=== PATIENT | female | born 1955 | race Caucasian/White ===

== ENCOUNTER → 2016-09-07 | Outpatient (CLI) | payer BC ==
[~2016-09-07] MED LIST: ALPR1TAB3 PO; B-CO1CAP17 PO; CHOL20007 PO; CLON1TAB3 PO; CLX/20 PO; FEXO1TAB58 PO; FLCP TOP; FLNIN NAE; FRCT/ PO; NATURAL THYROID MED; OLOP0.1S2 OPB; PATANASE; SNG10 PO; THY/30 PO
[2016-09-07 13:56] LABS: THYROID STIMULATING HORMONE 0.184 uIu/ml (0.300-4.500)
== END | disposition home or self-care (01) ==
LOC: C.LAB1850 11:46
PROVIDERS: ATTEND Internal Medicine
DX: E03.9 Hypothyroidism, unspecified (principal)

== ENCOUNTER → 2017-02-05 | Outpatient (CLI) | payer BC ==
[2017-02-05 12:33] LABS: BASO % 0.3 %; BASO ABS # 0.02 K/uL (0-0.2); COMPLETE YES; EOS % 1.1 %; HEMATOCRIT 40.3 % (37-47); IG% 0.2 %; LYMPH % 24.7 %; LYMPH ABS # 1.62 K/uL (1.2-3.4); MEAN CELL VOLUME 86.7 fL (80-100); MEAN CORPUSCULAR HEMOGLOBIN 29.9 pg (25-34); MEAN CORPUSCULAR HGB CONC 34.5 g/dl (32-36); MEAN PLATELET VOLUME 10.1 fL (7.4-10.4); MONO % 6.1 %; NEUT % 67.6 %; PLATELET COUNT 332 K/uL (130-400); RED BLOOD COUNT 4.65 M/uL (4.2-5.4); WHITE BLOOD COUNT 6.57 K/uL (4.8-10.8)
[2017-02-05 13:57] LABS: ALT/SGPT 23 U/L (12-78); AST/SGOT 17 U/L (15-37); BLOOD UREA NITROGEN 8 mg/dl (7-18); BUN/CREATININE RATIO 11.9 (10-20); CALCIUM 9.5 mg/dl (8.5-10.1); CARBON DIOXIDE 24 mmol/L (21-32); CHLORIDE 102 mmol/L (98-107); CREATININE 0.69 mg/dl (0.60-1.20); GLUCOSE 100 mg/dl (70-99); POTASSIUM 4.1 mmol/L (3.5-5.1); SODIUM 134 mmol/L (136-145)
[2017-02-05 14:08] LABS: ALKALINE PHOSPHATASE 92 U/L (45-117)
== END | disposition home or self-care (01) ==
LOC: C.LAB1850 11:04
PROVIDERS: ATTEND Physician Assistant
DX: E03.9 Hypothyroidism, unspecified (principal); R20.2 Paresthesia of skin; G43.109 Migraine with aura, not intractable, without status migrainosus

== ENCOUNTER 2017-03-20 10:19 | Emergency (ER) | payer BC ==
[~2017-03-20] VITALS: Ht 154.9 cm; Wt 61.8 kg
[~2017-03-20 10:19] MED LIST changes: -B-CO1CAP17 PO; -CHOL20007 PO; -CLON1TAB3 PO; -CLX/20 PO; -FEXO1TAB58 PO; -FLCP TOP; -FRCT/ PO; -OLOP0.1S2 OPB; -THY/30 PO
[2017-03-20 10:22] VITALS: TEMP 36.8; Ht 154.9 cm; Wt 61.8 kg
--- NOTE | 2017-03-20 10:47 | EMERGENCY ROOM VISIT NOTE ---
History Report prepared by Nathaniel: Maxwell Zacarias Under the Supervision of: Dr. Bud Castillo M.D. First contact with patient: 10:31 Chief Complaint: FALL Stated Complaint: HURT RIGHT FOOT BRUISED LEFT RIB History of Present Illness The patient is a 61 year old female who presents to the Emergency Room with complaints of left rib pain that began yesterday morning. At this time, she was walking her large dog when she experienced a fall. She did not lose consciousness, hit her head, or become weak. She is experiencing this rib pain along with right ankle pain. Her pain is exacerbated with movement. She rates her current pain severity a 2/10. She has a past medical history of asthma and previous right foot injuries. Source of History: patient Onset: yesterday Position: chest (left ribs) Symptom Intensity: 2/10 Quality: ache Timing: constant Modifying Factors (Worsening): movement Associated Symptoms: No LOC, No headache, No weakness Note: She is also having right ankle pain. Review of Systems All systems have been listed, reviewed, and are negative other than those previously mentioned. Please see Additional Medical History Sheet. Past Medical & Surgical Medical Problems: (1) Asthma (2) Fracture of lateral malleolus of right ankle Family History Omitted secondary to the patient's age. Social History Smoking Status: Never Smoker Smokeless Tobacco Use: No Alcohol Use: occasionally Drug Use: none Marital Status: Housing Status: lives with family Occupation Status: employed Current/Historical Medications Scheduled Cholecalciferol (Vitamin D3), 1 TAB PO Q2D Citalopram (Citalopram Hydrobromide), 30 MG PO HS Clonazepam (Klonopin), 1 MG PO HS Diclofenac Epolamine (Flector), 1 PATCH TOP BID Fexofenadine-Pseudoephedrine (Ruthie-D 24 Hour Allergy), 1 TAB PO DAILY Fluticasone Propionate (Flonase Nasal Randolph *), 1 SPRAY IRENA BID Olopatadine Hcl (Patanol 0.1% Oph), 1 DROP OPB BID Thyroid (Francitas Thyroid), 2 TAB PO DAILY Vitamin B Cmplx/Vitc/Folic Ac (Nephrocaps), 1 CAP PO Q2D Scheduled PRN Acetamin/Butalbital/Caffeine (Fioricet), 1 TAB PO UD PRN for Headache or Pain Allergies Coded Allergies: Vancomycin (Unverified Allergy, Severe, RASH, 03/20/17) Doxycycline (Unverified Allergy, Unknown, RASH,VOMITTING, 03/20/17) Erythromycin (Unverified Allergy, Unknown, rash, 03/20/17) Sodium Citrate (Unverified Adverse Reaction, Severe, Life-threatening ADR to ALL anticoagulants (Dx: CADASIL), 03/20/17) Life-threatening ADR to ALL anticoagulants (Dx: CADASIL) Sees Dr. Chairez (Neurology), pt requests that no anticoagualants ever be administered. Naproxen (Unverified Adverse Reaction, Unknown, elevated BP, 03/20/17) Physical Exam Vital Signs Date Time Temp Pulse Resp B/P (MAP) Pulse Ox O2 Delivery O2 Flow Rate FiO2 03/20/17 13:02 72 18 133/78 99 03/20/17 11:38 66 18 102/55 96 Room Air 03/20/17 10:22 36.8 68 16 113/70 96 Room Air Physical Exam GENERAL: Patient awake, alert, oriented x 3. Patient follows commands. Patient appears to be in minimal distress. Patient does not appear toxic. Patient is adequately hydrated and well-nourished. SKIN: No erythema, pallor, cyanosis or rash HEENT: Normal head, pupils equal, reactive to light and accommodation. LUNGS: Clear to auscultation. No wheezes, no rales, no rhonchi. HEART: No murmurs. No gallops. No rubs CHEST: Tenderness over the 5th-8th ribs to the left anterior chest. No ecchymosis or other signs of acute trauma. ABDOMEN: No masses, no rebound, no hepatomegaly or splenomegaly. EXTREMITIES: Swelling to the right lateral malleolus. No joint laxity. No breaks in the skin. Circulatory and sensory are intact. Motor function is limited secondary to pain. No pedal or pretibial edema. No calf or thigh tenderness. NEUROLOGIC: Cranial nerves II-XII within normal limits. No gross motor sensory function deficits. Medical Decision & Procedures ER Provider Diagnostic Interpretation: Radiology results as stated below per my review and radiologist interpretation: L RIBS UNILATERAL WITH PA CHEST CLINICAL HISTORY: fall left anterior 5-8 ribs COMPARISON STUDY: None. FINDINGS: The lungs are clear. The heart is normal in size. No pleural effusions. No pneumothorax. No acute rib fractures. IMPRESSION: No rib fractures. No pneumothorax. Electronically signed by: Rafi Fields M.D. 03/20/2017 12:21 PM Dictated Date/Time: 03/20/2017 12:19 PM RIGHT ANKLE 3 VIEWS HISTORY: Right ankle pain. sprain COMPARISON: Right ankle 01/10/2011. FINDINGS: Nondisplaced fracture at the distal tip of the right fibula. No dislocation. Diffuse soft tissue swelling. No radiopaque foreign bodies. IMPRESSION: Nondisplaced fracture at the distal tip of the right fibula. Electronically signed by: Rafi Fields M.D. 03/20/2017 12:19 PM Dictated Date/Time: 03/20/2017 12:18 PM ED Course 1031: Past medical records reviewed. The patient was evaluated in room B2. A complete history and physical examination was performed. 1235: I reevaluated the patient at this time. She is doing well. 1303: Upon reevaluation, the patient appeared to have improvement of her symptoms. I discussed today's findings with her. She verbalized agreement of the treatment plan. She was discharged home. Medical Decision Differential diagnoses considered include rib fractures, chest wall contusion, and ankle sprain/fracture. Rib x-rays are negative for fracture. The patient does not appear to have a pneumohemothorax or pulmonary contusion. X-rays of the ankle reveal a fracture of her distal fibula. She has had fractures in the past and I believe this represents an old fracture not a new one. We tried to fit her with a gel splint but that did not fit well. She has a splint at home which she will try to find. The patient was encouraged to follow-up with orthopedics in 10 days if symptoms are not resolving. The patient was given another prescription for Flector. The patient already has crutches. Medication Reconcilliation Current Medication List: was personally reviewed by me Blood Pressure Screening Patient's blood pressure: Normal blood pressure Blood pressure disposition: Did not require urgent referral Impression Primary Impression: Ankle sprain Additional Impressions: Fall Chest wall contusion Scribe Attestation The scribe's documentation has been prepared under my direction and personally reviewed by me in its entirety. I confirm that the note above accurately reflects all work, treatment, procedures, and medical decision making performed by me. Departure Information Dispostion Home / Self-Care Prescriptions Diclofenac Epolamine (Flector) 1 Patch Tdsy 1 PATCH TOP BID, #10 PATCH Prov: Bud Castillo M.D. 03/20/17 Referrals Lori Sahu D.O. (PCP) Forms HOME CARE DOCUMENTATION FORM, IMPORTANT VISIT INFORMATION Patient Instructions My [facility], Sprain Ankle Tx Additional Instructions Apply diclofenac patch twice a day to your ankle. Elevate your ankle as much as possible. Follow-up with orthopedics in 10 days if symptoms are not resolving. Problem Qualifiers
[2017-03-20] MEDS ORDERED: THY/30 PO (11:00)
[2017-03-20] MEDS ORDERED: OLOP0.1S2 OPB (11:00)
[2017-03-20] MEDS ORDERED: CLON1TAB3 PO (11:02)
[2017-03-20] MEDS ORDERED: CLX/20 PO (11:04)
[2017-03-20] MEDS ORDERED: FRCT/ PO (11:05)
[2017-03-20] MEDS ORDERED: CHOL20007 PO (11:07)
[2017-03-20] MEDS ORDERED: FEXO1TAB58 PO (11:07)
[2017-03-20] MEDS ORDERED: B-CO1CAP17 PO (11:07)
--- NOTE | 2017-03-20 12:20 | DIAGNOSTIC IMAGING REPORT ---
RIGHT ANKLE 3 VIEWS HISTORY: Right ankle pain. sprain COMPARISON: Right ankle 01/10/2011. FINDINGS: Nondisplaced fracture at the distal tip of the right fibula. No dislocation. Diffuse soft tissue swelling. No radiopaque foreign bodies. IMPRESSION: Nondisplaced fracture at the distal tip of the right fibula. Electronically signed by: Rafi Fields M.D. 03/20/2017 12:19 PM Dictated Date/Time: 03/20/2017 12:18 PM
--- NOTE | 2017-03-20 12:22 | DIAGNOSTIC IMAGING REPORT ---
L RIBS UNILATERAL WITH PA CHEST CLINICAL HISTORY: fall left anterior 5-8 ribs COMPARISON STUDY: None. FINDINGS: The lungs are clear. The heart is normal in size. No pleural effusions. No pneumothorax. No acute rib fractures. IMPRESSION: No rib fractures. No pneumothorax. Electronically signed by: Rafi Fields M.D. 03/20/2017 12:21 PM Dictated Date/Time: 03/20/2017 12:19 PM
[2017-03-20] MEDS ORDERED: FLCP TOP (12:49)
[2017-03-20 13:02] VITALS: BP 133/78; PULSE 72; O2SAT 99
== END 2017-03-20 13:03 | disposition home or self-care (01) ==
LOC: C.EDB 10:21
DX: S93.401A Sprain of unspecified ligament of right ankle, initial encounter (principal); S20.20XA Contusion of thorax, unspecified, initial encounter; W19.XXXA Unspecified fall, initial encounter; Y93.K1 Activity, walking an animal; Y99.8 Other external cause status; J45.909 Unspecified asthma, uncomplicated

== ENCOUNTER → 2018-01-27 | Outpatient (CLI) | payer OTHER ==
[~2018-01-27] MED LIST changes: -ALPR1TAB3 PO; +B-CO1CAP17 PO; +CHOL20007 PO; +CLON1TAB5 PO; +CLX/20 PO; +FEXO1TAB58 PO; +FLCP TOP; +FRCT/ PO; -NATURAL THYROID MED; +OLOP0.1S3 OPB; +OPTIRAY 320 IV PRN; -PATANASE; -SNG10 PO; +THY/30 PO
[2018-01-27 17:50] LABS: HEMATOCRIT 40.5 % (37-47); HEMOGLOBIN 14.1 g/dL (12.0-16.0); MEAN CELL VOLUME 85.4 fL (80-100); MEAN CORPUSCULAR HEMOGLOBIN 29.7 pg (25-34); MEAN PLATELET VOLUME 10.1 fL (7.4-10.4); PLATELET COUNT 339 K/uL (130-400); RED CELL DISTRIBUTION WIDTH CV 12.7 % (11.5-14.5); RED CELL DISTRIBUTION WIDTH SD 39.5 fL (36.4-46.3); WHITE BLOOD COUNT 10.19 K/uL (4.8-10.8)
[2018-01-27 17:54] LABS: MEAN CORPUSCULAR HGB CONC 34.8 g/dl (32-36)
[2018-01-27 18:10] LABS: ALBUMIN 4.1 gm/dl (3.4-5.0); ALT/SGPT 16 U/L (12-78); AST/SGOT 16 U/L (15-37); BLOOD UREA NITROGEN 10 mg/dl (7-18); CALCIUM 9.3 mg/dl (8.5-10.1); CARBON DIOXIDE 25 mmol/L (21-32); CREATININE 0.63 mg/dl (0.60-1.20); GLUCOSE 92 mg/dl (70-99); LIPASE 116 U/L (73-393); SODIUM 133 mmol/L (136-145)
[2018-01-27 18:12] LABS: ALKALINE PHOSPHATASE 88 U/L (45-117); TOTAL PROTEIN 7.5 gm/dl (6.4-8.2)
--- NOTE | 2018-01-27 20:11 | DIAGNOSTIC IMAGING REPORT ---
CT SCAN OF THE ABDOMEN AND PELVIS WITH IV CONTRAST CLINICAL HISTORY: Generalized abdominal pain. Diarrhea. COMPARISON STUDY: No priors. TECHNIQUE: Following the IV administration of 116 cc of Optiray 320, CT scan of the abdomen and pelvis is performed from the lung bases to the proximal femora. Images are reviewed in the axial, sagittal, and coronal planes. IV contrast was administered without complication. A dose lowering technique was utilized adhering to the principles of ALARA. CT DOSE: 257.21 mGy.cm FINDINGS: Lung bases: The heart is normal in size and without pericardial effusion. Calcified granulomas are present both lung bases. The lung bases are otherwise clear noting scarring/atelectasis. Liver: The contrast-enhanced liver is normal in size, contour, and attenuation. There is no intrahepatic biliary ductal dilatation. The hepatic veins and portal veins are patent. Gallbladder: Unremarkable. Spleen: Normal in size and attenuation. Pancreas: Unremarkable. Adrenal glands: Unremarkable. Kidneys: The contrast enhanced kidneys are normal in size and without hydronephrosis. The kidneys enhance symmetrically. Abdominal vasculature: The abdominal aorta is normal in course and caliber noting mild atherosclerotic calcification. Bowel: There are scattered colonic diverticula without CT evidence of acute diverticulitis. No bowel obstruction is seen. The left colon is largely decompressed. The appendix is not identified. No inflammatory change is seen in the right lower quadrant to suggest acute appendicitis. Peritoneum: There is no intraperitoneal free air or abdominal ascites. Lymphadenopathy: None. Pelvic viscera: The bladder, uterus, and adnexa are normal as visualized. Skeletal structures: The skeletal structures are osteopenic. There is mild lumbosacral spondylosis. No lytic or blastic lesions are seen. IMPRESSION: 1. There are no acute infectious or inflammatory findings in the abdomen or pelvis. 2. The appendix was not clearly visualized. No inflammatory change is seen in the right lower quadrant to suggest acute appendicitis. 3. Additional findings as above. Electronically signed by: Amor Penny M.D. 01/27/2018 8:10 PM Dictated Date/Time: 01/27/2018 8:02 PM
== END | disposition home or self-care (01) ==
LOC: C.CTS 17:26
PROVIDERS: ATTEND Family Medicine
DX: R10.84 Generalized abdominal pain (principal)

== ENCOUNTER → 2018-01-28 | Outpatient (CLI) | payer OTHER ==
[~2018-01-28] MED LIST changes: -OPTIRAY 320 IV PRN
== END | disposition home or self-care (01) ==
LOC: C.LAB 14:01
PROVIDERS: ATTEND Family Medicine
DX: R10.84 Generalized abdominal pain (principal); R19.7 Diarrhea, unspecified

== ENCOUNTER 2022-03-27 04:38 | Inpatient (IN) ==
[2022-03-27] MEDS ORDERED: MoRPHine SULFATE 4 MG/ML 1 ML CARP\\VIAL IV STA (04:58)
[2022-03-27] MEDS ORDERED: SODIUM CHLORIDE 0.9% 500 ML IV STA (04:58)
--- NOTE | 2022-03-27 05:01 | Emergency Department Note ---
Impression & Plan Colitis ADMIT ED Provider Note HPI: The patient is a 66-year-old female with history of CADASIL d/o, who presents the emergency department with generalized abdominal pain as well as nausea, vomiting, and rectal bleeding that is been ongoing throughout the day today in the evening tonight. Patient states that her symptoms seem to have acutely worsened overnight, she had several episodes of blood per rectum. Patient states that she has generalized abdominal pain. On arrival here to the ED the patient is in no acute distress, she is hemodynamically stable, she is saturating well on room air. ROS: -GI: Abdominal pain, blood per rectum *10 point review systems was conducted and is otherwise negative unless stated above *Outpatient medications and allergy history reviewed PE: General: Alert HEENT: Normocephalic, trachea midline Eyes: Extraocular eye movement is intact, no scleral erythema Pulmonary: Clear to auscultation bilaterally, no wheezing Cardio: Regular rate and rhythm GI: Abdomen is soft, tenderness to palpation diffusely without guarding or rigidity, rectal examination performed with female RN at the bedside does not show any evidence of active/gross bleeding, small external hemorrhoid without active bleeding : No suprapubic tenderness MSK: No evidence of trauma or malformation of the extremities, no edema Skin: No evidence of rash Neuro: Alert, no focal deficits 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 CT imaging of the abdomen pelvis was obtained and is concerning for an acute colitis, possibly ischemic colitis given pattern near the splenic flexure on the left side. Patient does complain of some rectal bleeding that occurred overnight, her hemoglobin is stable, slight leukocytosis greater than 14,000, no evidence of any acute kidney injury on lab work, BUN is within normal limits. Patient was given morphine here in the ED for her discomfort, she was also given IV fluids. Given the finding on CT imaging General surgery was consulted, patient was evaluated by general surgery PA, Vernell Dominguez and staffed with Dr. Nichole, recommendation was made by the general surgery service for admission to the medicine service and they will follow as consult. Patient does have a sodium citrate allergy listed, this did flag as a potential interaction with Zosyn, pharmacy was consulted and formulation we have in stock here at the hospital does not have sodium citrate per company's website information therefore Zosyn was ordered for the patient. I did asked the patient specifically about this allergy listed to sodium citrate and she tells me she does not know why it is listed. Patient was in agreement to this plan. Case was discussed [place] [facility] [place], and the patient was admitted in stable condition for further care. Diagnosis: 1. Acute abdominal pain 2. Blood per rectum 3. Colitis, acute Disposition: Admission Cristhian Collier DO Emergency Medicine Past Med/Surg History Family History (Updated 05/23/19 @ 16:29 by Linda Daniels LPN) Father CADASIL (cerebral AD arteriopathy w infarcts and leukoencephalopathy) Mother Stroke Diabetes Breast cancer Aunt Breast cancer Social History (Updated 05/23/19 @ 16:29 by Linda Daniels LPN) Smoking Status: Never smoker Feels Safe at Home: Yes Allergies Allergies Allergy/AdvReac Type Severity Reaction Status Date / Time vancomycin Allergy Severe RASH Unverified 05/06/21 13:03 doxycycline Allergy Unknown RASH,VOMITT Unverified 05/06/21 13:03 ING erythromycin base Allergy Unknown rash Unverified 05/06/21 13:03 sodium citrate AdvReac Severe Life-threatening Unverified 05/06/21 13:03 ADR to ALL anticoagulants (Dx: CADASIL) naproxen AdvReac Unknown elevated BP Unverified 05/06/21 13:03 Animal dander - Cats Allergy Unknown Uncoded 05/06/21 13:03 Animal dander - Dogs Allergy Unknown Uncoded 05/06/21 13:03 Animal dander - Horses Allergy Unknown Uncoded 05/06/21 13:03 Dust Allergy Unknown Uncoded 05/06/21 13:03 Grass Allergy Unknown Uncoded 05/06/21 13:03 Pollen Allergy Unknown Uncoded 05/06/21 13:03 Tetracyclines Allergy Unknown Uncoded 05/06/21 13:03 Trees Allergy Unknown Uncoded 05/06/21 13:03 Vibramycin CAPS Allergy Unknown Uncoded 05/06/21 13:03 Vicodin TABS Allergy Unknown Uncoded 05/06/21 13:03 Home Meds Home Medications Medication Instructions Recorded Confirmed arginine (L-arginine) 500 mg 1 cap PO .Take 1 capsule twice 05/23/19 05/06/21 capsule azelastine 137 mcg (0.1 %) nasal intranasal 05/23/19 05/06/21 spray aerosol fluticasone propionate 220 inhalation .INHALE 2 PUFFS TWICE 05/23/19 05/06/21 mcg/actuation HFA aerosol inhaler fluticasone propionate 50 intranasal .instill 2 sprays int 05/23/19 05/06/21 mcg/actuation nasal spray,suspension multivitamin with minerals [Akorns PO 05/23/19 05/06/21 Antioxidants] olopatadine 0.2 % eye drops ophthalmic (eye) 05/23/19 05/06/21 thyroid (pork) 60 mg tablet mg PO .TAKE 1 TABLET DAILY. 05/23/19 05/06/21 citalopram 20 mg tablet 30 mg PO DAILY 04/10/20 05/06/21 lorazepam 1 mg tablet 1 mg PO DAILY PRN 04/10/20 05/06/21 baclofen PO 10/08/20 05/06/21 Previous Rx's Medication Instructions Recorded aspirin 81 mg tablet,delayed 81 mg PO DAILY #30 tabs 12/24/20 release [id number]-ddobxtwplwanb-cznvlefa 1 tab PO BID PRN pain #30 tabs 11/26/21 50 mg-325 mg-40 mg tablet Results & Data (ED) Vital Signs Vital Signs - 24 hr 03/27/22 04:45 03/27/22 05:10 03/27/22 06:30 Temperature 36.6 C Temperature Source Temporal Artery Scan Pulse Rate 78 Pulse Rate [Finger] 78 Respiratory Rate 18 20 Respiratory Effort / Characteristics Respiratory Depth Respiratory Pattern Blood Pressure 145/78 H Blood Pressure [Right Arm] 145/74 H Blood Pressure Mean 100 Blood Pressure Mean [Right Arm] 97 Pulse Oximetry 95 96 93 Oxygen Delivery Method Room Air Room Air Room Air Sepsis Recent Fever Within 48 Hours No Sepsis New/Unexplained Change in Mental Status No Sepsis Action Taken by Nursing No Action Required 03/27/22 08:00 Temperature Temperature Source Pulse Rate Pulse Rate [Finger] 74 Respiratory Rate 18 Respiratory Effort / Characteristics Non-Labored Respiratory Depth Normal Respiratory Pattern Regular Blood Pressure Blood Pressure [Right Arm] 129/85 Blood Pressure Mean Blood Pressure Mean [Right Arm] 99 Pulse Oximetry 93 Oxygen Delivery Method Room Air Sepsis Recent Fever Within 48 Hours Sepsis New/Unexplained Change in Mental Status Sepsis Action Taken by Nursing Laboratory Data Result diagrams: 03/27/22 05:12 03/27/22 05:12 Lab Results 03/27/22 03/27/22 03/27/22 Range/Units 05:12 05:12 06:25 WBC 14.61 H (4.8-10.8) K/ul RBC 4.72 (3.93-5.22) M/uL Hgb 14.2 (12.0-16.0) g/dl Hct 40.7 (34.1-44.9) % MCV 86.2 (80.0-100.0) fL MCH 30.1 (25.0-34.0) pg MCHC 34.9 (32.0-36.0) g/dL RDW Std Deviation 39.5 (36.4-46.3) fL RDW Coeff of Kelly 12.5 (11.5-14.5) % Plt Count 475 H (130-400) K/uL MPV 9.5 (9.4-12.3) fL Immature Gran % (Auto) 0.3 % Neut % (Auto) 90.1 % Lymph % (Auto) 4.7 % [place] % (Auto) 4.5 % Eos % (Auto) 0.1 % Baso % (Auto) 0.3 % Neut # (Auto) 13.17 H (1.4-6.5) K/uL Lymph # (Auto) 0.69 L (1.2-3.4) K/uL [place] # (Auto) 0.66 (0.24-0.82) K/uL Eos # (Auto) 0.01 (0-0.50) K/uL Baso # (Auto) 0.04 (0-0.2) K/uL Immature Gran # (Auto) 0.04 H (0.00-0.02) K/uL RBC Morphology Unremarkable Sodium 132 L (136-145) mmol/L Potassium 4.0 (3.5-5.1) mmol/L Chloride 99 (98-107) mmol/L Carbon Dioxide 23 (21-32) mmol/L Anion Gap 10 (3-11) BUN 13 (6-23) mg/dl Creatinine 0.60 (0.6-1.2) mg/dl Est Cr Clr Drug Dosing 76.2 ml/min Est GFR ( Amer) 109.3 ml/min Est GFR (Non-Af Amer) 94.3 ml/min BUN/Creatinine Ratio 21.7 H (10-20) Glucose 149 H (70-99(Fasting)) mg/dl Calcium 9.4 (8.5-10.1) mg/dl Total Bilirubin 0.6 (0.2-1.0) mg/dl AST 16 (13-39) U/L ALT 12 (7-52) U/L Alkaline Phosphatase 87 (34-104) U/L Total Protein 7.7 (6.0-8.3) gm/dl Albumin 4.4 (3.4-5.0) gm/dl Globulin 3.3 (2.5-4.0) gm/dl Albumin/Globulin Ratio 1.3 (0.9-2) Lipase 12 (11-82) U/L Urine Color Yellow Urine Appearance Clear (Clear) Urine pH 7.0 (4.5-7.5) Ur Specific [place] 1.025 (1.000-1.030) Urine Protein Negative (Negative) Urine Glucose (UA) Negative (Negative) Urine Ketones Negative (Negative) Urine Blood Negative (Negative) Urine Nitrite Negative (Negative) Urine Bilirubin Negative (Negative) Urine Urobilinogen Negative (Negative) Ur Leukocyte Esterase Negative (Negative) SARS-CoV-2, RNA, NAAT (NEGATIVE) 03/27/22 Range/Units 07:12 WBC (4.8-10.8) K/ul RBC (3.93-5.22) M/uL Hgb (12.0-16.0) g/dl Hct (34.1-44.9) % MCV (80.0-100.0) fL MCH (25.0-34.0) pg MCHC (32.0-36.0) g/dL RDW Std Deviation (36.4-46.3) fL RDW Coeff of Kelly (11.5-14.5) % Plt Count (130-400) K/uL MPV (9.4-12.3) fL Immature Gran % (Auto) % Neut % (Auto) % Lymph % (Auto) % [place] % (Auto) % Eos % (Auto) % Baso % (Auto) % Neut # (Auto) (1.4-6.5) K/uL Lymph # (Auto) (1.2-3.4) K/uL [place] # (Auto) (0.24-0.82) K/uL Eos # (Auto) (0-0.50) K/uL Baso # (Auto) (0-0.2) K/uL Immature Gran # (Auto) (0.00-0.02) K/uL RBC Morphology Sodium (136-145) mmol/L Potassium (3.5-5.1) mmol/L Chloride (98-107) mmol/L Carbon Dioxide (21-32) mmol/L Anion Gap (3-11) BUN (6-23) mg/dl Creatinine (0.6-1.2) mg/dl Est Cr Clr Drug Dosing ml/min Est GFR ( Amer) ml/min Est GFR (Non-Af Amer) ml/min BUN/Creatinine Ratio (10-20) Glucose (70-99(Fasting)) mg/dl Calcium (8.5-10.1) mg/dl Total Bilirubin (0.2-1.0) mg/dl AST (13-39) U/L ALT (7-52) U/L Alkaline Phosphatase (34-104) U/L Total Protein (6.0-8.3) gm/dl Albumin (3.4-5.0) gm/dl Globulin (2.5-4.0) gm/dl Albumin/Globulin Ratio (0.9-2) Lipase (11-82) U/L Urine Color Urine Appearance (Clear) Urine pH (4.5-7.5) Ur Specific [place] (1.000-1.030) Urine Protein (Negative) Urine Glucose (UA) (Negative) Urine Ketones (Negative) Urine Blood (Negative) Urine Nitrite (Negative) Urine Bilirubin (Negative) Urine Urobilinogen (Negative) Ur Leukocyte Esterase (Negative) SARS-CoV-2, RNA, NAAT NEGATIVE (NEGATIVE) Administered Medications Discontinued Medications Sodium Chloride (Nss) 500 mls @ 999 mls/hr IV .Q31M STA Stop: 03/27/22 05:28 Last Infusion: 03/27/22 05:49 Dose: 0 mls/hr Documented By: Admin: 03/27/22 05:18 Dose: 999 mls/hr Documented By: CHRIS Ioversol (Ioversol 350 Mg 100ml Prefilled Syringe) 94 ml IV ONCE ONE Stop: 03/27/22 06:18 Last Admin: 03/27/22 06:17 Dose: 94 ml Documented By: STEPHANIE Morphine Sulfate (Morphine Sulfate 4 Mg/Ml 1 Ml Carp\Vial) 4 mg IV NOW STA Stop: 03/27/22 04:59 Last Admin: 03/27/22 05:18 Dose: 4 mg Documented By: CHRIS Imaging Data Radiologist's Impression: Abdomen/Pelvis CT 03/27/22 04:59 CT OF THE ABDOMEN AND PELVIS WITH CONTRAST CLINICAL HISTORY: N/V abdominal pain, rectal bleeding COMPARISON STUDY: CT of the abdomen and pelvis January 27, 2018. TECHNIQUE: Following IV administration of 94 mL of Optiray, axial images of the abdomen and pelvis were obtained from the lung bases to the proximal femurs. Images were reviewed in the axial, sagittal, and coronal planes. IV contrast was administered without complication. Automated exposure control was utilized for the study. A dose lowering technique was utilized adhering to the principles of ALARA. CT DOSE: 279.40 mGy.cm FINDINGS: There is evidence for a previous granulomatous process with calcified mediastinal and hilar lymph nodes as well as calcified granulomas within the lung bases. No pneumatosis, free air or portal venous gas is present. Liver, spleen, adrenal glands, kidneys and pancreas are unremarkable. There is no shivani iary or pancreatic ductal dilatation. There is no hydronephrosis. There is no evidence for a bowel obstruction. Note is made of moderate wall thickening with adjacent stranding of the mid to distal descending colon, splenic flexure and descending colon. No free air is present. There is no abscess. There is no evidence for a bowel obstruction. The appendix is normal. Moderate plaque of the abdominal aorta is noted. Major branch vessels are patent. No ascites is present. There is no lymphadenopathy. No acute fracture or suspicious lesion is identified within visualized skeletal structures. IMPRESSION: Moderate wall thickening of the mid to distal transverse colon, splenic flexure and descending colon with pericolonic infiltration. This r epresents a colitis. Although nonspecific, this distribution raises the possibility of ischemic colitis. An infectious or inflammatory etiology could appear similar. No free air. No abscess. ACT 112: Negative or not required by law. Electronically signed by: John Mayes M.D. 03/27/2022 6:53 AM Discharge Plan Visit Data Chief Complaint: Vomiting Stated Complaint: VOMITING AND BLOOD IN STOOL ED Provider: Cristhian Collier Discharge Problem: Colitis Forms Stand Alone Forms: My [facility] Prescriptions Prescriptions: No Action aspirin 81 mg tablet,delayed release (DR/EC) 81 mg PO DAILY Qty: 30 2RF toytrkohzv-lfcpkxfcgkgln-kntr 50-325-40 mg tablet 1 tab PO BID PRN (Reason: pain) Qty: 30 1RF arginine (L-arginine) 500 mg capsule 1 cap PO .Take 1 capsule twice thyroid (pork) 60 mg tablet PO .TAKE 1 TABLET DAILY. olopatadine 0.2 % drops OP Flovent HFA 220 mcg/actuation HFA aerosol inhaler INH .INHALE 2 PUFFS TWICE azelastine 137 mcg (0.1 %) aerosol,spray INTNAS fluticasone propionate 50 mcg/actuation spray,suspension INTNAS .instill 2 sprays int multivitamin with minerals PO lorazepam 1 mg tablet 1 mg PO DAILY PRN citalopram 20 mg tablet 30 mg PO DAILY baclofen PO Referrals Referrals: Edith Pantoja CRNP [Primary Care Provider] -
[2022-03-27 05:21] LABS: Hematocrit (blood only) 40.7 % (34.1-44.9); Hemoglobin 14.2 g/dl (12.0-16.0); Mean Corpuscular Hemoglobin 30.1 pg (25.0-34.0); Mean Corpuscular Hgb Conc 34.9 g/dL (32.0-36.0); Mean Corpuscular Volume 86.2 fL (80.0-100.0); Mean Platelet Volume 9.5 fL (9.4-12.3); Platelet Count 475 K/uL (130-400); RDW Coefficient of Variation 12.5 % (11.5-14.5); RDW Standard Deviation 39.5 fL (36.4-46.3); Red Blood Count 4.72 M/uL (3.93-5.22); White Blood Count 14.61 K/ul (4.8-10.8)
[2022-03-27 05:48] LABS: Albumin Globulin Ratio 1.3 (0.9-2); Albumin Level 4.4 gm/dl (3.4-5.0); BUN Creatinine Ratio 21.7 (10-20); Bilirubin,Total 0.6 mg/dl (0.2-1.0); Calcium 9.4 mg/dl (8.5-10.1); Creatinine Clr Calc Pharmacy 76.2 ml/min; Est GFR (African American) 109.3 ml/min; Est GFR (Non-African American) 94.3 ml/min; Globulin 3.3 gm/dl (2.5-4.0); Total Protein 7.7 gm/dl (6.0-8.3)
[2022-03-27 05:54] LABS: Basophils # (auto) 0.04 K/uL (0-0.2); Basophils % (auto) 0.3 %; Eosinophils # (auto) 0.01 K/uL (0-0.50); Eosinophils % (auto) 0.1 %; Immature Granulocytes # (auto) 0.04 K/uL (0.00-0.02); Immature Granulocytes % (auto) 0.3 %; Lymphocytes # (auto) 0.69 K/uL (1.2-3.4); Lymphocytes % (auto) 4.7 %; Monocytes # (auto) 0.66 K/uL (0.24-0.82); Monocytes % (auto) 4.5 %; Neutrophils # (auto) 13.17 K/uL (1.4-6.5); Neutrophils % (auto) 90.1 %; RBC Morphology Unremarkable
[2022-03-27] MEDS ORDERED: IOVERSOL 350 MG 100mL Prefilled Syringe IV ONE (06:17)
[2022-03-27 06:42] LABS: Appearance Urine Clear (Clear); Bilirubin Urine Negative (Negative); Blood Urine Negative (Negative); Color Urine Yellow; Glucose Urine UA Negative (Negative); Ketones Urine Negative (Negative); Leukocyte Esterase Urine Negative (Negative); Nitrite Urine Negative (Negative); Protein Urine Negative (Negative); Specific Gravity Urine 1.025 (1.000-1.030); Urobilinogen Urine Negative (Negative)
--- NOTE | 2022-03-27 06:56 | CT Scan Report ---
CT OF THE ABDOMEN AND PELVIS WITH CONTRAST CLINICAL HISTORY: N/V abdominal pain, rectal bleeding COMPARISON STUDY: CT of the abdomen and pelvis January 27, 2018. TECHNIQUE: Following IV administration of 94 mL of Optiray, axial images of the abdomen and pelvis we re obtained from the lung bases to the proximal femurs. Images were reviewed in the axial, sagittal, and coronal planes. IV contrast was administered without complication. Automated exposure control wa s utilized for the study. A dose lowering technique was utilized adhering to the principles of ALARA . CT DOSE: 279.40 mGy.cm FINDINGS: There is evidence for a previous granulomatous process with calcified mediastinal and hilar lymph nodes as well as calcified granulomas within the lung bases. No pneumatosis, free air or rohith l venous gas is present. Liver, spleen, adrenal glands, kidneys and pancreas are unremarkable. There is no biliary or pancreatic ductal dilatation. There is no hydronephrosis. There is no evidence for a bowel obstruction. Note is made of moderate wall thickening with adjacent stranding of the mid to di stal descending colon, splenic flexure and descending colon. No free air is present. There is no absc ess. There is no evidence for a bowel obstruction. The appendix is normal. Moderate plaque of the abd ominal aorta is noted. Major branch vessels are patent. No ascites is present. There is no lymphadeno simi. No acute fracture or suspicious lesion is identified within visualized skeletal structures. IMPRESSION: Moderate wall thickening of the mid to distal transverse colon, splenic flexure and desc ending colon with pericolonic infiltration. This represents a colitis. Although nonspecific, this dis tribution raises the possibility of ischemic colitis. An infectious or inflammatory etiology could ap pear similar. No free air. No abscess. ACT 112: Negative or not required by law. Electronically signed by: John Mayes M.D. 03/27/2022 6:53 AM
--- NOTE | 2022-03-27 08:03 | Surgery Consultation ---
Date of Consultation March 27, 2022 Assessment & Plan (1) Colitis: This is a 66y F with a PMH of depression/anxiety, BLAKE's, CADASIL who presents to the [facility] ED on 03/27/22 with complaints of abdominal pain, nausea/vomiting and rectal bleeding with symptoms progressing since Wednesday. In the ER she underwent a CT a/p that revealed "moderate wall thickening of the mid to distal transverse colon, splenic flexure and descending colon with pericolonic infiltration. This represents a colitis. Although nonspecific, this distribution raises the possibility of ischemic colitis. An infectious or inflammatory etiology could appear similar." WBC elevated at 14, Hbg 14, Cr: 0.6. Patient's vital signs are stable. On exam abdomen is soft, non distended with tenderness to palpation along the L side of the abdomen. Our recommendations would be keep patient NPO for bowel rest, IVF resuscitation, and IV abx. Would consider GI consultation for findings of colitis of unclear etiology, last colonoscopy 10 years ago. Stool studies have been ordered. Monitor hbg. No plans for acute surgical intervention at this time. Will follow along. Supervising Physician Co-Signing Physician Notes Patient seen and examined, labs and image reviewed, agree with above. 66-year-old female presented with nausea and abdominal discomfort with bloody bowel movements. She is had some GI issues over the past 3 weeks. Not on any blood thinners. On exam she is afebrile with stable vitals. Her abdomen is soft, tender to palpation in the left upper quadrant and left side. No guarding or rebound. WBC 14. CT personally reviewed and interpreted by myself and agree with the assessment of a nonspecific colitis of the distal transverse, splenic flexure, and descending colon. Given the location this could represent ischemic colitis. No surgical intervention indicated at this time. Recommend admission to medicine, n.p.o., antibiotics, IV fluids. Recommend GI consult. Patient will need colonoscopy as an outpatient once inflammation improves. Surgery will continue to follow, call with questions or concerns. History of Present Illness History of Present Illness This is a 66y F with a PMH of depression/anxiety, BLAKE's, CADASIL who presents to the [facility] ED on 03/27/22 with complaints of abdominal pain, nausea/vomiting and rectal bleeding. Patient states she developed diarrhea starting Wednesday at 3p that lasted until 9pm. Then Wednesday she noticed blood in her BM she quantifies about ~2tsp. She went to Urgent Care to be evaluated, but left as the line was long. Yesterday again the patient had multiple bouts of diarrhea with increasing amounts of bright red blood in her stool (no clots noted). In addition she developed generalized abdominal pain, rating it a 10/10 in severity at its worst, associated with nausea/vomiting (no hematemesis). In the ER she underwent a CT a/p that revealed "moderate wall thickening of the mid to distal transverse colon, splenic flexure and descending colon with pericolonic infiltration. This represents a colitis. Although nonspecific, this distribution raises the possibility of ischemic colitis. An infectious or inflammatory etiology could appear similar." Patient denies any history of abdominal surgery. Last colonoscopy was 10 years ago with [facility] (reports no issues). Denies any sick contacts. Is on a baby aspirin. Currently rates her pain a 6/10 upon my interview. Allergies Allergy/AdvReac Type Severity Reaction Status Date / Time argatroban Allergy Severe Unknown Verified 03/27/22 09:50 dabigatran etexilate Allergy Severe Unknown Verified 03/27/22 09:50 [From Pradaxa] vancomycin Allergy Severe RASH Unverified 05/06/21 13:03 acetaminophen [From Vicodin] Allergy Unknown Unknown Verified 03/27/22 09:39 doxycycline Allergy Unknown RASH,VOMITT Unverified 05/06/21 13:03 ING erythromycin base Allergy Unknown rash Unverified 05/06/21 13:03 hydrocodone [From Vicodin] Allergy Unknown Unknown Verified 03/27/22 09:39 cat dander Allergy Unknown Verified 03/27/22 09:44 dog dander Allergy Unknown Verified 03/27/22 09:44 grass pollen Allergy Unknown Verified 03/27/22 09:44 horse dander Allergy Unknown Verified 03/27/22 09:44 tree nut Allergy Unknown Verified 03/27/22 09:44 apixaban AdvReac Severe Life-threatening Verified 03/27/22 09:56 ADR to ALL anticoagulants (Dx: CADASIL) edoxaban AdvReac Severe Life-threatening Verified 03/27/22 09:56 ADR to ALL anticoagulants (Dx: CADASIL) enoxaparin AdvReac Severe Life-threatening Verified 03/27/22 09:56 ADR to ALL anticoagulants (Dx: CADASIL) heparin AdvReac Severe Life-threatening Verified 03/27/22 09:56 ADR to ALL anticoagulants (Dx: CADASIL) rivaroxaban AdvReac Severe Life-threatening Verified 03/27/22 09:56 ADR to ALL anticoagulants (Dx: CADASIL) sodium citrate AdvReac Severe Life-threatening Unverified 03/27/22 09:54 ADR to ALL anticoagulants (Dx: CADASIL) warfarin AdvReac Severe Life-threatening Verified 03/27/22 09:56 ADR to ALL anticoagulants (Dx: CADASIL) naproxen AdvReac Unknown elevated BP Unverified 05/06/21 13:03 Dust Allergy Unknown Unknown Uncoded 03/27/22 09:39 Home Medications Medication Instructions Recorded Confirmed Type arginine (L-arginine) 500 mg 1 cap PO .Take 1 capsule twice 05/23/19 05/06/21 History capsule azelastine 137 mcg (0.1 %) nasal intranasal 05/23/19 05/06/21 History spray aerosol fluticasone propionate 220 inhalation .INHALE 2 PUFFS TWICE 05/23/19 05/06/21 History mcg/actuation HFA aerosol inhaler fluticasone propionate 50 intranasal .instill 2 sprays int 05/23/19 05/06/21 History mcg/actuation nasal spray,suspension multivitamin with minerals [Akorns PO 05/23/19 05/06/21 History Antioxidants] olopatadine 0.2 % eye drops ophthalmic (eye) 05/23/19 05/06/21 History thyroid (pork) 60 mg tablet mg PO .TAKE 1 TABLET DAILY. 05/23/19 05/06/21 History citalopram 20 mg tablet 30 mg PO DAILY 04/10/20 05/06/21 History lorazepam 1 mg tablet 1 mg PO DAILY PRN 04/10/20 05/06/21 History baclofen PO 10/08/20 05/06/21 History aspirin 81 mg tablet,delayed 81 mg PO DAILY #30 tabs 12/24/20 05/06/21 Rx release ryadnogwaw-odkbpunnbovhc-awpcdpeo 1 tab PO BID PRN pain #30 tabs 11/26/21 Rx 50 mg-325 mg-40 mg tablet Patient History Family History Father CADASIL (cerebral AD arteriopathy w infarcts and leukoencephalopathy) Mother Stroke Diabetes Breast cancer Aunt Breast cancer Social History Smoking Status: Never smoker Second Hand Exposure: No; Do You Dip or Chew Tobacco: No; Tobacco Cessation Education Requested by Patient: No Hx Alcohol Use: Yes Alcohol type: wine Hx Substance Use: Yes Last Used Substance: Days (ago) Last Used Substance Other:: yesterday Preferred Language: Yakut Communication Ability: Effective Paramedic Supervisor Required: No Beliefs That Will Affect Care: None Current Living Situation: Spouse Other Information That Helps Us Care for You: No Feels Safe at Home: Yes Safety Concerns: Feels Safe At This Time Assistive Devices: Glasses Review of Systems Constitutional: + fever and + chills Respiratory: no dyspnea Cardiovascular: no chest pain Gastrointestinal: + abdominal pain, + nausea, + vomiting, + diarrhea/loose stools and + blood in stools Neurologic: + headache(s) Physical Exam Physical Exam: awake/alert Constitutional: well developed and well nourished; no acute distress Respiratory: normal respiratory effort Gastrointestinal (Abdomen): Inspection/Auscultation: abdomen not distended Percussion/Palpation: + abdomen tender (tender to palpation along the left side of abdomen ) and abdomen soft; no guarding and abdomen not firm Results & Data ([facility]) Vital Signs (Past 12 Hours) Vital Signs Temp Pulse Pulse Resp BP BP Pulse Ox 03/27/22 06:30 78 20 145/74 H 93 03/27/22 05:10 96 03/27/22 04:45 36.6 C 78 18 145/78 H 95 O2 Del Method 03/27/22 06:30 Room Air 03/27/22 05:10 Room Air 03/27/22 04:45 Room Air Diagnostic Findings CT OF THE ABDOMEN AND PELVIS WITH CONTRAST CLINICAL HISTORY: N/V abdominal pain, rectal bleeding COMPARISON STUDY: CT of the abdomen and pelvis January 27, 2018. TECHNIQUE: Following IV administration of 94 mL of Optiray, axial images of the abdomen and pelvis were obtained from the lung bases to the proximal femurs. Images were reviewed in the axial, sagittal, and coronal planes. IV contrast was administered without complication. Automated exposure control was utilized for the study. A dose lowering technique was utilized adhering to the principles of ALARA. CT DOSE: 279.40 mGy.cm FINDINGS: There is evidence for a previous granulomatous process with calcified mediastinal and hilar lymph nodes as well as calcified granulomas within the lung bases. No pneumatosis, free air or portal venous gas is present. Liver, spleen, adrenal glands, kidneys and pancreas are unremarkable. There is no biliary or pancreatic ductal dilatation. There is no hydronephrosis. There is no evidence for a bowel obstruction. Note is made of moderate wall thickening with adjacent stranding of the mid to distal descending colon, splenic flexure and descending colon. No free air is present. There is no abscess. There is no evidence for a bowel obstruction. The appendix is normal. Moderate plaque of the abdominal aorta is noted. Major branch vessels are patent. No ascites is present. There is no lymphadenopathy. No acute fracture or suspicious lesion is identified within visualized skeletal structures. IMPRESSION: Moderate wall thickening of the mid to distal transverse colon, splenic flexure and descending colon with pericolonic infiltration. This represents a colitis. Although nonspecific, this distribution raises the possibility of ischemic colitis. An infectious or inflammatory etiology could appear similar. No free air. No abscess. ACT 112: Negative or not required by law. Electronically signed by: John Mayes M.D. 03/27/2022 6:53 AM PG Care Time/CCT Total # of Minutes Spent Total Time Spent with Patient: Total time spent is greater than 50% in coordination of care (as documented) at patient's floor/unit and/or counseling patient: Coding Level of Care Code 63072 Initial Inpt Care Lvl 1 Diagnoses Colitis K52.9
[2022-03-27] MEDS ORDERED: PIPERACILLIN/TAZOBACTAM 4.5 GM/120 ML BAG IV ONE ×2 (08:31→10:00)
[2022-03-27] MEDS ORDERED: SODIUM CHLORIDE 0.9% 250 ML IV PRN (12:11)
[2022-03-27] MEDS ORDERED: ONDANSETRON INJ 2 MG/ML 2 ML VIAL IV PRN (12:11)
[2022-03-27] MEDS: MoRPHine SULFATE 2 MG/ML CARP IV PRN ×3 (12:22→23:15)
[2022-03-27] MEDS: LACTATED RINGER'S 1,000 ML IV SCH ×2 (12:26→23:15)
[2022-03-27] MEDS: PIPERACILLIN/TAZOBACTAM 3.375 GM in DEXTROSE 5% 100 ML IV SCH ×2 (15:20→20:32)
--- NOTE | 2022-03-27 17:17 | History & Physical Report ---
Date of Service March 27, 2022 Assessment & Plan (1) Colitis: Plan: Angeles Kruger is a 66-year-old female with a past medical history of CADASIL and hypothyroidism present in the ED for a three-day history of ongoing bloody diarrhea, intermittent N/V, and generalized abdominal pain. 1) Colitis She is currently NPO, IVF, and zosyn (3.375 mg IV) Admission and Anticipated Discharge Date Admission Date: March 27, 2022 History of Present Illness Chief Complaint: Bloody diarrhea Primary Care Provider: LIZETTE Nazario Angeles Kruger is a 66-year-old female with a past medical history of CADASIL and hypothyroidism present in the ED for a three-day history of ongoing bloody diarrhea, intermittent N/V, and generalized abdominal pain. She reports the first episode of abdominal pain and bloody stool occurred on Wednesday night; however, no course of action was taken The next morning, her suggested she take Pepto Bismol. This offered no relief. She stated later she had another bloody bowel movement and that abdominal pain preceded this instance. Over the course of next day or so, nausea and vomiting also occurred. On questioning what the emesis looked like (e.g., did it appear like coffee grounds) she endorsed eating beets and that's what she saw. Further questioning revealed that at this time, she felt generalized malaise not soley abdominal pain. On a pain scale, this pain was a 10/10. After administration of the morphine, she now reports the pain to be a 4/10. She states that her abdomen still feels diffusely tender. She states that she has not had an episode like this previously. Her last colonoscopy was >10 y/a. She underwent a abdominal/pelvic CT scan with contrast showed findings suggesting potential ischemic colitis or inflammatory/infectious colitis. EKG indicated normal sinus rhythm. CBC demonstrated evidence of high WBC and neutrophil counts. She given zosyn prophylactically at a dose of 3.375 mg IV. She is receiving morphine 2 mg q4h. She is receiving IV fluids. Allergies Allergy/AdvReac Type Severity Reaction Status Date / Time argatroban Allergy Severe Unknown Verified 03/27/22 09:50 dabigatran etexilate Allergy Severe Unknown Verified 03/27/22 09:50 [From Pradaxa] vancomycin Allergy Severe RASH Unverified 05/06/21 13:03 acetaminophen [From Vicodin] Allergy Unknown Unknown Verified 03/27/22 09:39 doxycycline Allergy Unknown RASH,VOMITT Unverified 05/06/21 13:03 ING erythromycin base Allergy Unknown rash Unverified 05/06/21 13:03 hydrocodone [From Vicodin] Allergy Unknown Unknown Verified 03/27/22 09:39 cat dander Allergy Unknown Verified 03/27/22 09:44 dog dander Allergy Unknown Verified 03/27/22 09:44 grass pollen Allergy Unknown Verified 03/27/22 09:44 horse dander Allergy Unknown Verified 03/27/22 09:44 tree nut Allergy Unknown Verified 03/27/22 09:44 apixaban AdvReac Severe Life-threatening Verified 03/27/22 09:56 ADR to ALL anticoagulants (Dx: CADASIL) edoxaban AdvReac Severe Life-threatening Verified 03/27/22 09:56 ADR to ALL anticoagulants (Dx: CADASIL) enoxaparin AdvReac Severe Life-threatening Verified 03/27/22 09:56 ADR to ALL anticoagulants (Dx: CADASIL) heparin AdvReac Severe Life-threatening Verified 03/27/22 09:56 ADR to ALL anticoagulants (Dx: CADASIL) rivaroxaban AdvReac Severe Life-threatening Verified 03/27/22 09:56 ADR to ALL anticoagulants (Dx: CADASIL) sodium citrate AdvReac Severe Life-threatening Unverified 03/27/22 09:54 ADR to ALL anticoagulants (Dx: CADASIL) warfarin AdvReac Severe Life-threatening Verified 03/27/22 09:56 ADR to ALL anticoagulants (Dx: CADASIL) naproxen AdvReac Unknown elevated BP Unverified 05/06/21 13:03 Dust Allergy Unknown Unknown Uncoded 03/27/22 09:39 Home Medications Medication Instructions Recorded Confirmed Type arginine (L-arginine) 500 mg 1 cap PO .Take 1 capsule twice 05/23/19 05/06/21 History capsule azelastine 137 mcg (0.1 %) nasal intranasal 05/23/19 05/06/21 History spray aerosol fluticasone propionate 220 inhalation .INHALE 2 PUFFS TWICE 05/23/19 05/06/21 History mcg/actuation HFA aerosol inhaler fluticasone propionate 50 intranasal .instill 2 sprays int 05/23/19 05/06/21 History mcg/actuation nasal spray,suspension multivitamin with minerals [Akorns PO 05/23/19 05/06/21 History Antioxidants] olopatadine 0.2 % eye drops ophthalmic (eye) 05/23/19 05/06/21 History thyroid (pork) 60 mg tablet mg PO .TAKE 1 TABLET DAILY. 05/23/19 05/06/21 History citalopram 20 mg tablet 30 mg PO DAILY 04/10/20 05/06/21 History lorazepam 1 mg tablet 1 mg PO DAILY PRN 04/10/20 05/06/21 History baclofen PO 10/08/20 05/06/21 History aspirin 81 mg tablet,delayed 81 mg PO DAILY #30 tabs 12/24/20 05/06/21 Rx release sndtxubzch-fmyrcjmnjobri-pehhoppu 1 tab PO BID PRN pain #30 tabs 11/26/21 Rx 50 mg-325 mg-40 mg tablet Past Med/Surg History Family History Father CADASIL (cerebral AD arteriopathy w infarcts and leukoencephalopathy) Mother Stroke Diabetes Breast cancer Aunt Breast cancer Social History Smoking Status: Never smoker Second Hand Exposure: No; Do You Dip or Chew Tobacco: No; Tobacco Cessation Education Requested by Patient: No Hx Alcohol Use: Yes Alcohol type: wine Hx Substance Use: Yes Last Used Substance: Days (ago) Last Used Substance Other:: yesterday Preferred Language: Rwandan Communication Ability: Effective Drama Teacher Required: No Beliefs That Will Affect Care: None Current Living Situation: Spouse Other Information That Helps Us Care for You: No Feels Safe at Home: Yes Safety Concerns: Feels Safe At This Time Assistive Devices: Glasses Results & Data Results & Data ([facility]) Vital Signs (Past 12 Hours) Vital Signs Pulse Pulse Resp BP BP Pulse Ox O2 Del Method 03/27/22 12:27 66 18 143/91 H 92 Room Air 03/27/22 12:15 66 18 143/91 H 92 Room Air 03/27/22 12:00 66 18 143/91 H 92 Room Air 03/27/22 12:00 66 18 143/91 H 92 Room Air 03/27/22 12:00 66 18 143/91 H 93 Room Air 03/27/22 10:00 66 18 136/78 93 Room Air 03/27/22 08:00 74 18 129/85 93 Room Air 03/27/22 06:30 78 20 145/74 H 93 Room Air 03/27/22 05:10 96 Room Air Code Status & VTE Plan VTE Prophylaxis Plan VTE Prophylaxis will be ordered: Yes Supervising Physician Co-Signing Physician Notes I personally examined the patient and verified all cobos points of history and exa m, discussed case, and agree with decision making with Swathi CURRY Several days of intermittent bouts of severe abdominal pain followed by bloody diarrhea with concomitant resolution of the pain followed by repeating cycle. This is still happening in the hospital, although pain medicines are helping some. Vitals noted, in general she is awake and alert laying in the room quietly but in no distress. HEENT normocephalic atraumatic mucous membranes moist. Breathing unlabored no accessory muscle use good effort. Skin shows no rashes no pallor or icterus. Abdomen is soft mildly distended at worst but probably nondistended, mild left sided abdominal tenderness without guarding rebound or rigidity, no peritoneal signs. Extremities show no cyanosis. Neuro without focal deficits. Colitismost likely ischemicpattern certainly fits. Screen for risks for vascular disease, review literature to see if there is anything with Cadasil that might also include a more of a systemic process, although I highly doubt this will be the case. IV antibiotics, n.p.o., pain control, fluids, supportive care. Appreciate surgical input. Discussed with GI and will consult for colonoscopy when she is doing well enough that it can be considered. DVT prophylaxispharmacologic contraindicated due to GI bleeding. Mechanical of dubious benefit. cadasil -appearing clinically stable at this time. Follow closely. HypothyroidHome meds on hold, right now probably will not be prolonged n.p.o. so I doubt we will need to use IV thyroid replacement. Otherwise as above
--- NOTE | 2022-03-27 17:45 | Billing Data ---
Date of Service March 27, 2022 Coding Level of Care Code 89713 Initial Inpt Care Lvl 3
[2022-03-28 00:19] LABS: Adenovirus F 40/41 PCR Not Detected (NotDetected); Astrovirus PCR Not Detected (NotDetected); Campylobacter PCR Not Detected (NotDetected); Clostridium diff Toxin A/B PCR Not Detected (NotDetected); Cryptosporidium PCR Not Detected (NotDetected); Cyclospora cayetanensis PCR Not Detected (NotDetected); Entamoeba histolytica PCR Not Detected (NotDetected); Enteroaggregative E.coli(EAEC) Not Detected (NotDetected); Enteropathogenic E.coli (EPEC) Not Detected (NotDetected); Enterotoxigenic E.coli (ETEC) Not Detected (NotDetected); Giardia lamblia PCR Not Detected (NotDetected); Norovirus GI/GII PCR Not Detected (NotDetected); Plesiomonas shigelloides PCR Not Detected (NotDetected); Rotavirus A PCR Not Detected (NotDetected); Salmonella PCR Not Detected (NotDetected); Sapovirus PCR Not Detected (NotDetected); Shiga-like Toxin E.coli (STEC) Not Detected (NotDetected); Shigella/Enteroinvasive E.coli Not Detected (NotDetected); Vibrio cholerae PCR Not Detected (NotDetected); Vibrio species PCR Not Detected (NotDetected); Yersinia enterocolitica PCR Not Detected (NotDetected)
[2022-03-28] MEDS: PIPERACILLIN/TAZOBACTAM 3.375 GM in DEXTROSE 5% 100 ML IV SCH ×3 (05:12→21:03)
--- NOTE | 2022-03-28 05:44 | Surgery Progress Note ---
Date of Service March 28, 2022 Assessment & Plan (1) Colitis: Plan: Patient has been admitted on the hospitalist service. We recommend proceeding as follows: Continue antibiotics in the form of Zosyn Continue IV fluid for hydration Okay for clear liquids Concern noted that patient may have ischemic colitis although this has not been ascertained. Therefore recommend GI consultation and consideration should be given to performing a colonoscopy as an outpatient once patient is recovered from the acute inflammation of her colon. Check a.m. labs when available His abdominal exam is benign at this time no need for urgent surgical intervention at the present time. Admission and Anticipated Discharge Date Admission Date: March 27, 2022 Supervising Physician Co-Signing Physician Notes Patient seen and examined, labs and imaging reviewed, agree with above. 66-year-old female admitted with colitis, likely ischemic in nature. Her discomfort has improved but she still having bloody bowel movements. On exam she is afebrile with stable vitals. Her abdomen is soft, minimally tender to palpation in the left side, improved from yesterday. No guarding or rebound. WBC stable, H&H down slightly, partially dilutional. Patient may have clear liquids, continue IV fluids and supportive care. GI consult pending. No surgical intervention planned at this time. Surgery will continue to follow, call with questions or concerns Subjective Patient is resting comfortably in bed. She notes abdominal pain that was present at time of admission has markedly improved. She denies any nausea or vomiting. She does note she is continuing to pass blood from her rectum. Physical Exam Gastrointestinal (Abdomen): Abdomen is soft, nonrigid, and nondistended. No rebound tenderness or guarding is noted. There is no pain with palpation at the time of my exam. Results & Data ([facility]) Vital Signs (Past 12 Hours) Vital Signs Temp Pulse Resp BP Pulse Ox O2 Del Method 03/27/22 22:51 37.5 C 76 18 144/64 H 91 Room Air 03/27/22 19:19 36.9 C 77 18 132/65 94 Room Air PG Care Time/CCT Total # of Minutes Spent Total Time Spent with Patient: Total time spent is greater than 50% in coordination of care (as documented) at patient's floor/unit and/or counseling patient: Coding Level of Care Code 55339 Subseq Hosp Care Lvl 1 Diagnoses Colitis K52.9
[2022-03-28 06:41] LABS: Basophils # (auto) 0.05 K/uL (0-0.2); Basophils % (auto) 0.4 %; Eosinophils # (auto) 0.14 K/uL (0-0.50); Eosinophils % (auto) 1.1 %; Hematocrit (blood only) 36.1 % (34.1-44.9); Hemoglobin 12.6 g/dl (12.0-16.0); Immature Granulocytes # (auto) 0.06 K/uL (0.00-0.02); Immature Granulocytes % (auto) 0.5 %; Lymphocytes # (auto) 1.36 K/uL (1.2-3.4); Lymphocytes % (auto) 10.3 %; Mean Corpuscular Hemoglobin 30.3 pg (25.0-34.0); Mean Corpuscular Hgb Conc 34.9 g/dL (32.0-36.0); Mean Corpuscular Volume 86.8 fL (80.0-100.0); Mean Platelet Volume 9.8 fL (9.4-12.3); Monocytes # (auto) 0.82 K/uL (0.24-0.82); Monocytes % (auto) 6.2 %; Neutrophils # (auto) 10.73 K/uL (1.4-6.5); Neutrophils % (auto) 81.5 %; Platelet Count 401 K/uL (130-400); RDW Coefficient of Variation 12.7 % (11.5-14.5); Red Blood Count 4.16 M/uL (3.93-5.22); White Blood Count 13.16 K/ul (4.8-10.8)
--- NOTE | 2022-03-28 07:51 | Hospitalist Progress Note ---
Date of Service March 28, 2022 Assessment & Plan (1) Colitis: (2) Hypothyroid: (3) CADASIL: Plan Patient is a 66-year-old female with a past medical history of CADASIL and hypothyroidism present in the ED for a three-day history of ongoing bloody diarrhea, intermittent N/V, and generalized abdominal pain. #Colitis -Surgery and GI consulted -Stool PCR GI vázquez negative, blood culture NGTD (24 hours) -CT ab showed: "Moderate wall thickening of the mid to distal transverse co starla, splenic flexure and descending colon with pericolonic infiltration. This represents a colitis. Although nonspecific, this distribution raises the possibility of ischemic colitis. An infectious or inflammatory etiology could appear similar. No free air. No abscess." -Hemoglobin 12.6 and stable at this time. Will trend AM labs. -Continue Zosyn, IV fluids for hydration. May advance to Clear liquids tomorrow pending what GI says. -Morphine prn for pain, Zofran prn for nausea -Highly suspicious that patient has ischemic colitis. Colonoscopy most likely should be performed outpatient but will wait to see what GI says. -No surgery indicated at this time. #Hypothyroid -Holding home meds. # CADASIL -Clinically stable at this time. Will continue to monitor Fluids: IV fluids Nutrition: NPO Code status: full code DVT ppx: no AC d/t possible GIB Dispo: med/surg Thank you for allowing me to participate in the care of your patient. -Dr. Amor Bess PGY1 Admission and Anticipated Discharge Date Admission Date: March 27, 2022 Supervising Physician Co-Signing Physician Notes I personally examined the patient and verified all cobos points of history and exam, discussed case, and agree with decision making with Dr Bess Abdominal pain doing better. No blood/no bowel movements now for several hours. Overall feeling improved. She wonders how much this could be related to her cadasil as she suspects that there is probably vasospasm outside of the brain, but it is a very ill understood entity. I discussed with her that I wondered the same, could not find anything in the literature, but am still suspiciousgiven that she might have ischemic colitis without really any known vascular disease or striking atherosclerotic risk factors. Vitals noted, in general she is awake and alert pleasant no distress. HEENT normocephalic atraumatic mucous membranes moist. Breathing unlabored no accessory muscle use good effort. Skin shows no rashes no pallor or icterus. Neuro without focal deficits. Colitisischemic versus infectiouseither way improving. Continue antibiotics fluids and supportive care. Likely advance diet tomorrow. Awaiting A1c, but given that she is not a smoker, no hypertension, without any vascular endpoints her lipids really are not that bad, if she does not have diabetes (which I doubt she does) I do have some degree of suspicion about systemic vasospasm if, in the end, her colitis turns out to be ischemic. Discussed that certainly there is no clear "textbook" answer for this, but if she turns out to have ischemic colitis something to protect against vasospasm such as amlodipine may be reasonable. colo as outpt in ~4wks. otherwise as above Subjective Patient was seen bedside this AM and states that she has pain in her "colon". She also states that she every BM she has had since Wednesday is just all blood. She states that it is bright red blood. States that she is getting a little bit better today but still complains of diffuse ab pain L>R. Review of Systems Review of Systems: Constitutional: denies fever, chills, + fatigue CV: denies chest pain, palpitations Resp: denies shortness of breath, cough GI: denies nausea, vomiting, constipations + abdominal pain, diarrhea : denies pain with urination, change in urinary frequency Neuro: denies new numbness, tingling, weakness Physical Exam Constitutional: WD/WN, vitals as above Eyes: PERRL, conjunctivae normal, anicteric sclerae ENMT: external ear and nose normal, oropharynx normal Neck: trachea midline, no thyromegaly Respiratory: normal respiratory effort, lungs clear to auscultation Cardiovascular: RRR, no murmur, no edema Gastrointestinal (Abdomen): Inspection/Auscultation: abdomen normal to inspection and normal bowel sounds Percussion/Palpation: + abdomen tender (L>R), abdomen soft and normal to percussion Musculoskeletal: no cyanosis or clubbing, extremities motor strength 5/5 Skin: no rashes, warm and dry Psychiatric: A+Ox3, euthymic affect Results & Data Results & Data ([facility]) Vital Signs (Past 12 Hours) Vital Signs Temp Pulse Resp BP Pulse Ox O2 Del Method 03/28/22 07:41 36.9 C 77 18 111/72 91 Room Air 03/27/22 22:51 37.5 C 76 18 144/64 H 91 Room Air Resident Activity Tracking Resident Involvement: Resident Care Provided Care Provided: Adult Hospital Medicine
[2022-03-28 07:58] LABS: BUN Creatinine Ratio 10.7 (10-20); Calcium 8.4 mg/dl (8.5-10.1); Creatinine Clr Calc Pharmacy 81.6 ml/min; Est GFR (African American) 111.8 ml/min; Est GFR (Non-African American) 96.5 ml/min; Potassium 3.7 mmol/L (3.5-5.1)
[2022-03-28] MEDS ORDERED: ALBUMIN HUMAN 5% 12.5 GM/250 ML VIAL IV ONE (08:18)
[2022-03-28] MEDS ORDERED: MoRPHine SULFATE 4 MG/ML 1 ML CARP\\VIAL IV PRN (09:03)
[2022-03-28] MEDS: LACTATED RINGER'S 1,000 ML IV SCH (11:43)
[2022-03-28] MEDS: MoRPHine SULFATE 2 MG/ML CARP IV PRN ×2 (11:45→19:35)
--- NOTE | 2022-03-28 15:08 | Gastrointestinal Consultation ---
Date of Consultation March 28, 2022 Assessment & Plan (1) Colitis: Plan acute colitis: infectious vs. inflammatory vs. ischemic, appears to be recurrent with several episodes since she was 17. improvign now on abx. recs: --continue abx for 7 days total, can switch to cipro/flagyl upon discharge --will need colonoscopy as an outpatient in 2-4 weeks, we will schedule --supportive care, IVFs --NPO today, can advance to low residue diet if continues to improve starting tomorrow morning. Thank you for allowing me to participate in the care of this patient History of Present Illness Attending Physician: Zaid Booker DO History of Present Illness 66 yo female here with colitis. She developed diarrhea/ vomiting and hematochezia recently and came to the ER. These episodes have been happenign to her annually since she was 17 but the hematochezia this time is new. CT A/P shows moderate colitis in left colon including splenic flexure. currently NPO and improving on abx and IVFs. labs reviewed, leukocytosis is noted. Allergies Allergy/AdvReac Type Severity Reaction Status Date / Time argatroban Allergy Severe Unknown Verified 03/27/22 09:50 dabigatran etexilate Allergy Severe Unknown Verified 03/27/22 09:50 [From Pradaxa] vancomycin Allergy Severe RASH Unverified 05/06/21 13:03 acetaminophen [From Vicodin] Allergy Unknown Unknown Verified 03/27/22 09:39 doxycycline Allergy Unknown RASH,VOMITT Unverified 05/06/21 13:03 ING erythromycin base Allergy Unknown rash Unverified 05/06/21 13:03 hydrocodone [From Vicodin] Allergy Unknown Unknown Verified 03/27/22 09:39 cat dander Allergy Unknown Verified 03/27/22 09:44 dog dander Allergy Unknown Verified 03/27/22 09:44 grass pollen Allergy Unknown Verified 03/27/22 09:44 horse dander Allergy Unknown Verified 03/27/22 09:44 tree nut Allergy Unknown Verified 03/27/22 09:44 apixaban AdvReac Severe Life-threatening Verified 03/27/22 09:56 ADR to ALL anticoagulants (Dx: CADASIL) edoxaban AdvReac Severe Life-threatening Verified 03/27/22 09:56 ADR to ALL anticoagulants (Dx: CADASIL) enoxaparin AdvReac Severe Life-threatening Verified 03/27/22 09:56 ADR to ALL anticoagulants (Dx: CADASIL) heparin AdvReac Severe Life-threatening Verified 03/27/22 09:56 ADR to ALL anticoagulants (Dx: CADASIL) rivaroxaban AdvReac Severe Life-threatening Verified 03/27/22 09:56 ADR to ALL anticoagulants (Dx: CADASIL) sodium citrate AdvReac Severe Life-threatening Unverified 03/27/22 09:54 ADR to ALL anticoagulants (Dx: CADASIL) warfarin AdvReac Severe Life-threatening Verified 03/27/22 09:56 ADR to ALL anticoagulants (Dx: CADASIL) naproxen AdvReac Unknown elevated BP Unverified 05/06/21 13:03 Dust Allergy Unknown Unknown Uncoded 03/27/22 09:39 Home Medications Medication Instructions Recorded Confirmed Type arginine (L-arginine) 500 mg 1 cap PO .Take 1 capsule twice 05/23/19 05/06/21 History capsule azelastine 137 mcg (0.1 %) nasal intranasal 05/23/19 05/06/21 History spray aerosol fluticasone propionate 220 inhalation .INHALE 2 PUFFS TWICE 05/23/19 05/06/21 History mcg/actuation HFA aerosol inhaler fluticasone propionate 50 intranasal .instill 2 sprays int 05/23/19 05/06/21 History mcg/actuation nasal spray,suspension multivitamin with minerals [Akorns PO 05/23/19 05/06/21 History Antioxidants] olopatadine 0.2 % eye drops ophthalmic (eye) 05/23/19 05/06/21 History thyroid (pork) 60 mg tablet mg PO .TAKE 1 TABLET DAILY. 05/23/19 05/06/21 History citalopram 20 mg tablet 30 mg PO DAILY 04/10/20 05/06/21 History lorazepam 1 mg tablet 1 mg PO DAILY PRN 04/10/20 05/06/21 History baclofen PO 10/08/20 05/06/21 History aspirin 81 mg tablet,delayed 81 mg PO DAILY #30 tabs 12/24/20 05/06/21 Rx release hhoxxxyecd-rffffpxgyscbr-tsxybvtj 1 tab PO BID PRN pain #30 tabs 11/26/21 Rx 50 mg-325 mg-40 mg tablet Patient History Family History Father CADASIL (cerebral AD arteriopathy w infarcts and leukoencephalopathy) Mother Stroke Diabetes Breast cancer Aunt Breast cancer Social History Smoking Status: Never smoker Second Hand Exposure: No; Hx Alcohol Use: Yes Alcohol type: wine Hx Substance Use: Yes Last Used Substance: Days (ago) Last Used Substance Other :: yesterday Preferred Language: Yoruba Communication Ability: Effective Escalator Mechanic Required: No Beliefs That Will Affect Care: None Current Living Situation: Spouse Feels Safe at Home: Yes Assistive Devices: Glasses Review of Systems Constitutional: no fever, no chills and no weight loss Eyes: as per Subjective / HPI Ear, Nose, Mouth, Throat: as per Subjective / HPI Respiratory: no dyspnea and no dyspnea on exertion Cardiovascular: no chest pain and no palpitations Gastrointestinal: as per Subjective / HPI Musculoskeletal: no joint pain and no swelling Integumentary: no rash and no lesions Neurologic: no numbness and no paresthesia Psychiatric: no depression and no anxiety Endocrine: no fatigue Hematologic / Lymphatic: no easy bleeding and no easy bruising Physical Exam Constitutional: WD/WN, vitals as above Eyes: EOM intact bilaterally Neck: normal visual inspection Respiratory: normal respiratory effort, lungs clear to auscultation Cardiovascular: RRR, no murmur, no edema Gastrointestinal (Abdomen): Inspection/Auscultation: abdomen normal to inspection; abdomen not distended Percussion/Palpation: + abdomen tender (mild LLQ) and abdomen soft; no hepatosplenomegaly Musculoskeletal: Extremities: no cyanosis Gait: normal gait Skin: no rashes, warm and dry Neurologic: moves all extremities Psychiatric: A+Ox3, euthymic affect Results & Data ([facility]) Vital Signs (Past 12 Hours) Vital Signs Temp Pulse Resp BP Pulse Ox O2 Del Method 03/28/22 07:41 36.9 C 77 18 111/72 91 Room Air PG Care Time/CCT Total # of Minutes Spent Total Time Spent with Patient: Total time spent is greater than 50% in coordination of care (as documented) at patient's floor/unit and/or counseling patient: Coding Level of Care Code 25018 Initial Inpt Care Lvl 3 Diagnoses Colitis K52.9
--- NOTE | 2022-03-28 18:17 | Billing Data ---
Date of Service March 28, 2022 Coding Level of Care Code 73202 Subseq Hosp Care Lvl 3
[2022-03-29] MEDS: LACTATED RINGER'S 1,000 ML IV SCH (00:19)
[2022-03-29] MEDS: PIPERACILLIN/TAZOBACTAM 3.375 GM in DEXTROSE 5% 100 ML IV SCH ×2 (05:16→12:57)
--- NOTE | 2022-03-29 05:26 | Surgery Progress Note ---
Date of Service March 29, 2022 Assessment & Plan (1) Colitis: Plan: Patient has been admitted on the hospitalist service. We recommend proceeding as follows: Continue antibiotics in the form of Zosyn while hospitalized Continue IV fluid for hydration until oral intake adequate Okay for clear liquids GI consultation notedcolitis could be infectious, inflammatory, or ischemic; recommendations for colonoscopy once recovered from acute event noted No need for acute surgical intervention Admission and Anticipated Discharge Date Admission Date: March 27, 2022 Supervising Physician Co-Signing Physician Notes Patient seen and examined, labs reviewed, agree with above. 66-year-old female admitted for colitis, believed to be ischemic in nature. She is tolerating liquids and she is having far less blood in her bowel movements and they are starting to firm up. On exam she is afebrile stable vitals. Her abdomen is soft, nontender, nondistended. WBC 14, but other labs unremarkable. We will advance to low fiber diet, may take home medications from surgery standpoint. Okay for discharge later today if tolerates diet. During the exam the patient expressed her frustration with the hospital and her care at [facility]. She has not been able to sleep well due to her roommate. She is frustrated that she is not currently taking the exact medication she takes at home. She did state that she would check her self out because she was so frustrated. Subjective Patient is resting comfortably in bed. She notes that her abdominal pain continues to improve as she has minimal pain this morning. She also notes she is passing less blood per rectum and is actually having bowel movements. She offers no additional complaints. Physical Exam Gastrointestinal (Abdomen): Abdomen is soft, nonrigid, and nondistended. There is no pain with palpation at the time of my exam. Results & Data ([facility]) Vital Signs (Past 12 Hours) Vital Signs Temp Pulse Resp BP Pulse Ox O2 Del Method 03/28/22 21:53 37 C 65 18 120/63 94 Room Air PG Care Time/CCT Total # of Minutes Spent Total Time Spent with Patient: Total time spent is greater than 50% in coordination of care (as documented) at patient's floor/unit and/or counseling patient: Coding Level of Care Code 64984 Subseq Hosp Care Lvl 1 Diagnoses Colitis K52.9
[2022-03-29 06:31] LABS: Basophils # (auto) 0.07 K/uL (0-0.2); Basophils % (auto) 0.5 %; Eosinophils # (auto) 0.13 K/uL (0-0.50); Eosinophils % (auto) 0.9 %; Hematocrit (blood only) 36.4 % (34.1-44.9); Hemoglobin 12.9 g/dl (12.0-16.0); Immature Granulocytes # (auto) 0.05 K/uL (0.00-0.02); Immature Granulocytes % (auto) 0.4 %; Lymphocytes # (auto) 1.42 K/uL (1.2-3.4); Lymphocytes % (auto) 10.1 %; Mean Corpuscular Hemoglobin 30.5 pg (25.0-34.0); Mean Corpuscular Hgb Conc 35.4 g/dL (32.0-36.0); Mean Corpuscular Volume 86.1 fL (80.0-100.0); Mean Platelet Volume 9.7 fL (9.4-12.3); Monocytes % (auto) 5.7 %; Neutrophils # (auto) 11.53 K/uL (1.4-6.5); Neutrophils % (auto) 82.4 %; Platelet Count 438 K/uL (130-400); RDW Coefficient of Variation 12.4 % (11.5-14.5); RDW Standard Deviation 38.9 fL (36.4-46.3); Red Blood Count 4.23 M/uL (3.93-5.22)
[2022-03-29 06:55] LABS: Calcium 8.8 mg/dl (8.5-10.1); Creatinine Clr Calc Pharmacy 91.4 ml/min; Est GFR (African American) 116.1 ml/min; Est GFR (Non-African American) 100.2 ml/min; Potassium 3.6 mmol/L (3.5-5.1)
--- NOTE | 2022-03-29 07:13 | Hospitalist Progress Note ---
Date of Service March 29, 2022 Assessment & Plan (1) Colitis: (2) Hypothyroid: (3) CADASIL: Plan Patient is a 66-year-old female with a past medical history of CADASIL and hypothyroidism present in the ED for a three-day history of ongoing bloody diarrhea, intermittent N/V, and generalized abdominal pain. #Colitis -Surgery and GI consulted -Stool PCR GI vázquez negative, blood culture NGTD (24 hours) -CT ab showed: "Moderate wall thickening of the mid to distal transverse co starla, splenic flexure and descending colon with pericolonic infiltration. This represents a colitis. Although nonspecific, this distribution raises the possibility of ischemic colitis. An infectious or inflammatory etiology could appear similar. No free air. No abscess." -Hemoglobin 12.6 and stable at this time. Will trend AM labs. -Continue Zosyn, IV fluids for hydration. May advance to Clear liquids tomorrow pending what GI says. -Morphine prn for pain, Zofran prn for nausea -Highly suspicious that patient has ischemic colitis. Colonoscopy most likely should be performed outpatient but will wait to see what GI says. -No surgery indicated at this time. #Hypothyroid -Holding home meds. # CADASIL -Clinically stable at this time. Will continue to monitor Fluids: IV fluids Nutrition: NPO Code status: full code DVT ppx: no AC d/t possible GIB Dispo: med/surg Thank you for allowing me to participate in the care of your patient. -Dr. Amor Bess PGY1 Admission and Anticipated Discharge Date Admission Date: March 27, 2022 Physical Exam Constitutional: WD/WN, vitals as above Eyes: PERRL, conjunctivae normal, anicteric sclerae ENMT: external ear and nose normal, oropharynx normal Neck: trachea midline, no thyromegaly Respiratory: normal respiratory effort, lungs clear to auscultation Cardiovascular: RRR, no murmur, no edema Gastrointestinal (Abdomen): Inspection/Auscultation: abdomen normal to inspection and normal bowel sounds Percussion/Palpation: + abdomen tender (L>R), abdomen soft and normal to percussion Musculoskeletal: no cyanosis or clubbing, extremities motor strength 5/5 Skin: no rashes, warm and dry Psychiatric: A+Ox3, euthymic affect Results & Data Results & Data ([place]) Vital Signs (Past 12 Hours) Vital Signs Temp Pulse Resp BP Pulse Ox O2 Del Method 03/28/22 21:53 37 C 65 18 120/63 94 Room Air
--- NOTE | 2022-03-29 13:49 | Discharge Summary ---
Date of Service March 29, 2022 Admission HPI Per Admitting Provider Angeles Kruger is a 66-year-old female with a past medical history of CADASIL and hypothyroidism present in the ED for a three-day history of ongoing bloody diarrhea, intermittent N/V, and generalized abdominal pain. She reports the first episode of abdominal pain and bloody stool occurred on Wednesday night; however, no course of action was taken The next morning, her suggested she take Pepto Bismol. This offered no relief. She stated later she had another bloody bowel movement and that abdominal pain preceded this instance. Over the course of next day or so, nausea and vomiting also occurred. On questioning what the emesis looked like (e.g., did it appear like coffee grounds) she endorsed eating beets and that's what she saw. Further questioning revealed that at this time, she felt generalized malaise not soley abdominal pain. On a pain scale, this pain was a 10/10. After administration of the morphine, she now reports the pain to be a 4/10. She states that her abdomen still feels diffusely tender. She states that she has not had an episode like this previously. Her last colonoscopy was >10 y/a. She underwent a abdominal/pelvic CT scan with contrast showed findings dumont ggesting potential ischemic colitis or inflammatory/infectious colitis. EKG indicated normal sinus rhythm. CBC demonstrated evidence of high WBC and neutrophil counts. She given zosyn prophylactically at a dose of 3.375 mg IV. She is receiving morphine 2 mg q4h. She is receiving IV fluids. Admission Exam Per Admitting Provider General: Alert HEENT: Normocephalic, trachea midline Eyes: Extraocular eye movement is intact, no scleral erythema Pulmonary: Clear to auscultation bilaterally, no wheezing Cardio: Regular rate and rhythm GI: Abdomen is soft, tenderness to palpation diffusely without guarding or rigidity, rectal examination performed with female RN at the bedside does not show any evidence of active/gross bleeding, small external hemorrhoid without active bleeding : No suprapubic tenderness MSK: No evidence of trauma or malformation of the extremities, no edema Skin: No evidence of rash Neuro: Alert, no focal deficits Psychiatric: Cooperative Principal Diagnosis Colitis Discharge Exam Constitutional: WD/WN, vitals as above Eyes: PERRL, conjunctivae normal, anicteric sclerae ENMT: external ear and nose normal, oropharynx normal Neck: trachea midline, no thyromegaly Respiratory: normal respiratory effort, lungs clear to auscultation Cardiovascular: RRR, no murmur, no edema Gastrointestinal (Abdomen): Inspection/Auscultation: abdomen normal to inspection and normal bowel sounds Percussion/Palpation: + abdomen tender (L>R), abdomen soft and normal to percussion Musculoskeletal: no cyanosis or clubbing, extremities motor strength 5/5 Skin: no rashes, warm and dry Psychiatric: A+Ox3, euthymic affect Discharge Data Allergies Allergy/AdvReac Type Severity Reaction Status Date / Time argatroban Allergy Severe Unknown Verified 03/27/22 09:50 dabigatran etexilate Allergy Severe Unknown Verified 03/27/22 09:50 [From Pradaxa] vancomycin Allergy Severe RASH Unverified 05/06/21 13:03 acetaminophen [From Vicodin] Allergy Unknown Unknown Verified 03/27/22 09:39 doxycycline Allergy Unknown RASH,VOMITT Unverified 05/06/21 13:03 ING erythromycin base Allergy Unknown rash Unverified 05/06/21 13:03 hydrocodone [From Vicodin] Allergy Unknown Unknown Verified 03/27/22 09:39 cat dander Allergy Unknown Verified 03/27/22 09:44 dog dander Allergy Unknown Verified 03/27/22 09:44 grass pollen Allergy Unknown Verified 03/27/22 09:44 horse dander Allergy Unknown Verified 03/27/22 09:44 tree nut Allergy Unknown Verified 03/27/22 09:44 apixaban AdvReac Severe Life-threatening Verified 03/27/22 09:56 ADR to ALL anticoagulants (Dx: CADASIL) edoxaban AdvReac Severe Life-threatening Verified 03/27/22 09:56 ADR to ALL anticoagulants (Dx: CADASIL) enoxaparin AdvReac Severe Life-threatening Verified 03/27/22 09:56 ADR to ALL anticoagulants (Dx: CADASIL) heparin AdvReac Severe Life-threatening Verified 03/27/22 09:56 ADR to ALL anticoagulants (Dx: CADASIL) rivaroxaban AdvReac Severe Life-threatening Verified 03/27/22 09:56 ADR to ALL anticoagulants (Dx: CADASIL) sodium citrate AdvReac Severe Life-threatening Unverified 03/27/22 09:54 ADR to ALL anticoagulants (Dx: CADASIL) warfarin AdvReac Severe Life-threatening Verified 03/27/22 09:56 ADR to ALL anticoagulants (Dx: CADASIL) naproxen AdvReac Unknown elevated BP Unverified 05/06/21 13:03 Dust Allergy Unknown Unknown Uncoded 03/27/22 09:39 Consultations 03/27/22 08:10 ED Decision to Admit Stat 03/28/22 07:45 Consult Gastroenterology Routine Ordered Studies 03/27/22 04:59 CT abd pelvis IV con only Stat Hospital Course (1) Colitis: (2) Hypothyroid: (3) CADASIL: Plan Patient is a 66-year-old female with a past medical history of CADASIL and hypothyroidism present in the ED for a three-day history of ongoing bloody diarrhea, intermittent N/V, and generalized abdominal pain. #Colitis -Surgery and GI consulted -Stool PCR GI vázquez negative, blood culture NGTD (48 hours) at time of discharge. -CT ab showed: "Moderate wall thickening of the mid to distal transverse colon, splenic flexure and descending colon with pericolonic infiltration. This represents a colitis. Although nonspecific, this distribution raises the possibility of ischemic colitis. An infectious or inflammatory etiology could appear similar. No free air. No abscess." -Hemoglobin 12.9 and stable at time of discharge. -Advanced diet. Switch Zosyn to metronidazole and cipro per GI's recommendation at time of discharge. Prescriptions to her pharmacy was sent for the patient. She is to do a 7 day course of antibiotics. She has 5 days remaining at time of discharge. -Highly suspicious that patient has ischemic colitis. Will have colonoscopy in 2-4 weeks with GI. Scheduled at time of discharge. #Hypothyroid -Continued home meds. # CADASIL -Clinically stable during this admission. Patient should f/u with per PCP within a week and to f/u for her colonoscopy in 2-4 weeks. Total Time Total Time Spent Total Time Spent (In Minutes): <30 Total Time Includes: Examination of the Patient, Discharge Planning and Medication Reconciliation Discharge Plan Discharge Items Patient Disposition: Home - Self-Care Reason For Visit: GI BLEEDING Discharge Diagnosis: Colitis Activity: Resume your previous activity Non-emergency contact: Primary Care Provider and Nutrition Representative Call non-emergency contact if: your symptoms worsen, your pain is concerning for you and your temperature is above 101.5 Follow-up/Referrals: Edith Pantoja CRNP [Primary Care Provider] - Diet: Low Fiber Addtl Attending Provider Instructions: You were admitted to the hospital for Colitis. You were treated with antibiotics for your colitis, morphine for pain, and Zofran for nausea. Your Colitis is suspicious for a ischemic process. You will have a colonoscopy in 2-4 weeks to assess this issue. A discharge summary will be sent to your primary care physician to ensure continuity of care. Please bring this discharge summary with you to your next office appointment so that your provider can review it at that time. Follow-up appointments: * Make a follow-up appointment with your PCP within the next week. * You are being scheduled for a colonoscopy in 2-4 weeks with the [facility]. Office number is [phone] * Keep all your follow-up appointments as already scheduled. If you cannot make an appointment, notify your provider. Medications: Your medication list has been reviewed and reconciled upon discharge to ensure accuracy and continuity of care. An updated list of all your medications is included with your hospital discharge paperwork. Please review this list closely, and make note of any changes. * We sent a new medication called Ciprofloxacin to your pharmacy. Take Ciprofloxacin (500mg) one tablet twice a day for 5 days. * We sent a new medication called Metronidazole to your pharmacy. Take Metronidazole (500mg) one tablet four times a day for 5 days * If you have any issues filling these prescriptions, please call [phone] and ask to leave a message for Dr. Bess. Take your medications as instructed; do not skip a dose of your medicines. Make sure all of your doctors know every medicine you are taking (including ivly-btb-tpdrkuz medicines, vitamins, and supplements). Call your primary care provider before taking any new medicines (including over- the-counter medicines, vitamins, and supplements), because some of these may interact with your current medications, or may make your symptoms worse. Tell your primary care provider if you cannot afford your medications. CONTACT YOUR PRIMARY CARE PROVIDER if you experience any of the following: You pain is worsening. You have blood in your stool. Difficulty following your treatment plan, or difficulty taking medications CALL 911 OR GO TO THE EMERGENCY DEPARTMENT if you experience any of the following: Sudden, severe abdominal pain or nausea/vomiting Severe chest pain, or chest pain that radiates (moves) to your jaw or arm Sudden, severe shortness of breath or difficulty breathing Thank you for allowing us to participate in your care. Pending Studies at Discharge: No Stand-Alone Forms: [facility], Smoking Cessation Medications and DC Order Prescriptions: New ciprofloxacin HCl [Cipro] 500 mg tablet 500 mg PO BID 5 Days Qty: 10 0RF metronidazole 500 mg tablet 500 mg PO QID 5 Days Qty: 20 0RF Continued aspirin 81 mg tablet,delayed release (DR/EC) 81 mg PO DAILY Qty: 30 2RF yckachluuj-nepheqegrsbsh-bmdp 50-325-40 mg tablet 1 tab PO BID PRN (Reason: pain) Qty: 30 1RF arginine (L-arginine) 500 mg capsule 1 cap PO .Take 1 capsule twice thyroid (pork) 60 mg tablet PO .TAKE 1 TABLET DAILY. olopatadine 0.2 % drops OP fluticasone propionate 220 mcg/actuation HFA aerosol inhaler INH .INHALE 2 PUFFS TWICE azelastine 137 mcg (0.1 %) aerosol,spray INTNAS fluticasone propionate 50 mcg/actuation spray,suspension INTNAS .instill 2 sprays int multivitamin with minerals PO lorazepam 1 mg tablet 1 mg PO DAILY PRN citalopram 20 mg tablet 30 mg PO DAILY baclofen PO Discharge Orders: Discharge Order (Routine); Ordered 03/29/22 Ordered By: Amor Atwood/Other Patient Handouts: Understanding Colitis Admission Data Admit Date/Time: 03/27/22 08:19 Attending Provider: Zaid Booker Admit Provider: Zaid Booker Primary Care Provider: Edith Pantoja Other Providers: Zaid Booker ; Anthony Amaro ; Vivek Rogers ; Licha Lai ; Yolanda Elliott ; Rylie Garner ; Indiana Silva ; Jordy Hastings ; Sarah Ochoa ; Amena Pandey ; Tian Miranda ; Jason Kwok ; Fabian Martinez ; Eldon Jose ; Aston Levine ; Cain Cervantes ; Damaris Ware ; Janet Allan ; Opal Oliveros ; Jany Moscoso ; Donny Lara ; Markus Kingsley ; Yair Hunt ; Bryan Jimenez ; Joslyn Ramon ; Nadia Reza Jr Other Interventions: Discharge Summary Assessment (RN) Last Done: 03/29/22 14:03 Supervising Physician Co-Signing Physician Notes I personally examined the patient and verified all cobos points of history and exam, discussed case, and agree with decision making with Dr Maria Alejandra delgado pain doing much better eating liquids doesn't want to advance diet yet wants to take at slow at home and feels like she'll be fine at home. OK w PO abx. Vitals noted, in general she is awake and alert pleasant no distress. HEENT normocephalic atraumatic mucous membranes moist. Breathing unlabored no accessory muscle use good effort. Skin shows no rashes no pallor or icterus. Neuro without focal deficits. Colitisischemic versus infectiouseither way improving. Continue antibiotics fluids and supportive care. Likely advance diet tomorrow. Awaiting A1c, but given that she is not a smoker, no hypertension, without any vascular endpoints her lipids really are not that bad, if she does not have diabetes (which I doubt she does) I do have some degree of suspicion about systemic vasospasm if, in the end, her colitis turns out to be ischemic. Discussed that certainly there is no clear "textbook" answer for this, but if she turns out to have ischemic colitis something to protect against vasospasm such as amlodipine may be reasonable. colo as outpt in ~4wks. stable for home on PO abx otherwise as above Resident Activity Tracking Resident Involvement: Resident Care Provided Care Provided: Adult Hospital Medicine
--- NOTE | 2022-03-29 19:25 | Billing Data ---
Date of Service March 29, 2022 Coding Level of Care Code D/C DAY MANAGEMENT <30 MINS
[2022-03-30 07:50] LABS: Estimated Average Glucose 117 mg/dl; Hemoglobin A1C 5.7 % (4.5-5.6)
== END 2022-03-29 15:09 | disposition home or self-care (01) | DRG 392 ==
LOC: ED 04:38 → EDINP 08:19 → 3N 12:00

== ENCOUNTER 2022-07-28 21:56 | Observation (INO) ==
[2022-07-28 22:55] LABS: Hematocrit (blood only) 42.7 % (37.0-47.0); Hemoglobin 14.7 g/dl (12.0-16.0); Mean Corpuscular Hemoglobin 29.8 pg (25.0-34.0); Mean Corpuscular Hgb Conc 34.4 g/dL (32.0-36.0); Mean Corpuscular Volume 86.4 fL (80.0-100.0); Mean Platelet Volume 9.8 fL (9.4-12.4); Platelet Count 491 K/uL (130-400); RDW Coefficient of Variation 13.2 % (11.5-14.5); RDW Standard Deviation 41.3 fL (36.4-46.3); Red Blood Count 4.94 M/uL (4.20-5.40); White Blood Count 17.18 K/ul (4.8-10.8)
[2022-07-28 23:12] LABS: Albumin Globulin Ratio 1.6 (0.9-2); Albumin Level 4.5 gm/dl (3.4-5.0); BUN Creatinine Ratio 21.3 (10-20); Bilirubin,Total 0.4 mg/dl (0.2-1.0); Calcium 10.2 mg/dl (8.5-10.1); Creatinine Clr Calc Pharmacy 71.3 ml/min; Est GFR (Non-African American) 93.1 ml/min; Globulin 2.9 gm/dl (2.5-4.0); Total Protein 7.4 gm/dl (6.0-8.3)
[2022-07-28] MEDS ORDERED: OPTIRAY 350 100ml IV ONE (23:22)
[2022-07-28 23:32] LABS: INR 1.1 (0.9-1.1); Partial Thromboplastin Time 28.3 Seconds (21.0-31.0); Prothrombin Time 11.4 Seconds (9.0-12.0)
[2022-07-29] MEDS ORDERED: SODIUM CHLORIDE 0.9% 1000ML 1,000 ML IV ONE (00:27)
--- NOTE | 2022-07-29 00:30 | Emergency Department Note ---
History of Present Illness General Chief complaint: Rectal Bleed Stated complaint: BLEEDING FROM ANUS Time Seen by Provider: 07/28/22 22:56 History of Present Illness Maximum Pain Intensity: 4 67-year-old female presents emergency department sudden onset of rectal bleeding and vomiting that started at 6 PM this evening. Patient states diffuse crampy abdominal pain with bright red blood per rectum. Patient had a prior admission on 7 patient with ischemic colitis. Patient is not on blood thinners. Patient denies fever or anorexia. There are no other mitigating or alleviating factors Home Medications Medication Instructions Recorded Confirmed Type arginine (L-arginine) 500 mg 1 cap PO BID 05/23/19 07/29/22 History capsule azelastine 137 mcg (0.1 %) nasal 1 mcg intranasal DIRECTED PRN 05/23/19 07/29/22 History spray aerosol Congestion fluticasone propionate 220 2 inh inhalation BID PRN Wheezing 05/23/19 07/29/22 History mcg/actuation HFA aerosol inhaler fluticasone propionate 50 2 spray intranasal DAILY 05/23/19 07/29/22 History mcg/actuation nasal spray,suspension thyroid (pork) 60 mg tablet 60 mg PO HS 05/23/19 07/29/22 History citalopram 20 mg tablet 30 mg PO HS 04/10/20 07/29/22 History lorazepam 1 mg tablet 1 mg PO HS 04/10/20 07/29/22 History lgsgsiqebl-kftxeiuewffcd-etxtnqyd 1 tab PO BID PRN pain #30 tabs 11/26/21 07/29/22 Rx 50 mg-325 mg-40 mg tablet Medical Marijuana 1 dose PO DIRECTED PRN Pain 05/08/22 07/29/22 History aspirin 81 mg tablet,delayed 81 mg PO QAM 05/08/22 07/29/22 History release baclofen 5 mg tablet 5 mg PO BID PRN Spasms 05/08/22 07/29/22 History gabapentin 300 mg capsule 300 mg PO TID 07/29/22 07/29/22 History Allergies Allergy/AdvReac Type Severity Reaction Status Date / Time argatroban Allergy Severe Unknown Verified 07/29/22 00:11 dabigatran etexilate Allergy Severe Unknown Verified 07/29/22 00:11 [From Pradaxa] vancomycin Allergy Severe RASH Verified 07/29/22 00:11 acetaminophen [From Vicodin] Allergy Unknown Unknown Verified 07/29/22 00:11 cat dander Allergy Unknown Unknown Verified 07/29/22 00:11 dog dander Allergy Unknown Unknown Verified 07/29/22 00:11 doxycycline Allergy Unknown RASH,VOMITT Verified 07/29/22 00:11 ING erythromycin base Allergy Unknown rash Verified 07/29/22 00:11 grass pollen Allergy Unknown Unknown Verified 07/29/22 00:11 horse dander Allergy Unknown Unknown Verified 07/29/22 00:11 hydrocodone [From Vicodin] Allergy Unknown Unknown Verified 07/29/22 00:11 tree nut Allergy Unknown Unknown Verified 07/29/22 00:11 apixaban AdvReac Severe Life-threatening Verified 07/29/22 00:11 ADR to ALL anticoagulants (Dx: CADASIL) edoxaban AdvReac Severe Life-threatening Verified 07/29/22 00:11 ADR to ALL anticoagulants (Dx: CADASIL) enoxaparin AdvReac Severe Life-threatening Verified 07/29/22 00:11 ADR to ALL anticoagulants (Dx: CADASIL) heparin AdvReac Severe Life-threatening Verified 07/29/22 00:11 ADR to ALL anticoagulants (Dx: CADASIL) rivaroxaban AdvReac Severe Life-threatening Verified 07/29/22 00:11 ADR to ALL anticoagulants (Dx: CADASIL) sodium citrate AdvReac Severe Life-threatening Verified 07/29/22 00:11 ADR to ALL anticoagulants (Dx: CADASIL) warfarin AdvReac Severe Life-threatening Verified 07/29/22 00:11 ADR to ALL anticoagulants (Dx: CADASIL) naproxen AdvReac Intermediate elevated BP Verified 07/29/22 00:11 Dust Allergy Unknown Unknown Uncoded 07/29/22 00:11 Past Med/Surg History Medical History Asthma well controlled per pt CADASIL Chronic cerebral ischemia Classic migraine with aura Colitis resolved per pt Depression with anxiety GERD (gastroesophageal reflux disease) no meds Hyperlipidemia borderline Hypothyroidism Transient ischemic attack (TIA) several due to CADASIL dx > per pt last one approx December 2021 > right leg weakness > follows with Dr. Chairez Surgical History History of colonoscopy History of esophagogastroduodenoscopy (EGD) History of tonsillectomy History of tooth extraction [place] teeth extracted Family History Father CADASIL (cerebral AD arteriopathy w infarcts and leukoencephalopathy) Mother Stroke Diabetes Breast cancer Aunt Breast cancer Social History Smoking Status: Never smoker Second Hand Exposure: No; Hx Alcohol Use: Yes Alcohol type: wine Hx Substance Use: Yes Last Used Substance: Days (ago) Last Used Substance Ot her:: yesterday Substance Use Type Other:: medical card > daily use Preferred Language: Libyan Communication Ability: Effective Supervisor Reclamation Required: No Beliefs That Will Affect Care: None Current Living Situation: Spouse current occupational status: retired Feels Safe at Home: Yes caffeine: Yes (coffee and tea ) Dental Care, Regularly: Yes Physical Activity Frequency: Does not Exercise Seatbelt Use: always Sunscreen Use: No Assistive Devices: Cane and Glasses Review of Systems A total of 10 systems reviewed and were otherwise negative Gastrointestinal: + abdominal pain and + blood in stools Physical Exam Vital Signs Vital Signs - 24 hr 07/28/22 21:59 Temperature 36.5 C Temperature Source Temporal Artery Scan Pulse Rate 81 Respiratory Rate 16 Blood Pressure 153/74 H Blood Pressure Mean 100 Pulse Oximetry 95 Oxygen Delivery Method Room Air Sepsis Recent Fever Within 48 Hours No Sepsis New/Unexplained Change in Mental Status No Sepsis Action Taken by Nursing No Action Required GENERAL: Patient is awake alert in no acute distress patient is resting comfortably and showing no signs of anxiety EYES: The conjunctivae are clear. The pupils are round and reactive. EARS, NOSE, MOUTH AND THROAT: The nose is without any evidence of any deformity. Mucous membranes are moist. Tongue is midline. NECK: The neck is nontender and supple. RESPIRATORY: Normal respiratory effort is noted there is no evidence of wheezing rhonchi or rales CARDIOVASCULAR: Regular rate and rhythm noted there no murmurs rubs or gallops normal S1 normal S2. GASTROINTESTINAL: The abdomen is soft. Abdomen is nontender. There is no rebound rigidity or guarding PELVIS: The Pelvis is stable. No tenderness to palpation is noted. BACK: No midline tenderness or or step-off noted range of motion in flexion extension as well as rotation no signs of muscle spasm noted MUSCULOSKELETAL/EXTREMITIES: There is no evidence of gross deformity full range of motion is noted in the hips and shoulders. SKIN: There is no obvious evidence of any rash. There are no petechiae, pallor or cyanosis noted. NEUROLOGIC: Patient is awake alert and oriented x3 strength is symmetric Course Reevaluation(s) Reevaluation #1: Patient is resting in no distress on repeat examination, the case was discussed with the [facility] for admission Time: 02:04 Consultations Consultation #1: Case was discussed with the [facility] for admission for rule out ischemic colitis Time: 01:00 Administered Medications Discontinued Medications Ioversol (Optiray 350 100ml) 83 ml IV ONCE ONE Stop: 07/28/22 23:23 Last Admin: 07/28/22 23:24 Dose: 83 ml Documented By: ANTONIO Critical Care Time Critical Care Time: Yes Total Critical Care Time: 35 I have personally spent greater than 35 minutes of critical care time in the direct management of this patient. This includes bedside care, interpretation of diagnostic studies, and testing, discussion with consultants, patient, and family members, and other required patient management activities. These minutes are in excess of all separately billable procedures. Medical Decision Making Medical Records Attestation: I reviewed the patient's medical records. Home Medications Current Medication List: was personally reviewed by me Laboratory Data Attestation: I reviewed the patient's lab results. Patient has an elevated white blood cell count 07/28/22 22:12 07/28/22 22:12 Lab Results 07/28/22 07/28/22 07/28/22 Range/Units 22:12 22:12 22:12 WBC 17.18 H (4.8-10.8) K/ul RBC 4.94 (4.20-5.40) M/uL Hgb 14.7 (12.0-16.0) g/dl Hct 42.7 (37.0-47.0) % MCV 86.4 (80.0-100.0) fL MCH 29.8 (25.0-34.0) pg MCHC 34.4 (32.0-36.0) g/dL RDW Std Deviation 41.3 (36.4-46.3) fL RDW Coeff of Kelly 13.2 (11.5-14.5) % Plt Count 491 H (130-400) K/uL MPV 9.8 (9.4-12.4) fL PT 11.4 (9.0-12.0) Seconds INR 1.1 (0.9-1.1) APTT 28.3 (21.0-31.0) Seconds PTT Ratio 1.0 Sodium 135 L (136-145) mmol/L Potassium 4.0 (3.5-5.1) mmol/L Chloride 102 (98-107) mmol/L Carbon Dioxide 25 (21-32) mmol/L Anion Gap 8 (3-11) BUN 13 (6-23) mg/dl Creatinine 0.61 (0.6-1.2) mg/dl Est Cr Clr Drug Dosing 71.3 ml/min Est GFR ( Amer) 108.0 ml/min Est GFR (Non-Af Amer) 93.1 ml/min BUN/Creatinine Ratio 21.3 H (10-20) Glucose 113 H (70-99(Fasting)) mg/dl Lactate (0.4-2.0) mmol/L Calcium 10.2 H (8.5-10.1) mg/dl Total Bilirubin 0.4 (0.2-1.0) mg/dl AST 22 (13-39) U/L ALT 15 (7-52) U/L Alkaline Phosphatase 88 (34-104) U/L Total Protein 7.4 (6.0-8.3) gm/dl Albumin 4.5 (3.4-5.0) gm/dl Globulin 2.9 (2.5-4.0) gm/dl Albumin/Globulin Ratio 1.6 (0.9-2) 07/28/22 Range/Units 23:59 WBC (4.8-10.8) K/ul RBC (4.20-5.40) M/uL Hgb (12.0-16.0) g/dl Hct (37.0-47.0) % MCV (80.0-100.0) fL MCH (25.0-34.0) pg MCHC (32.0-36.0) g/dL RDW Std Deviation (36.4-46.3) fL RDW Coeff of Kelly (11.5-14.5) % Plt Count (130-400) K/uL MPV (9.4-12.4) fL PT (9.0-12.0) Seconds INR (0.9-1.1) APTT (21.0-31.0) Seconds PTT Ratio Sodium (136-145) mmol/L Potassium (3.5-5.1) mmol/L Chloride (98-107) mmol/L Carbon Dioxide (21-32) mmol/L Anion Gap (3-11) BUN (6-23) mg/dl Creatinine (0.6-1.2) mg/dl Est Cr Clr Drug Dosing ml/min Est GFR ( Amer) ml/min Est GFR (Non-Af Amer) ml/min BUN/Creatinine Ratio (10-20) Glucose (70-99(Fasting)) mg/dl Lactate 1.0 (0.4-2.0) mmol/L Calcium (8.5-10.1) mg/dl Total Bilirubin (0.2-1.0) mg/dl AST (13-39) U/L ALT (7-52) U/L Alkaline Phosphatase (34-104) U/L Total Protein (6.0-8.3) gm/dl Albumin (3.4-5.0) gm/dl Globulin (2.5-4.0) gm/dl Albumin/Globulin Ratio (0.9-2) Imaging Data Attestation: I personally reviewed and interpreted this imaging study as follows: My Impression: CT reviewed by me and appreciate the stat radiology interpretation Radiologist's Impression: Preliminary Findings Only See Final Report For Complete Findings CT ABDOMEN & PELVIS With Contrast: Comparison is made to prior study dated 03/27/2022. No acute findings in the abdomen or pelvis. No evidence of bowel obstruction. There is diverticulosis without diverticulitis. No urinary tract calculus or obstruction. No abnormal fluid or regional inflammatory reaction. Radiologist: Diomedes Delcid MD ECG Data Attestation: I personally reviewed and interpreted this ECG as follows: MDM Narrative Medical decision making differential diagnosis includes lower GI bleeding, diverticulitis, colitis, gastroenteritis, ischemic bowel, metabolic derangement, dehydration, electrolyte abnormality Plan is to check labs, CT External medical records were reviewed by me Nursing notes were reviewed by me and appreciated Patient has a prior history of ischemic colitis and states this presentation is very similar Patient will be admitted for colitis with rectal bleeding Patient is at high risk for ischemia and sepsis due to ischemia with increased morbidity and mortality, therefore the patient will be admitted for further treatment Impression & Plan Colitis Discharge Plan Visit Data Chief Complaint: Rectal Bleed Stated Complaint: BLEEDING FROM ANUS ED Provider: Devonte Mark Discharge Problem: Colitis Patient Disposition: Admitted As Inpatient Forms Stand Alone Forms: [facility] Prescriptions Prescriptions: No Action nyijkcmfrf-uwaahxkeqhpib-pqlh 50-325-40 mg tablet 1 tab PO BID PRN (Reason: pain) Qty: 30 1RF arginine (L-arginine) 500 mg capsule 1 cap PO BID thyroid (pork) 60 mg tablet 60 mg PO HS fluticasone propionate 220 mcg/actuation HFA aerosol inhaler 2 inh INH BID PRN (Reason: Wheezing) azelastine 137 mcg (0.1 %) aerosol,spray 1 mcg INTNAS DIRECTED PRN (Reason: Congestion) fluticasone propionate 50 mcg/actuation spray,suspension 2 spray INTNAS DAILY lorazepam 1 mg tablet 1 mg PO HS citalopram 20 mg tablet 30 mg PO HS baclofen 5 mg Tablet 5 mg PO BID PRN (Reason: Spasms) aspirin 81 mg tablet,delayed release (DR/EC) 81 mg PO QAM Medical Marijuana 1 dose PO DIRECTED PRN (Reason: Pain) gabapentin 300 mg capsule 300 mg PO TID Referrals Referrals: Ese Reeder MD [Primary Care Provider] -
--- NOTE | 2022-07-29 01:36 | History & Physical Report ---
Date of Service July 29, 2022 Assessment & Plan (1) Blood in stool: Plan: Angeles is a 67 year old female w/ PmHx CADASIL, hypothyroidism, depression/anxiety, asthma admitted for blood in stool. Blood in stool: -Admitted 02/2022 for blood in stool w/ possible ischemic colitis on imaging. -WBC 17.18, hemoglobin 14.7, platelets 491. -CT A&P statrad w/o acute findings. -Pathology from biopsy of left colon from 05/14 w/ single small focus of active colitis. -Will obtain mesenteric duplex for possible ischemic colitis. -Placed on famotidine 40mg qAM. -NPO, IVF LR at 80ml/hr. -GI consulted, will appreciate recs. -Continue to monitor Hgb. Leukocytosis: -WBC 17.18 on admission. -May be recurrence of colitis in early stages. -PCR stool panel vázquez negative on previous admission including C diff toxin. -Continue to monitor w/ AM CBC. Thrombocytosis: -Platelets 491 on admission. -May be reactive to possible colitis. -Continue to trend. CADASIL: -Noted, holding ASA 81mg in face of potential bleed. Can continue home Fioricet for headaches. Hypothyroid: -Continue home thyroid (pork) 60mg Asthma: -No active respiratory issues. Continue to monitor, will hold home medications for now. Depression/anxiety: -Continue home citalopram. DVT Prophylaxis: SCDs F/E/N/GI: NPO, LR @ 80ml/hr Code status: DNR/DNI Dispo: Med/tele (2) Asthma: (3) CADASIL: (4) Hypothyroid: (5) Depression with anxiety: (6) Classic migraine with aura: History of Present Illness Chief Complaint: Blood in the stool Primary Care Provider: Ese Reeder MD Angeles is a 67 year old female w/ PmH CADASIL, hypothyroidism, depression/anxiety, asthma presenting to the ED with blood in stool x1 episode. Patient was previously admitted to the hospital in late February to March for 3 days of bloody diarrhea w/ N/V and generalized abdominal pain. At that time her stool PCR was vázquez negative, blood cultures negative, CT A&P showed mid to distal transverse colon colitis, she was put on Zosyn then transitioned to home regimen of Cipro and Flagyl. She had a colonoscopy in April which showed normal colon, 2 3-4mm polyps benign. She states that she felt good since discharge however around 6PM on 07/28 she had a bloody bowel movement along with the same cramping and bloating abdominal pain feeling as well as nausea and one episode of non-bloody emesis. She has had less of an appetite for the past few days and says that she's been eating things like cashews and small amounts of food. She denies any shortness of breath, chest pain, current nausea, fevers, chills, headaches. She says her PCP used to be Greta Pantoja however she retired and she recently went to a new PCP within the past few days. She says the takes aspirin 81mg once a week and the last dose was 2 days ago. She denies any smoking or tobacco use, occasional alcohol use. In the ED her WBC was elevated at 17.18, Hgb 14.7, platelets elevated at 491, PT/INR, electrolytes, kidney function, liver enzymes WNL. CT A&P stat rad reads no acute findings in A&P, diverticulosis w/o diverticulitis. Allergies Allergy/AdvReac Type Severity Reaction Status Date / Time argatroban Allergy Severe Unknown Verified 07/30/22 12:24 dabigatran etexilate Allergy Severe Unknown Verified 07/30/22 12:24 [From Pradaxa] vancomycin Allergy Severe RASH Verified 07/30/22 12:24 acetaminophen [From Vicodin] Allergy Unknown Unknown Verified 07/30/22 12:24 cat dander Allergy Unknown Unknown Verified 07/30/22 12:24 dog dander Allergy Unknown Unknown Verified 07/30/22 12:24 doxycycline Allergy Unknown RASH,VOMITT Verified 07/30/22 12:24 ING erythromycin base Allergy Unknown rash Verified 07/30/22 12:24 grass pollen Allergy Unknown Unknown Verified 07/30/22 12:24 horse dander Allergy Unknown Unknown Verified 07/30/22 12:24 hydrocodone [From Vicodin] Allergy Unknown Unknown Verified 07/30/22 12:24 tree nut Allergy Unknown Unknown Verified 07/30/22 12:24 apixaban AdvReac Severe Life-threatening Verified 07/30/22 12:24 ADR to ALL anticoagulants (Dx: CADASIL) edoxaban AdvReac Severe Life-threatening Verified 07/30/22 12:24 ADR to ALL anticoagulants (Dx: CADASIL) enoxaparin AdvReac Severe Life-threatening Verified 07/30/22 12:24 ADR to ALL anticoagulants (Dx: CADASIL) heparin AdvReac Severe Life-threatening Verified 07/30/22 12:24 ADR to ALL anticoagulants (Dx: CADASIL) rivaroxaban AdvReac Severe Life-threatening Verified 07/30/22 12:24 ADR to ALL anticoagulants (Dx: CADASIL) sodium citrate AdvReac Severe Life-threatening Verified 07/30/22 12:24 ADR to ALL anticoagulants (Dx: CADASIL) warfarin AdvReac Severe Life-threatening Verified 07/30/22 12:24 ADR to ALL anticoagulants (Dx: CADASIL) naproxen AdvReac Intermediate elevated BP Verified 07/30/22 12:24 Dust Allergy Unknown Unknown Uncoded 07/30/22 12:24 Home Medications Medication Instructions Recorded Confirmed Type arginine (L-arginine) 500 mg 1 cap PO BID 05/23/19 07/30/22 History capsule azelastine 137 mcg (0.1 %) nasal 1 mcg intranasal DIRECTED PRN 05/23/19 07/30/22 History spray aerosol Congestion fluticasone propionate 220 2 inh inhalation BID PRN Wheezing 05/23/19 07/30/22 History mcg/actuation HFA aerosol inhaler fluticasone propionate 50 2 spray intranasal DAILY 05/23/19 07/30/22 History mcg/actuation nasal spray,suspension thyroid (pork) 60 mg tablet 60 mg PO HS 05/23/19 07/30/22 History citalopram 20 mg tablet 30 mg PO HS 04/10/20 07/30/22 History lorazepam 1 mg tablet 1 mg PO HS 04/10/20 07/30/22 History jighnvpwtu-jwbqujevmttlk-xchceiiz 1 tab PO BID PRN pain #30 tabs 11/26/21 07/30/22 Rx 50 mg-325 mg-40 mg tablet Medical Marijuana 1 dose PO DIRECTED PRN Pain 05/08/22 07/30/22 History baclofen 5 mg tablet 5 mg PO BID PRN Spasms 05/08/22 07/30/22 History amlodipine 2.5 mg tablet 2.5 mg PO DAILY #30 tabs 07/29/22 07/30/22 Rx amoxicillin 875 mg-potassium 1 tab PO BID 5 days #10 tabs 07/29/22 07/30/22 Rx clavulanate 125 mg tablet aspirin 81 mg tablet,delayed 81 mg PO .weekly 07/30/22 07/30/22 History release Past Med/Surg History Medical History Asthma well controlled per pt CADASIL Chronic cerebral ischemia Classic migraine with aura Colitis resolved per pt Depression with anxiety GERD (gastroesophageal reflux disease) no meds Hyperlipidemia borderline Hypothyroidism Transient ischemic attack (TIA) several due to CADASIL dx > per pt last one approx December 2021 > right leg weakness > follows with Dr. Chairez Surgical History History of colonoscopy History of esophagogastroduodenoscopy (EGD) History of tonsillectomy History of tooth extraction [place] teeth extracted Family History Father CADASIL (cerebral AD arteriopathy w infarcts and leukoencephalopathy) Mother Stroke Diabetes Breast cancer Aunt Breast cancer Social History Smoking Status: Never smoker Second Hand Exposure: No; Hx Alcohol Use: Yes Alcohol type: wine Hx Substance Use: No Preferred Language: Albanian Communication Ability: Effective Auto Tester Required: No Beliefs That Will Affect Care: None Current Living Situation: Spouse current occupational status: retired Feels Safe at Home: Yes caffeine: Yes (coffee and tea ) Dental Care, Regularly: Yes Physical Activity Frequency: Does not Exercise Seatbelt Use: always Sunscreen Use: No Assistive Devices: None Review of Systems Review of Systems: As per HPI. Physical Exam Constitutional: WD/WN, vitals as above Respiratory: normal respiratory effort, lungs clear to auscultation Cardiovascular: RRR, no murmur, no edema Gastrointestinal (Abdomen): normal bowel sounds, soft, nontender, no hepatosplenomegaly Skin: no rashes, warm and dry Psychiatric: A+Ox3, euthymic affect Results & Data Results & Data ([facility]) Vital Signs (Past 12 Hours) Vital Signs Temp Pulse Resp BP Pulse Ox O2 Del Method 07/28/22 21:59 36.5 C 81 16 153/74 H 95 Room Air Diagnostic Findings Preliminary Findings Only See Final Report For Complete Findings CT ABDOMEN & PELVIS With Contrast: Comparison is made to prior study dated 03/27/2022. No acute findings in the abdomen or pelvis. No evidence of bowel obstruction. There is diverticulosis without diverticulitis. No urinary tract calculus or obstruction. No abnormal fluid or regional inflammatory reaction. Supervising Physician Co-Signing Physician Notes Attending addendum: I have physically seen this patient, have supervised the medical residents activities, and agree with the H&P unless as otherwise noted. Assessment and Plan: Rectal bleeding/history of ischemic colitis 9- CT abdomen and pelvis negative for acute findings Order mesenteric Dopplers N.p.o. LR at 80 mils per hour Serial laboratories Consult gastroenterology CADASIL- Temporarily hold aspirin until GI assessment completed Hypothyroidism- Continue thyroid pork 60 mg daily Depression with anxiety- Continue citalopram Remaining orders and notations as noted Resident Activity Tracking Resident Involvement: Resident Care Provided Care Provided: Adult Hospital Medicine
[2022-07-29] MEDS ORDERED: BUTALBITAL/ACETAMIN/CAFFEINE TAB PO PRN (03:56)
[2022-07-29] MEDS ORDERED: ACETAMINOPHEN 325 MG TAB PO PRN (03:56)
[2022-07-29] MEDS ORDERED: ONDANSETRON INJ 2 MG/ML 2 ML VIAL IV PRN (03:56)
[2022-07-29] MEDS ORDERED: LACTATED RINGER'S 1,000 ML IV SCH (03:56)
[2022-07-29 04:59] LABS: Calcium 8.9 mg/dl (8.5-10.1); Creatinine Clr Calc Pharmacy 86.5 ml/min; Est GFR (African American) 115.3 ml/min; Est GFR (Non-African American) 99.4 ml/min; Potassium 3.7 mmol/L (3.5-5.1)
[2022-07-29 05:02] LABS: Basophils # (auto) 0.06 K/uL (0-0.2); Basophils % (auto) 0.6 %; Eosinophils % (auto) 2.1 %; Hematocrit (blood only) 37.3 % (37.0-47.0); Hemoglobin 12.8 g/dl (12.0-16.0); Immature Granulocytes # (auto) 0.07 K/uL (0.01-0.20); Immature Granulocytes % (auto) 0.7 %; Lymphocytes # (auto) 1.99 K/uL (1.2-3.4); Lymphocytes % (auto) 21.1 %; Mean Corpuscular Hemoglobin 29.7 pg (25.0-34.0); Mean Corpuscular Hgb Conc 34.3 g/dL (32.0-36.0); Mean Corpuscular Volume 86.5 fL (80.0-100.0); Mean Platelet Volume 9.8 fL (9.4-12.4); Monocytes # (auto) 0.66 K/uL (0.11-0.59); Neutrophils # (auto) 6.45 K/uL (1.40-6.50); Neutrophils % (auto) 68.5 %; Platelet Count 424 K/uL (130-400); RDW Coefficient of Variation 13.1 % (11.5-14.5); RDW Standard Deviation 41.2 fL (36.4-46.3); Red Blood Count 4.31 M/uL (4.20-5.40); White Blood Count 9.43 K/ul (4.8-10.8)
--- NOTE | 2022-07-29 07:29 | Hospitalist Progress Note ---
Date of Service July 29, 2022 Assessment & Plan (1) Blood in stool: Plan: Angeles is a 67 year old female w/ PmHx CADASIL, hypothyroidism, depression/anxiety, asthma admitted for blood in stool. Blood in stool: -Admitted 02/2022 for blood in stool w/ possible ischemic colitis on imaging. -WBC 17.18, hemoglobin 14.7, platelets 491. -CT A&P statrad w/o acute findings. -Pathology from biopsy of left colon from 05/14 w/ single small focus of active colitis. -Will obtain mesenteric duplex for possible ischemic colitis. -Placed on famotidine 40mg qAM. -NPO, IVF LR at 80ml/hr. -GI consulted, will appreciate recs. -Continue to monitor Hgb. Leukocytosis: -WBC 17.18 on admission. -May be recurrence of colitis in early stages. -PCR stool panel vázquez negative on previous admission including C diff toxin. -Continue to monitor w/ AM CBC. Thrombocytosis: -Platelets 491 on admission. -May be reactive to possible colitis. -Continue to trend. CADASIL: -Noted, holding ASA 81mg in face of potential bleed. Can continue home Fioricet for headaches. Hypothyroid: -Continue home thyroid (pork) 60mg Asthma: -No active respiratory issues. Continue to monitor, will hold home medications for now. Depression/anxiety: -Continue home citalopram. DVT Prophylaxis: SCDs F/E/N/GI: NPO, LR @ 80ml/hr Code status: DNR/DNI Dispo: Med/tele (2) Asthma: (3) CADASIL: (4) Hypothyroid: (5) Depression with anxiety: (6) Classic migraine with aura: Admission and Anticipated Discharge Date Admission Date: July 29, 2022 Review of Systems Review of Systems: As per HPI. Physical Exam Physical Exam: Gen: NAD, alert, interactive HEENT: Supple, no LAD, no thyromegaly, no JVD Resp:Non-labored, no wheezing/rhonchi/rales, CTAB CV:RRR, normal S1/S2, no M/R/G Abd: Soft, non-distended, no TTP, normoactive bowels, no masses Extr: 2+ dp bilaterally, no edema Skin: No rashes lesions or erythema Constitutional:I WD/WN, vitals as a sesar Respiratory: normal respiratory effort, lungs munira ar to auscultation Cardiovascular:I RRR, no murmur, no edema Gastrointestinal ( Abdomen): normal bowel sound s, soft, nontender , no hepatosplenom egaly Skin: no rashes, warm an d dry Psychiatric: A+Ox3, euthymic af fect Results & Data Results & Data ([facility]) Vital Signs (Past 12 Hours) Vital Signs Temp Pulse Pulse Resp BP BP Pulse Ox 07/29/22 04:43 07/29/22 04:42 68 18 110/58 L 96 07/28/22 21:59 36.5 C 81 16 153/74 H 95 Pulse Ox O2 Del Method O2 Del Method 07/29/22 04:43 96 Room Air 07/29/22 04:42 Room Air 07/28/22 21:59 Room Air
--- NOTE | 2022-07-29 07:36 | CT Scan Report ---
CT SCAN OF THE ABDOMEN AND PELVIS WITH IV CONTRAST CLINICAL HISTORY: Generalized abdominal pain. COMPARISON STUDY: Abdominal CT dated 03/27/2022. TECHNIQUE: Following the IV administration of 83 cc of Optiray 350, CT scan of the abdomen and pelvi s is performed from the lung bases to the proximal femora. Images are reviewed in the axial, sagittal , and coronal planes. IV contrast was administered without complication. A dose lowering technique wa s utilized adhering to the principles of ALARA. CT DOSE: 258.84 mGy.cm FINDINGS: Lung bases: The heart is normal in size and without pericardial effusion. There are scattered calcifi ed granulomas. The lung bases are otherwise clear noting bibasilar scarring/atelectasis. A small hiat al hernia is noted. Liver: The contrast-enhanced liver is normal in size, contour, and attenuation. There is no intrahepa tic biliary ductal dilatation. The hepatic veins and portal veins are patent. Gallbladder: Unremarkable. Spleen: Normal in size and attenuation. Pancreas: Unremarkable. Adrenal glands: Unremarkable. Kidneys: The contrast enhanced kidneys are normal in size and without hydronephrosis. The kidneys enh ance symmetrically. Abdominal vasculature: The abdominal aorta is normal in course and caliber noting moderate atheroscle rotic calcification. Bowel: There is mild colonic diverticulosis without CT evidence of acute diverticulitis. No bowel obs truction is seen. The colon is decompressed. There is mild wall thickening and edema identified in th e left colon. This extends from the splenic flexure to the sigmoid and indicates a nonspecific coliti s. The mesenteric vessels are patent. The appendix is normal as imaged. Peritoneum: There is no intraperitoneal free air or abdominal ascites. There is a small fat-containin g umbilical hernia. Lymphadenopathy: None. Pelvic viscera: The bladder, uterus, and adnexa are normal as visualized. Skeletal structures: The skeletal structures are osteopenic. There is mild lumbosacral spondylosis. N o lytic or blastic lesions are seen. IMPRESSION: 1. There is evidence of a mild nonspecific colitis of the left colon. Given the distribution this may be ischemic. This is similar in distribution but improved from the 03/27/2022 examination. Clinical c orrelation will be essential. 2. Colonic diverticulosis without CT evidence of acute diverticulitis. 3. The mesenteric vessels are patent. 4. Additional findings as above. ACT 112: Negative or not required by law. Electronically signed by: Amor Penny M.D. 07/29/2022 7:34 AM
[2022-07-29] MEDS ORDERED: FAMOTIDINE 40 MG TABLET PO SCH (09:00)
--- NOTE | 2022-07-29 09:20 | Gastrointestinal Consultation ---
Date of Consultation July 29, 2022 Assessment & Plan (1) Blood in stool: (2) Colitis: Plan Patient is a 67 y.o. female admitted with rectal bleeding, abdominal pain and diarrhea and CT findings most suggestive of ischemic colitis. -Bowel rest. Continue IV fluids and clear liquid diet. -Recommend initiation of Cipro 400 mg IV every 12 hours and Flagyl 500 mg IV every 8 hours. -Await mesenteric duplex as ordered. -Colonoscopy with Dr. Hastings in 6 weeks for further evaluation. -Rest per primary team. Thank you for allowing us to participate in the care of this patient. If you have any questions or concerns, please do not hesitate to contact us. History of Present Illness Reason for Consultation: Rectal bleeding Requesting Physician: Dr. Brunner Attending Physician: Zaid Booker DO History of Present Illness Patient is a 67 y.o. female with a history of asthma, migraine headache, depression and anxiety evaluated by Dr. Hastings in April of 2022 with colonoscopy due to symptoms of rectal bleeding. The colonoscopy demonstrated normal endoscopic appearance but with active focal colitis on the left colon via histology. She states she was doing well until yesterday. At that time, she began to develop abdominal pain and loose to watery stools and blood in stool x1 episode. Concerned, she presented to the ER for evaluation. Denies any fevers or chills. Labs and imaging reviewed. No leukocytosis or anemia. CT a/p with findings of left-sided colitis felt most reflective of ischemic colitis. She was sent for a mesenteric duplex this morning which is pending. No other complaints at present. Allergies Allergy/AdvReac Type Severity Reaction Status Date / Time argatroban Allergy Severe Unknown Verified 07/29/22 00:11 dabigatran etexilate Allergy Severe Unknown Verified 07/29/22 00:11 [From Pradaxa] vancomycin Allergy Severe RASH Verified 07/29/22 00:11 acetaminophen [From Vicodin] Allergy Unknown Unknown Verified 07/29/22 00:11 cat dander Allergy Unknown Unknown Verified 07/29/22 00:11 dog dander Allergy Unknown Unknown Verified 07/29/22 00:11 doxycycline Allergy Unknown RASH,VOMITT Verified 07/29/22 00:11 ING erythromycin base Allergy Unknown rash Verified 07/29/22 00:11 grass pollen Allergy Unknown Unknown Verified 07/29/22 00:11 horse dander Allergy Unknown Unknown Verified 07/29/22 00:11 hydrocodone [From Vicodin] Allergy Unknown Unknown Verified 07/29/22 00:11 tree nut Allergy Unknown Unknown Verified 07/29/22 00:11 apixaban AdvReac Severe Life-threatening Verified 07/29/22 00:11 ADR to ALL anticoagulants (Dx: CADASIL) edoxaban AdvReac Severe Life-threatening Verified 07/29/22 00:11 ADR to ALL anticoagulants (Dx: CADASIL) enoxaparin AdvReac Severe Life-threatening Verified 07/29/22 00:11 ADR to ALL anticoagulants (Dx: CADASIL) heparin AdvReac Severe Life-threatening Verified 07/29/22 00:11 ADR to ALL anticoagulants (Dx: CADASIL) rivaroxaban AdvReac Severe Life-threatening Verified 07/29/22 00:11 ADR to ALL anticoagulants (Dx: CADASIL) sodium citrate AdvReac Severe Life-threatening Verified 07/29/22 00:11 ADR to ALL anticoagulants (Dx: CADASIL) warfarin AdvReac Severe Life-threatening Verified 07/29/22 00:11 ADR to ALL anticoagulants (Dx: CADASIL) naproxen AdvReac Intermediate elevated BP Verified 07/29/22 00:11 Dust Allergy Unknown Unknown Uncoded 07/29/22 00:11 Home Medications Medication Instructions Recorded Confirmed Type arginine (L-arginine) 500 mg 1 cap PO BID 05/23/19 07/29/22 History capsule azelastine 137 mcg (0.1 %) nasal 1 mcg intranasal DIRECTED PRN 05/23/19 07/29/22 History spray aerosol Congestion fluticasone propionate 220 2 inh inhalation BID PRN Wheezing 05/23/19 07/29/22 History mcg/actuation HFA aerosol inhaler fluticasone propionate 50 2 spray intranasal DAILY 05/23/19 07/29/22 History mcg/actuation nasal spray,suspension thyroid (pork) 60 mg tablet 60 mg PO HS 05/23/19 07/29/22 History citalopram 20 mg tablet 30 mg PO HS 04/10/20 07/29/22 History lorazepam 1 mg tablet 1 mg PO HS 04/10/20 07/29/22 History bjbgzftncs-kzpwvyywhrdvc-exfueuut 1 tab PO BID PRN pain #30 tabs 11/26/21 07/29/22 Rx 50 mg-325 mg-40 mg tablet Medical Marijuana 1 dose PO DIRECTED PRN Pain 05/08/22 07/29/22 History aspirin 81 mg tablet,delayed 81 mg PO QAM 05/08/22 07/29/22 History release baclofen 5 mg tablet 5 mg PO BID PRN Spasms 05/08/22 07/29/22 History gabapentin 300 mg capsule 300 mg PO TID 07/29/22 07/29/22 History Patient History Medical History Asthma well controlled per pt CADASIL Chronic cerebral ischemia Classic migraine with aura Colitis resolved per pt Depression with anxiety GERD (gastroesophageal reflux disease) no meds Hyperlipidemia borderline Hypothyroidism Transient ischemic attack (TIA) several due to CADASIL dx > per pt last one approx December 2021 > right leg weakness > follows with Dr. Chairez Surgical History History of colonoscopy History of esophagogastroduodenoscopy (EGD) History of tonsillectomy History of tooth extraction [place] teeth extracted Family History Father CADASIL (cerebral AD arteriopathy w infarcts and leukoencephalopathy) Mother Stroke Diabetes Breast cancer Aunt Breast cancer Social History Smoking Status: Never smoker Second Hand Exposure: No; Do You Dip or Chew Tobacco: No; Hx Alcohol Use: Yes Alcohol type: wine Hx Substance Use: No Preferred Language: Macanese Communication Ability: Effective Hand Former Helper Required: No Beliefs That Will Affect Care: None Current Living Situation: Spouse current occupational status: retired Feels Safe at Home: Yes Safety Concerns: Feels Safe At This Time caffeine: Yes (coffee and tea ) Dental Care, Regularly: Yes Physical Activity Frequency: Does not Exercise Seatbelt Use: always Sunscreen Use: No Assistive Devices: None Review of Systems Review of Systems: All systems reviewed & are unremarkable except as noted in HPI & below Physical Exam Constitutional: WD/WN, vitals as above Eyes: EOM intact bilaterally Neck: normal appearance Respiratory: normal respiratory effort, lungs clear to auscultation Cardiovascular: Rate/Rhythm: regular rate and regular rhythm Heart Sounds: no gallop and no murmur Gastrointestinal (Abdomen): Inspection/Auscultation: abdomen normal to inspection and + hyperactive bowel sounds Percussion/Palpation: abdomen soft; abdomen nontender, no guarding and abdomen not rigid Musculoskeletal: Extremities: no cyanosis no lower extremity edema Skin: no rashes, warm and dry Neurologic: moves all extremities Psychiatric: A+Ox3, euthymic affect Results & Data ([facility]) Vital Signs (Past 12 Hours) Vital Signs Temp Pulse Pulse Resp BP BP Pulse Ox 07/29/22 04:43 07/29/22 04:42 68 18 110/58 L 96 07/28/22 21:59 36.5 C 81 16 153/74 H 95 Pulse Ox O2 Del Method O2 Del Method 07/29/22 04:43 96 Room Air 07/29/22 04:42 Room Air 07/28/22 21:59 Room Air Diagnostic Findings Laboratory Results WBC 9.43 K/ul (4.8-10.8) 07/29/22 04:24 RBC 4.31 M/uL (4.20-5.40) 07/29/22 04:24 Hgb 12.8 g/dl (12.0-16.0) 07/29/22 04:24 Hct 37.3 % (37.0-47.0) 07/29/22 04:24 MCV 86.5 fL (80.0-100.0) 07/29/22 04:24 MCH 29.7 pg (25.0-34.0) 07/29/22 04:24 MCHC 34.3 g/dL (32.0-36.0) 07/29/22 04:24 RDW Std Deviation 41.2 fL (36.4-46.3) 07/29/22 04:24 RDW Coeff of Kelly 13.1 % (11.5-14.5) 07/29/22 04:24 Plt Count 424 K/uL (130-400) H 07/29/22 04:24 MPV 9.8 fL (9.4-12.4) 07/29/22 04:24 Immature Gran % (Auto) 0.7 % 07/29/22 04:24 Neut % (Auto) 68.5 % 07/29/22 04:24 Lymph % (Auto) 21.1 % 07/29/22 04:24 Banks % (Auto) 7.0 % 07/29/22 04:24 Eos % (Auto) 2.1 % 07/29/22 04:24 Baso % (Auto) 0.6 % 07/29/22 04:24 Neut # (Auto) 6.45 K/uL (1.40-6.50) 07/29/22 04:24 Lymph # (Auto) 1.99 K/uL (1.2-3.4) 07/29/22 04:24 Banks # (Auto) 0.66 K/uL (0.11-0.59) H 07/29/22 04:24 Eos # (Auto) 0.20 K/uL (0-0.50) 07/29/22 04:24 Baso # (Auto) 0.06 K/uL (0-0.2) 07/29/22 04:24 Immature Gran # (Auto) 0.07 K/uL (0.01-0.20) 07/29/22 04:24 PT 11.4 Seconds (9.0-12.0) 07/28/22 22:12 INR 1.1 (0.9-1.1) 07/28/22 22:12 APTT 28.3 Seconds (21.0-31.0) 07/28/22 22:12 PTT Ratio 1.0 07/28/22 22:12 Sodium 136 mmol/L (136-145) 07/29/22 04:24 Potassium 3.7 mmol/L (3.5-5.1) 07/29/22 04:24 Chloride 107 mmol/L (98-107) 07/29/22 04:24 Carbon Dioxide 24 mmol/L (21-32) 07/29/22 04:24 Anion Gap 5 (3-11) 07/29/22 04:24 BUN 9 mg/dl (6-23) 07/29/22 04:24 Creatinine 0.50 mg/dl (0.6-1.2) L 07/29/22 04:24 Est Cr Clr Drug Dosing 86.5 ml/min 07/29/22 04:24 Est GFR ( Amer) 115.3 ml/min 07/29/22 04:24 Est GFR (Non-Af Amer) 99.4 ml/min 07/29/22 04:24 BUN/Creatinine Ratio 18.0 (10-20) 07/29/22 04:24 Glucose 110 mg/dl (70-99(Fasting)) H 07/29/22 04:24 Lactate 1.0 mmol/L (0.4-2.0) 07/28/22 23:59 Calcium 8.9 mg/dl (8.5-10.1) 07/29/22 04:24 Total Bilirubin 0.4 mg/dl (0.2-1.0) 07/28/22 22:12 AST 22 U/L (13-39) 07/28/22 22:12 ALT 15 U/L (7-52) 07/28/22 22:12 Alkaline Phosphatase 88 U/L (34-104) 07/28/22 22:12 Total Protein 7.4 gm/dl (6.0-8.3) 07/28/22 22:12 Albumin 4.5 gm/dl (3.4-5.0) 07/28/22 22:12 Globulin 2.9 gm/dl (2.5-4.0) 07/28/22 22:12 Albumin/Globulin Ratio 1.6 (0.9-2) 07/28/22 22:12 SARS-CoV-2, RNA, NAAT NEGATIVE (NEGATIVE) 07/29/22 02:23 Blood Type O Positive 07/28/22 22:12 Antibody Screen NEGATIVE 07/28/22 22:12 Impressions Abdomen/Pelvis CT 07/28/22 22:56 CT SCAN OF THE ABDOMEN AND PELVIS WITH IV CONTRAST CLINICAL HISTORY: Generalized abdominal pain. COMPARISON STUDY: Abdominal CT dated 03/27/2022. TECHNIQUE: Following the IV administration of 83 cc of Optiray 350, CT scan of the abdomen and pelvis is performed from the lung bases to the proximal femora. Images are reviewed in the axial, sagittal, and coronal planes. IV contrast was administered without complication. A dose lowering technique was utilized adhering to the principles of ALARA. CT DOSE: 258.84 mGy.cm FINDINGS: Lung bases: The heart is normal in size and without pericardial effusion. There are scattered calcified granulomas. The lung bases are otherwise clear noting bibasilar scarring/atelectasis. A small hiatal hernia is noted. Liver: The contrast-enhanced liver is normal in size, contour, and attenuation. There is no intrahepatic biliary ductal dilatation. The hepatic veins and portal veins are patent. Gallbladder: Unremarkable. Spleen: Normal in size and attenuation. Pancreas: Unremarkable. Adrenal glands: Unremarkable. Kidneys: The contrast enhanced kidneys are normal in size and without hydronephrosis. The kidneys enhance symmetrically. Abdominal vasculature: The abdominal aorta is normal in course and caliber noting moderate atherosclerotic calcification. Bowel: There is mild colonic diverticulosis without CT evidence of acute diverticulitis. No bowel obstruction is seen. The colon is decompressed. There is mild wall thickening and edema identified in the left colon. This extends from the splenic flexure to the sigmoid and indicates a nonspecific colitis. The mesenteric vessels are patent. The appendix is normal as imaged. Peritoneum: There is no intraperitoneal free air or abdominal ascites. There is a small fat-containing umbilical hernia. Lymphadenopathy: None. Pelvic viscera: The bladder, uterus, and adnexa are normal as visualized. Skeletal structures: The skeletal structures are osteopenic. There is mild lumbosacral spondylosis. No lytic or blastic lesions are seen. IMPRESSION: 1. There is evidence of a mild nonspecific colitis of the left colon. Given the distribution this may be ischemic. This is similar in distribution but improved from the 03/27/2022 examination. Clinical correlation will be essential. 2. Colonic diverticulosis without CT evidence of acute diverticulitis. 3. The mesenteric vessels are patent. 4. Additional findings as above. ACT 112: Negative or not required by law. Electronically signed by: Amor Penny M.D. 07/29/2022 7:34 AM PG Care Time/CCT Total # of Minutes Spent Total Time Spent with Patient: Total time spent is greater than 50% in coordination of care (as documented) at patient's floor/unit and/or counseling patient: Coding Level of Care Code 47378 INT INP/OBS CARE 3/75MIN Diagnoses Blood in stool K92.1 Colitis K52.9
[2022-07-29] MEDS ORDERED: metroNIDAZOLE 500 MG/100 ML BAG IV SCH (10:00)
[2022-07-29] MEDS ORDERED: CIPROFLOXACIN / D5W 400 MG/200 ML BAG IV SCH (10:00)
--- NOTE | 2022-07-29 11:42 | Ultrasound Report ---
US duplex mesenteric HISTORY: 67 years-old Female hx ischemic colitis last admission acute rectal bleeding with clinical concern for ischemic colitis COMPARISON: CT 07/28/2022 TECHNIQUE: Multiple real-time sonographic images of the mesenteric vessels were obtained assessing gr ayscale appearance, color and spectral flow FINDINGS: Peak systolic velocities within the celiac artery measure up to 184 cm/s. Patent superior mesenteric artery, peak systolic velocities measuring up to 120 cm/s proximally, and 55 cm/s distally. No arteri al occlusion identified. IMPRESSION: No arterial occlusion or significant stenosis identified. ACT 112: Negative or not required by law. The above report was generated using voice recognition software. It may contain grammatical, syntax o r spelling errors. Electronically signed by: Paul Bowden M.D. 07/29/2022 11:40 AM
--- NOTE | 2022-07-29 18:40 | Discharge Summary ---
Date of Service July 29, 2022 Admission HPI Per Admitting Provider Angeles is a 67 year old female w/ PmH CADASIL, hypothyroidism, depression/anxiety, asthma presenting to the ED with blood in stool x1 episode. Patient was previously admitted to the hospital in late February to March for 3 days of bloody diarrhea w/ N/V and generalized abdominal pain. At that time her stool PCR was vázquez negative, blood cultures negative, CT A&P showed mid to distal transverse colon colitis, she was put on Zosyn then transitioned to home regimen of Cipro and Flagyl. She had a colonoscopy in April which showed normal colon, 2 3-4mm polyps benign. She states that she felt good since dischar ge however around 6PM on 07/28 she had a bloody bowel movement along with the same cramping and bloating abdominal pain feeling as well as nausea and one episode of non-bloody emesis. She has had less of an appetite for the past few days and says that she's been eating things like cashews and small amounts of food. She denies any shortness of breath, chest pain, current nausea, fevers, chills, headaches. She says her PCP used to be Greta Pantoja however she retired and she recently went to a new PCP within the past few days. She says the takes aspirin 81mg once a week and the last dose was 2 days ago. She denies any smoking or tobacco use, occasional alcohol use. In the ED her WBC was elevated at 17.18, Hgb 14.7, platelets elevated at 491, PT/INR, electrolytes, kidney function, liver enzymes WNL. CT A&P stat rad reads no acute findings in A&P, diverticulosis w/o diverticulitis. Principal Diagnosis Recurrent colitismost consistent with ischemic, concern on atypical pathology related to her CADASIL Discharge Exam In general she is awake and alert pleasant no distress. HEENT normocephalic atraumatic mucous membranes moist. Breathing unlabored no accessory muscle use good effort. Skin shows no rashes no pallor or icterus. Neuro without focal deficits. Discharge Data Allergies Allergy/AdvReac Type Severity Reaction Status Date / Time argatroban Allergy Severe Unknown Verified 07/29/22 00:11 dabigatran etexilate Allergy Severe Unknown Verified 07/29/22 00:11 [From Pradaxa] vancomycin Allergy Severe RASH Verified 07/29/22 00:11 acetaminophen [From Vicodin] Allergy Unknown Unknown Verified 07/29/22 00:11 cat dander Allergy Unknown Unknown Verified 07/29/22 00:11 dog dander Allergy Unknown Unknown Verified 07/29/22 00:11 doxycycline Allergy Unknown RASH,VOMITT Verified 07/29/22 00:11 ING erythromycin base Allergy Unknown rash Verified 07/29/22 00:11 grass pollen Allergy Unknown Unknown Verified 07/29/22 00:11 horse dander Allergy Unknown Unknown Verified 07/29/22 00:11 hydrocodone [From Vicodin] Allergy Unknown Unknown Verified 07/29/22 00:11 tree nut Allergy Unknown Unknown Verified 07/29/22 00:11 apixaban AdvReac Severe Life-threatening Verified 07/29/22 00:11 ADR to ALL anticoagulants (Dx: CADASIL) edoxaban AdvReac Severe Life-threatening Verified 07/29/22 00:11 ADR to ALL anticoagulants (Dx: CADASIL) enoxaparin AdvReac Severe Life-threatening Verified 07/29/22 00:11 ADR to ALL anticoagulants (Dx: CADASIL) heparin AdvReac Severe Life-threatening Verified 07/29/22 00:11 ADR to ALL anticoagulants (Dx: CADASIL) rivaroxaban AdvReac Severe Life-threatening Verified 07/29/22 00:11 ADR to ALL anticoagulants (Dx: CADASIL) sodium citrate AdvReac Severe Life-threatening Verified 07/29/22 00:11 ADR to ALL anticoagulants (Dx: CADASIL) warfarin AdvReac Severe Life-threatening Verified 07/29/22 00:11 ADR to ALL anticoagulants (Dx: CADASIL) naproxen AdvReac Intermediate elevated BP Verified 07/29/22 00:11 Dust Allergy Unknown Unknown Uncoded 07/29/22 00:11 Consultations 07/29/22 00:47 ED Decision to Admit Stat 07/29/22 03:56 Consult Gastroenterology Routine Ordered Studies 07/28/22 22:56 CT Abd and Pelvis [CT abd pelvis IV con only] Urgent 07/29/22 03:56 US duplex mesenteric Routine Hospital Course (1) Colitis: This is now the second time in about 4-5 months I have taken care of her for a picture consistent with colitismost consistent with ischemicbut without any known atherosclerotic disease, and without any visible mesenteric atherosclerosis on imaging. While her picture may simply be random incident, or it may simply even be an infectious colitis masquerading as ischemic, she and I both wondered in the falll, as well as now, if she could have some degree of vasospasm related to her CADASIL. Obviously this would be almost impossible to prove, especially with a diagnosis that has a paucity of literature on its "typical" manifestations (let alone atypical), so we discussed the risk benefit of utilizing medications that we would use in more typical vasospastic situations (such as vasospastic angina or migraine). To that end after careful discussion of risk/benefits/possible side effectswe will give trial to amlodipine 2.5 mg daily. She would very much like to go home, and it seems like she would be very safe/stable to do so. Finish course of antibiotics p.o. Outpatient PCP follow-up. Outpatient GI follow-up. Total Time Total Time Spent Total Time Spent (In Minutes): <30 Discharge Plan Discharge Items Patient Disposition: Home - Self-Care Reason For Visit: BLOOD IN STOOL Discharge Diagnosis: Colitis Activity: Per Instructions section Non-emergency contact: Primary Care Provider and Student Accounts Coordinator Call non-emergency contact if: you have any medication questions Follow-up/Referrals: Vivek Rogers DO [Physician] - (patient will need colonoscopy scheduled in 6 weeks) Ese Reeder MD [Primary Care Provider] - (please schedule f/u within 1 week of discharge) Diet: Regular Addtl Attending Provider Instructions: You were admitted to [facility] on 07/29 for colitis (inflammation of colon). We performed blood testing, imaging, and we had our GI specialist see you. It was determined that your bowel inflammation is due to either infection or possibly ischemia (decreased blood flow due to intestinal blood vessels). Thankfully you do not have signs of clots in your intestinal blood vessels, and it may be that your CADASIL is causing the intestinal blood vessels to clamp down temporarily, causing the colitis. You will be discharged on 07/29. Please continue to take an antibiotic called Augmentin twice per day for the next 5 days, starting tonight. Please also start taking Amlodipine, which is a blood pressure medicine that can help with keeping your blood vessels open. You will need to follow up with your PCP within 1 week of discharge, and you will need to follow up with our GI doctors in ~6 weeks for a colonoscopy. Please continue to take all of your regular medications. We hope you continue to feel better. Pending Studies at Discharge: No Stand-Alone Forms: My [facility], Smoking Cessation Medications and DC Order Prescriptions: New amlodipine 2.5 mg tablet 2.5 mg PO DAILY Qty: 30 1RF amoxicillin-pot clavulanate 875-125 mg tablet 1 tab PO BID 5 Days Qty: 10 0RF Continued idewiepfvp-zczqoafskblif-gcww 50-325-40 mg tablet 1 tab PO BID PRN (Reason: pain) Qty: 30 1RF arginine (L-arginine) 500 mg capsule 1 cap PO BID thyroid (pork) 60 mg tablet 60 mg PO HS fluticasone propionate 220 mcg/actuation HFA aerosol inhaler 2 inh INH BID PRN (Reason: Wheezing) azelastine 137 mcg (0.1 %) aerosol,spray 1 mcg INTNAS DIRECTED PRN (Reason: Congestion) fluticasone propionate 50 mcg/actuation spray,suspension 2 spray INTNAS DAILY lorazepam 1 mg tablet 1 mg PO HS citalopram 20 mg tablet 30 mg PO HS baclofen 5 mg Tablet 5 mg PO BID PRN (Reason: Spasms) aspirin 81 mg tablet,delayed release (DR/EC) 81 mg PO QAM Medical Marijuana 1 dose PO DIRECTED PRN (Reason: Pain) gabapentin 300 mg capsule 300 mg PO TID Discharge Orders: Discharge Order (Routine); Ordered 07/29/22 Ordered By: Aniket Leone Admission Data Admit Date/Time: 07/29/22 01:48 Attending Provider: Zaid Booker Admit Provider: Tevin Brunner Primary Care Provider: Ese Reeder Other Providers: Adiel Patterson ; Vivek Rogers Other Interventions: Discharge Summary Assessment (RN) Last Done: 07/29/22 15:04 Coding Level of Care Code HOSP INP/OBS DISCH 30 MIN/LESS Diagnoses Colitis K52.9
[2022-07-29] MEDS ORDERED: ARMOUR THYROID 30 MG TAB PO SCH (21:00)
[2022-07-29] MEDS ORDERED: CITALOPRAM 20 MG TAB PO SCH (21:00)
--- NOTE | 2022-07-30 23:04 | Billing Data ---
Date of Service July 30, 2022 Coding Level of Care Code 00372 INT INP/OBS CARE
== END 2022-07-29 15:15 | disposition home or self-care (01) ==
LOC: ED 21:56 → INTOOBSV 07-29 01:48 → SUATTDRO 07-29 01:48 → EDINP 07-29 01:48

== ENCOUNTER 2023-11-13 14:17 | Inpatient (IN) ==
[2023-11-13] MEDS: OPTIRAY 320 125ml IV ONE (14:37)
--- NOTE | 2023-11-13 14:37 | Emergency Department Note ---
Impression & Plan Acute confusion, Expressive aphasia, Leukocytosis, Vomiting, Headache ED Provider Note HISTORY OF PRESENT ILLNESS: Patient is a 68-year-old female presenting with confusion. reports that last night around 9 PM the patient started having acute onset of headache. She has vomited multiple times throughout the night. He reports she slept in the room because she kept getting up to vomit. States that this morning when he went to check on the patient she was still complaining of a headache and had difficulties voicing any words. Reports that she is unable to form a sentence. No focal weakness. She states that her confusion is getting worse. She is not on any anticoagulation. Denies any recent fevers. No reported falls or recent head injuries. No recent chiropractic manipulation of her neck. ROS: as above PHYSICAL EXAM: Constitutional: Patient appears in no acute distress. HENT: Head: Normocephalic and atraumatic. Eyes: EOMI, PERRL Mouth/Throat: Mucous membranes moist. Neck: Trachea midline. Neck supple. Cardiovascular: RRR, No murmurs, rubs or gallops. Intact distal pulses. Pulmonary/Chest: No respiratory distress. Breath sounds clear and equal bilaterally. No wheezes or rales. Abdominal: Abdomen soft, no tenderness, rebound or guarding. Musculoskeletal: No edema, tenderness or deformity noted. Skin: Warm and dry. No rash, erythema, pallor or cyanosis Psychiatric: Appropriate mood and affect for situation. Neurological: Alert but unable to answer questions. She is able to vocalize an occasional "yes" and "no." Neurological exam is difficult, as patient has difficulties following any directions. She does move all extremities s pontaneously MDM: - Vitals signs showed hypertension. Fingerstick blood glucose 137 - History obtained via patient's , given patient's confusion. History as above. - Chronic conditions affecting care: CADASIL; cognitive impairment; hypothyroidism; chronic cerebral ischemia - Differential diagnoses include, but are not limited to: CVA; intracranial hemorrhage; viral syndrome; ACS; pneumonia; UTI; electrolyte abnormality - Order placed for continuous cardiac monitoring. At this time, monitor showed rate of 80 bpm with normal sinus rhythm, per my interpretation. - External medical records reviewed. Primary care visit note dated 09/30/2023 was reviewed. Patient follows in their clinic for her chronic medical problems. 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 - Discussed case with [facility] stroke neurologist, Dr. Gutierrez at 15:03. He plans to evaluate patient on the tele stroke cart. 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 - EKG interpreted by myself showed normal sinus rhythm. Rate 82 bpm. QT 392. No acute ischemic changes. - Laboratory workup interpreted by myself showed leukocytosis (WBC 15.77); thrombocytosis (plt 533); stable electrolytes; elevated anion gap (13 - likely in setting of recurrent vomiting); normal liver function - CXR negative for pneumonia, per my interpretation - Viral respiratory panel negative - UA negative for infection. Noted to have ketonuria - Patient given 1L NS and 4 mg IV zofran - CT head wo contrast negative for acute intracranial hemorrhage - CTA head/neck negative for acute pathology, per radiology - Discussed case again with Dr. Gutierrez at 15:53. He recommends MRI brain and further workup for patient's aphasia and leukocytosis. - Lactate and procalcitonin added to workup - Considered CT abdomen/pelvis, given patient's vomiting, but patient has no reproducible abdominal pain on her examination and on reassessment - Discussion was had with dependency case manager about patient's case and need for admission - Hospitalist consulted for admission - Patient admitted to [facility] hospitalist service for further evaluation and management. ASSESSMENT AND PLAN: Diagnosis: acute confusion; expressive aphasia; leukocytosis; vomiting; headache Plan: admit Past Med/Surg History Problem List (Updated 11/13/23 @ 16:19 by Alanna Kilpatrick MD) Headache (Acute) Vomiting (Acute) Leukocytosis (Acute) Expressive aphasia (Acute) Acute confusion (Acute) Sciatica Dry skin dermatitis Vitamin B 12 deficiency Vitamin D deficiency Meralgia paresthetica of left side Chronic abdominal pain Encounter for examination following treatment at hospital Routine health maintenance Encounter for pre-operative examination Asthma (Chronic) Primary hypothyroidism (Acute) Fatigue (Acute) Classic migraine with aura (Acute) Chronic daily headache (Acute) Chronic cerebral ischemia (Acute) CADASIL (cerebral autosomal dominant arteriopathy with subcortical infarcts and leukoencephalopathy) (Acute) Atypical migraine (Acute) Depression with anxiety (Acute) Cognitive impairment Low back pain Transient alteration of awareness Colitis (Acute) Hypothyroid CADASIL Medical History Chronic abdominal pain Blood in stool Colitis Classic migraine with aura Chronic cerebral ischemia GERD (gastroesophageal reflux disease) Hypothyroidism Transient ischemic attack (TIA) CADASIL Hyperlipidemia Depression with anxiety Asthma Surgical History History of tonsillectomy History of tooth extraction [place] teeth extracted History of esophagogastroduodenoscopy (EGD) History of colonoscopy Family History Father CADASIL (cerebral AD arteriopathy w infarcts and leukoencephalopathy) Mother Stroke Diabetes Breast cancer Aunt Breast cancer Social History Smoking Status: Unknown if ever smoked Second Hand Exposure: No; Do You Dip or Chew Tobacco: No; Hx Alcohol Use: No Hx Substance Use: Yes Non-Prescribed Medications: Marijuana Last Used Substance: Days (ago) Last Used Substance Other:: yesterday Substance Use Type Other:: medical card > daily use Preferred Language: Bruneian Communication Ability: Effective Visual Impairment: Limited Hearing Ability: Normal Railway 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 Required: No Beliefs That Will Affect Care: None marital status: Current Living Situation: Spouse current occupational status: retired How many Children do You have: 2 Feels Safe at Home: Yes Childhood Exposure to Second-Hand Smoke: No Diet: regular caffeine: Yes (coffee and tea ) during the past year weight has: remained stable Dental Care, Regularly: Yes Physical Activity Frequency: Does not Exercise Seatbelt Use: always Sunscreen Use: No Do you think of yourself as: straight/heterosexual Gender Identity: Female Assistive Devices: Glasses Allergies Allergies Allergy/AdvReac Type Severity Reaction Status Date / Time argatroban Allergy Severe Unknown Verified 11/13/23 15:35 dabigatran etexilate Allergy Severe Unknown Verified 11/13/23 15:35 [From Pradaxa] vancomycin Allergy Severe RASH Verified 11/13/23 15:35 cat dander Allergy Unknown Unknown Verified 11/13/23 15:35 dog dander Allergy Unknown Unknown Verified 11/13/23 15:35 doxycycline Allergy Unknown RASH,VOMITT Verified 11/13/23 15:35 ING erythromycin base Allergy Unknown rash Verified 11/13/23 15:35 grass pollen Allergy Unknown Unknown Verified 11/13/23 15:35 horse dander Allergy Unknown Unknown Verified 11/13/23 15:35 apixaban AdvReac Severe Life-threatening Verified 11/13/23 15:35 ADR to ALL anticoagulants (Dx: CADASIL) edoxaban AdvReac Severe Life-threatening Verified 11/13/23 15:35 ADR to ALL anticoagulants (Dx: CADASIL) enoxaparin AdvReac Severe Life-threatening Verified 11/13/23 15:35 ADR to ALL anticoagulants (Dx: CADASIL) heparin AdvReac Severe Life-threatening Verified 11/13/23 15:35 ADR to ALL anticoagulants (Dx: CADASIL) rivaroxaban AdvReac Severe Life-threatening Verified 11/13/23 15:35 ADR to ALL anticoagulants (Dx: CADASIL) sodium citrate AdvReac Severe Life-threatening Verified 11/13/23 15:35 ADR to ALL anticoagulants (Dx: CADASIL) warfarin AdvReac Severe Life-threatening Verified 11/13/23 15:35 ADR to ALL anticoagulants (Dx: CADASIL) naproxen AdvReac Intermediate elevated BP Verified 11/13/23 15:35 acetaminophen [From Vicodin] AdvReac Unknown vomiting Verified 11/13/23 15:35 hydrocodone [From Vicodin] AdvReac Unknown Vomiting Verified 11/13/23 15:35 Dust Allergy Unknown Unknown Uncoded 11/13/23 15:35 Home Meds Home Medications Medication Instructions Recorded Confirmed Medical Marijuana 1 dose PO DIRECTED PRN Pain 05/08/22 11/13/23 escitalopram oxalate 10 mg tablet 10 mg PO DAILY 03/03/23 11/13/23 (Lexapro) [id number] 0 cap PO Q8H PRN migraines and pain 11/13/23 11/13/23 50 mg-300 mg-40 mg capsule (Fioricet) ergocalciferol (vitamin D2) 1,250 50,000 unit PO WK 11/13/23 11/13/23 mcg (50,000 unit) capsule Previous Rx's Medication Instructions Recorded thyroid (pork) 60 mg tablet 60 mg PO HS #90 tabs 03/26/23 Results & Data (ED) Vital Signs Vital Signs - 24 hr 11/13/23 14:19 11/13/23 14:33 11/13/23 14:42 Pulse Rate 89 85 Pulse Rate from SpO2 Sensor 86 Respiratory Rate 18 12 Respiratory Effort / Characteristics Non-Labored Respiratory Depth Normal Respiratory Pattern Regular Blood Pressure 161/82 H Blood Pressure Mean 108 Blood Pressure Position Sitting Pulse Oximetry 94 98 Oxygen Delivery Method Room Air Room Air Sepsis Recent Fever Within 48 Hours No Sepsis New/Unexplained Change in Mental Status Yes Sepsis Action Taken by Nursing No Action Required 11/13/23 14:42 11/13/23 14:47 11/13/23 14:58 Pulse Rate 95 H 88 Pulse Rate from SpO2 Sensor 95 H Respiratory Rate 18 Respiratory Effort / Characteristics Respiratory Depth Respiratory Pattern Blood Pressure 156/77 H Blood Pressure Mean 103 Blood Pressure Position Pulse Oximetry 97 Oxygen Delivery Method Room Air Room Air Sepsis Recent Fever Within 48 Hours Sepsis New/Unexplained Change in Mental Status Sepsis Action Taken by Nursing 11/13/23 15:00 11/13/23 15:10 11/13/23 15:15 Pulse Rate 86 86 83 Pulse Rate from SpO2 Sensor 85 85 82 Respiratory Rate 18 17 18 Respiratory Effort / Characteristics Respiratory Depth Respiratory Pattern Blood Pressure 154/81 H Blood Pressure Mean 105 Blood Pressure Position Pulse Oximetry 96 96 97 Oxygen Delivery Method Room Air Sepsis Recent Fever Within 48 Hours Sepsis New/Unexplained Change in Mental Status Sepsis Action Taken by Nursing 11/13/23 15:15 11/13/23 15:20 11/13/23 15:30 Pulse Rate 82 Pulse Rate from SpO2 Sensor Respiratory Rate 16 Respiratory Effort / Characteristics Respiratory Depth Respiratory Pattern Blood Pressure 147/80 H 157/77 H Blood Pressure Mean 96 128 Blood Pressure Position Pulse Oximetry Oxygen Delivery Method Sepsis Recent Fever Within 48 Hours Sepsis New/Unexplained Change in Mental Status Sepsis Action Taken by Nursing 11/13/23 15:45 11/13/23 15:45 11/13/23 15:50 Pulse Rate 87 79 Pulse Rate from SpO2 Sensor 78 Respiratory Rate 17 20 Respiratory Effort / Characteristics Respiratory Depth Respiratory Pattern Blood Pressure 161/81 H Blood Pressure Mean 100 Blood Pressure Position Pulse Oximetry 95 Oxygen Delivery Method Sepsis Recent Fever Within 48 Hours Sepsis New/Unexplained Change in Mental Status Sepsis Action Taken by Nursing Laboratory Data 11/13/23 14:36 11/13/23 14:35 Lab Results 11/13/23 11/13/23 11/13/23 Range/Units 14:29 14:35 14:36 WBC 15.77 H (4.8-10.8) K/ul RBC 5.16 (4.20-5.40) M/uL Hgb 15.3 (12.0-16.0) g/dl POC Hgb (12.0-16.0) g/dl Hct 44.2 (37.0-47.0) % POC Hct (37-47) % MCV 85.7 (80.0-100.0) fL MCH 29.7 (25.0-34.0) pg MCHC 34.6 (32.0-36.0) g/dL RDW Std Deviation 41.3 (36.4-46.3) fL RDW Coeff of Kelly 13.3 (11.5-14.5) % Plt Count 533 H (130-400) K/uL MPV 9.9 (9.4-12.4) fL PT 11.5 (9.0-12.0) Seconds INR 1.1 (0.9-1.1) APTT 25 (21-31) Seconds PTT Ratio 0.9 POC Sodium (135-144) mmol/L Sodium 136 (136-145) mmol/L POC Potassium (3.3-5.0) mmol/L Potassium 3.6 (3.5-5.1) mmol/L POC Chloride (101-112) mmol/L Chloride 102 (98-107) mmol/L Carbon Dioxide 21 (21-32) mmol/L POC Total CO2 (24-31) mmol/L Anion Gap 13 H (3-11) POC Anion Gap (16-25) mmol/L POC BUN (7-18) mg/dl BUN 14 (6-23) mg/dl Creatinine 0.57 L (0.6-1.2) mg/dl POC Creatinine (0.6-1.3) mg/dl Est Cr Clr Drug Dosing Not Reportable Est GFR ( Amer) 109.6 ml/min Est GFR (Non-Af Amer) 94.6 ml/min BUN/Creatinine Ratio 24.6 H (10-20) Glucose 126 H (70-99(Fasting)) mg/dl POC Glucose 137 H (70-99) mg/dl POC Glucose (other) (70-99) mg/dl Calcium 9.9 (8.6-10.3) mg/dl POC Ioniz Calcium Deonna (1.12-1.32) mmol/l Magnesium 2.0 (1.7-2.4) mg/dl Total Bilirubin 0.6 (0.2-1.0) mg/dl AST 21 (13-39) U/L ALT 13 (7-52) U/L Alkaline Phosphatase 87 (34-104) U/L Total Protein 8.1 (6.0-8.3) gm/dl Albumin 4.6 (3.4-5.0) gm/dl Globulin 3.5 (2.5-4.0) gm/dl Albumin/Globulin Ratio 1.3 (0.9-2) Urine Color Urine Appearance (Clear) Urine pH (4.5-7.5) Ur Specific Spencer (1.000-1.030) Urine Protein (Negative) Urine Glucose (UA) (Negative) Urine Ketones (Negative) Urine Blood (Negative) Urine Nitrite (Negative) Urine Bilirubin (Negative) Urine Urobilinogen (Negative) Ur Leukocyte Esterase (Negative) Urine WBC (Auto) (0-5) /hpf Urine RBC (Auto) (0-2) /hpf U Hyaline Cast (Auto) (0-2) /lpf U Epithel Cells (Auto) (0-2) /hpf Urine Bacteria (Auto) (None Seen) Adenovirus (PCR) (NotDetected) B. pertussis DNA (PCR) (NotDetected) B.parapertussis DNA PCR (NotDetected) C. pneumoniae DNA (PCR) (NotDetected) Coronavirus OC43 (PCR) (NotDetected) Coronavirus HKU1 (PCR) (NotDetected) Coronavirus 229E (PCR) (NotDetected) SARS-CoV-2 (PCR) (NotDetected) Coronavirus NL63 (PCR) (NotDetected) Human Metapneumovir PCR (NotDetected) Influenza Type A (PCR) (NotDetected) Influenza Type B (PCR) (NotDetected) M. pneumoniae (PCR) (NotDetected) Parainfluenza 1 (PCR) (NotDetected) Parainfluenza 2 (PCR) (NotDetected) Parainfluenza 3 (PCR) (NotDetected) Parainfluenza 4 (PCR) (NotDetected) RSV (PCR) (NotDetected) Entero/Rhino (PCR) (NotDetected) 11/13/23 11/13/23 11/13/23 Range/Units 14:37 14:55 15:45 WBC (4.8-10.8) K/ul RBC (4.20-5.40) M/uL Hgb (12.0-16.0) g/dl POC Hgb 15.3 (12.0-16.0) g/dl Hct (37.0-47.0) % POC Hct 45 (37-47) % MCV (80.0-100.0) fL MCH (25.0-34.0) pg MCHC (32.0-36.0) g/dL RDW Std Deviation (36.4-46.3) fL RDW Coeff of Kelly (11.5-14.5) % Plt Count (130-400) K/uL MPV (9.4-12.4) fL PT (9.0-12.0) Seconds INR (0.9-1.1) APTT (21-31) Seconds PTT Ratio POC Sodium 136 (135-144) mmol/L Sodium (136-145) mmol/L POC Potassium 4.1 (3.3-5.0) mmol/L Potassium (3.5-5.1) mmol/L POC Chloride 105 (101-112) mmol/L Chloride (98-107) mmol/L Carbon Dioxide (21-32) mmol/L POC Total CO2 22 L (24-31) mmol/L Anion Gap (3-11) POC Anion Gap 15.0 L (16-25) mmol/L POC BUN 17 (7-18) mg/dl BUN (6-23) mg/dl Creatinine (0.6-1.2) mg/dl POC Creatinine 0.4 L (0.6-1.3) mg/dl Est Cr Clr Drug Dosing Est GFR ( Amer) ml/min Est GFR (Non-Af Amer) ml/min BUN/Creatinine Ratio (10-20) Glucose (70-99(Fasting)) mg/dl POC Glucose (70-99) mg/dl POC Glucose (other) 136 H (70-99) mg/dl Calcium (8.6-10.3) mg/dl POC Ioniz Calcium Deonna 1.06 L (1.12-1.32) mmol/l Magnesium (1.7-2.4) mg/dl Total Bilirubin (0.2-1.0) mg/dl AST (13-39) U/L ALT (7-52) U/L Alkaline Phosphatase (34-104) U/L Total Protein (6.0-8.3) gm/dl Albumin (3.4-5.0) gm/dl Globulin (2.5-4.0) gm/dl Albumin/Globulin Ratio (0.9-2) Urine Color Yellow Urine Appearance Clear (Clear) Urine pH 8.5 H (4.5-7.5) Ur Specific Spencer > 1.045 H (1.000-1.030) Urine Protein Trace H (Negative) Urine Glucose (UA) Negative (Negative) Urine Ketones 1+ H (Negative) Urine Blood Negative (Negative) Urine Nitrite Negative (Negative) Urine Bilirubin Negative (Negative) Urine Urobilinogen Negative (Negative) Ur Leukocyte Esterase Negative (Negative) Urine WBC (Auto) 0-5 (0-5) /hpf Urine RBC (Auto) 0-2 (0-2) /hpf U Hyaline Cast (Auto) 0-2 (0-2) /lpf U Epithel Cells (Auto) 0-2 (0-2) /hpf Urine Bacteria (Auto) None Seen (None Seen) Adenovirus (PCR) Not Detected (NotDetected) B. pertussis DNA (PCR) Not Detected (NotDetected) B.parapertussis DNA PCR Not Detected (NotDetected) C. pneumoniae DNA (PCR) Not Detected (NotDetected) Coronavirus OC43 (PCR) Not Detected (NotDetected) Coronavirus HKU1 (PCR) Not Detected (NotDetected) Coronavirus 229E (PCR) Not Detected (NotDetected) SARS-CoV-2 (PCR) Not Detected (NotDetected) Coronavirus NL63 (PCR) Not Detected (NotDetected) Human Metapneumovir PCR Not Detected (NotDetected) Influenza Type A (PCR) Not Detected (NotDetected) Influenza Type B (PCR) Not Detected (NotDetected) M. pneumoniae (PCR) Not Detected (NotDetected) Parainfluenza 1 (PCR) Not Detected (NotDetected) Parainfluenza 2 (PCR) Not Detected (NotDetected) Parainfluenza 3 (PCR) Not Detected (NotDetected) Parainfluenza 4 (PCR) Not Detected (NotDetected) RSV (PCR) Not Detected (NotDetected) Entero/Rhino (PCR) Not Detected (NotDetected) Administered Medications Discontinued Medications Sodium Chloride (Nss) 1,000 mls @ 999 mls/hr IV .Q1H1M ONE Stop: 11/13/23 15:54 Last Admin: 11/13/23 14:57 Dose: 999 mls/hr Documented By: BRIANA Ioversol (Optiray 320 125ml) 120 ml IV ONCE ONE Stop: 11/13/23 14:38 Last Admin: 11/13/23 14:37 Dose: 120 ml Documented By: ANTONIO Ondansetron HCl (Ondansetron Inj 2 Mg/Ml 2 Ml Vial) 4 mg IV NOW STA Stop: 11/13/23 14:55 Last Admin: 11/13/23 15:04 Dose: 4 mg Documented By: PR Imaging Data Radiologist's Impression: Chest X-Ray 11/13/23 14:29 XR chest 1V portable HISTORY: 68 years-old Female stroke alert acute strokelike symptoms COMPARISON: 03/20/2017 TECHNIQUE: AP view of the chest FINDINGS: Cardiac silhouette is enlarged. No pneumothorax, pleural effusion, airspace consolidation or pulmonary edema. Bones appear grossly intact. Contrast noted within the renal collecting systems. IMPRESSION: No acute process. ACT 112: Negative or not required by law. The above report was generated using voice recognition software. It may contain grammatical, syntax or spelling errors. Electronically signed by: Paul Bowden M.D. 11/13/2023 3:[address] 11/13/23 14:29 CT head/brain wo con CLINICAL HISTORY: 68 years-old Female with Neuro deficit, acute, stroke suspected. Acutely altered mental status TECHNIQUE: Multiple axial CT images of the head were obtained without contrast. A dose lowering technique was utilized adhering to the principles of ALARA. CT DOSE: 1093.54 mGy.cm COMPARISON: CTA head of same day, 03/20/2020 brain MRI FINDINGS: No acute intracranial hemorrhage, midline shift, intracranial mass, hydrocephalus, territorial ischemia or abnormal extra-axial collection. Involutional changes with advanced chronic microvascular ischemic disease. 7 mm focal hypodensity involves the anterior limb of the right internal capsule and 12 series 2, unchanged from prior MRI. The calvarium is intact. Mastoid air cells are clear. Mild mucosal thickening of the paranasal sinuses. Right nasal turbinate polypoid mucosal thickening measures 1.4 cm. IMPRESSION: 1. No acute intracranial hemorrhage, midline shift or acute territorial infarct. 2. Involutional changes with advanced chronic microvascular ischemic disease. ACT 112: Negative or not required by law. The above report was generated using voice recognition software. It may contain grammatical, syntax or spelling errors. Electronically signed by: Paul Bowden M.D. 11/13/2023 2:50 PM Head CTA 11/13/23 14:29 CT angio head w con, CT angio neck with con CLINICAL HISTORY: 68 years-old Female with aphasia; confusion. Acute stroke like symptoms COMPARISON STUDY: Head CT of same day, brain MRI 06/15/2022 TECHNIQUE: Following the IV administration of 120 cc of Optiray, CT angiogram of the head and neck was performed from the aortic arch to the skull apex. Images are reviewed in the axial, sagittal, and coronal planes. 3-D MIPS images are created and assessed. IV contrast was administered without complication. All measurements were obtained according to NASCET criteria. A dose lowering technique was utilized adhering to the principles of ALARA. FINDINGS: CT ANGIOGRAM OF THE HEAD AND NECK: Four vessel morphology of the thoracic arch. Patency of the innominate and image subclavian arteries. Common and internal carotid arteries are patent. Imaged bilateral internal carotid arteries are patent. The bilateral anterior and middle cerebral arteries are also patent. The vertebrobasilar system and posterior cerebral arteries are widely patent. There is no aneurysm, high-grade stenosis, or proximal branch occlusion identified. Dural sinuses appear patent. Lung apices appear clear. No pneumothorax. Atrophic thyroid. Unremarkable soft tissues. Polypoid mucosal thickening of the right nasal turbinates. Degenerative changes of the cervical spine. Involutional changes with advanced chronic microvascular ischemic disease. IMPRESSION: Unremarkable CTA of the head and neck. ACT 112: Negative or not required by law. The above report was generated using voice recognition software. It may contain grammatical, syntax or spelling errors. Electronically signed by: Paul Bowden M.D. 11/13/2023 3:00 PM Neck CTA 11/13/23 14:29 CT angio head w con, CT angio neck with con CLINICAL HISTORY: 68 years-old Female with aphasia; confusion. Acute stroke like symptoms COMPARISON STUDY: Head CT of same day, brain MRI 06/15/2022 TECHNIQUE: Following the IV administration of 120 cc of Optiray, CT angiogram of the head and neck was performed from the aortic arch to the skull apex. Images are reviewed in the axial, sagittal, and coronal planes. 3-D MIPS images are created and assessed. IV contrast was administered without complication. All measurements were obtained according to NASCET criteria. A dose lowering technique was utilized adhering to the principles of ALARA. FINDINGS: CT ANGIOGRAM OF THE HEAD AND NECK: Four vessel morphology of the thoracic arch. Patency of the innominate and image subclavian arteries. Common and internal carotid arteries are patent. Imaged bilateral internal carotid arteries are patent. The bilateral anterior and middle cerebral arteries are also patent. The vertebrobasilar system and posterior cerebral arteries are widely patent. There is no aneurysm, high-grade stenosis, or proximal branch occlusion identified. Dural sinuses appear patent. Lung apices appear clear. No pneumothorax. Atrophic thyroid. Unremarkable soft tissues. Polypoid mucosal thickening of the right nasal turbinates. Degenerative changes of the cervical spine. Involutional changes with advanced chronic microvascular ischemic disease. IMPRESSION: Unremarkable CTA of the head and neck. ACT 112: Negative or not required by law. The above report was generated using voice recognition software. It may contain grammatical, syntax or spelling errors. Electronically signed by: Paul Bowden M.D. 11/13/2023 3:00 PM Discharge Plan Visit Data Chief Complaint: Neuro Symptoms/Deficit Stated Complaint: APHASIA, ALTERED MENTAL STATUS, WEAKNESS ED Provider: Alanna Kilpatrick Discharge Problem: Acute confusion, Expressive aphasia, Leukocytosis, Vomiting, Headache Forms Stand Alone Forms: My [facility] Prescriptions Prescriptions: No Action thyroid (pork) 60 mg tablet 60 mg PO HS Qty: 90 3RF escitalopram oxalate [Lexapro] 10 mg tablet 10 mg PO DAILY Medical Marijuana 1 dose PO DIRECTED PRN (Reason: Pain) ergocalciferol (vitamin D2) 1,250 mcg (50,000 unit) capsule 50,000 unit PO WK Rx Instructions: Caregiver unsure of the day that pt takes this medication [id number] [Fioricet] 50-300-40 mg capsule 0 cap PO Q8H PRN (Reason: migraines and pain) Rx Instructions: Caregiver unsure of this medication at this date/time. Original Directions: 1 tablet by mouth every 8 hours as needed for migrains and pain Referrals Referrals: Ese Reeder MD [Primary Care Provider] -
[2023-11-13 14:49] LABS: iSTAT Creatinine 0.4 mg/dl (0.6-1.3); iSTAT Hemoglobin 15.3 g/dl (12.0-16.0); iSTAT Ionized Calcium 1.06 mmol/l (1.12-1.32); iSTAT Potassium 4.1 mmol/L (3.3-5.0)
[2023-11-13 14:51] LABS: Hematocrit (blood only) 44.2 % (37.0-47.0); Hemoglobin 15.3 g/dl (12.0-16.0); Mean Corpuscular Hemoglobin 29.7 pg (25.0-34.0); Mean Corpuscular Hgb Conc 34.6 g/dL (32.0-36.0); Mean Corpuscular Volume 85.7 fL (80.0-100.0); Mean Platelet Volume 9.9 fL (9.4-12.4); Platelet Count 533 K/uL (130-400); RDW Coefficient of Variation 13.3 % (11.5-14.5); RDW Standard Deviation 41.3 fL (36.4-46.3); Red Blood Count 5.16 M/uL (4.20-5.40); White Blood Count 15.77 K/ul (4.8-10.8)
--- NOTE | 2023-11-13 14:52 | CT Scan Report ---
CT head/brain wo con CLINICAL HISTORY: 68 years-old Female with Neuro deficit, acute, stroke suspected. Acutely altered m ental status TECHNIQUE: Multiple axial CT images of the head were obtained without contrast. A dose lowering tech nique was utilized adhering to the principles of ALARA. CT DOSE: 1093.54 mGy.cm COMPARISON: CTA head of same day, 03/20/2020 brain MRI FINDINGS: No acute intracranial hemorrhage, midline shift, intracranial mass, hydrocephalus, territorial ischem ia or abnormal extra-axial collection. Involutional changes with advanced chronic microvascular ische sussy disease. 7 mm focal hypodensity involves the anterior limb of the right internal capsule and 12 s eries 2, unchanged from prior MRI. The calvarium is intact. Mastoid air cells are clear. Mild mucosal thickening of the paranasal sinus es. Right nasal turbinate polypoid mucosal thickening measures 1.4 cm. IMPRESSION: 1. No acute intracranial hemorrhage, midline shift or acute territorial infarct. 2. Involutional changes with advanced chronic microvascular ischemic disease. ACT 112: Negative or not required by law. The above report was generated using voice recognition software. It may contain grammatical, syntax o r spelling errors. Electronically signed by: Paul Bowden M.D. 11/13/2023 2:50 PM
[2023-11-13] MEDS: SODIUM CHLORIDE 0.9% 1,000 ML IV ONE (14:57)
[2023-11-13 15:01] LABS: Albumin Level 4.6 gm/dl (3.4-5.0); Anion Gap 13 (3-11); Bilirubin,Total 0.6 mg/dl (0.2-1.0); Calcium 9.9 mg/dl (8.6-10.3); Carbon Dioxide 21 mmol/L (21-32); Chloride 102 mmol/L (98-107); Potassium 3.6 mmol/L (3.5-5.1); Sodium 136 mmol/L (136-145)
--- NOTE | 2023-11-13 15:02 | XRay Report ---
XR chest 1V portable HISTORY: 68 years-old Female stroke alert acute strokelike symptoms COMPARISON: 03/20/2017 TECHNIQUE: AP view of the chest FINDINGS: Cardiac silhouette is enlarged. No pneumothorax, pleural effusion, airspace consolidation or pulmonar y edema. Bones appear grossly intact. Contrast noted within the renal collecting systems. IMPRESSION: No acute process. ACT 112: Negative or not required by law. The above report was generated using voice recognition software. It may contain grammatical, syntax o r spelling errors. Electronically signed by: Paul Bowden M.D. 11/13/2023 3:00 PM
--- NOTE | 2023-11-13 15:02 | CT Scan Report ---
CT angio head w con, CT angio neck with con CLINICAL HISTORY: 68 years-old Female with aphasia; confusion. Acute stroke like symptoms COMPARISON STUDY: Head CT of same day, brain MRI 06/15/2022 TECHNIQUE: Following the IV administration of 120 cc of Optiray, CT angiogram of the head and neck wa s performed from the aortic arch to the skull apex. Images are reviewed in the axial, sagittal, and c oronal planes. 3-D MIPS images are created and assessed. IV contrast was administered without complic ation. All measurements were obtained according to NASCET criteria. A dose lowering technique was uti lized adhering to the principles of ALARA. FINDINGS: CT ANGIOGRAM OF THE HEAD AND NECK: Four vessel morphology of the thoracic arch. Patency of the innominate and image subclavian arteries. Common and internal carotid arteries are patent. Imaged bilateral internal carotid arteries are iqbal nt. The bilateral anterior and middle cerebral arteries are also patent. The vertebrobasilar system a nd posterior cerebral arteries are widely patent. There is no aneurysm, high-grade stenosis, or proxi mal branch occlusion identified. Dural sinuses appear patent. Lung apices appear clear. No pneumothorax. Atrophic thyroid. Unremarkable soft tissues. Polypoid muco anuj thickening of the right nasal turbinates. Degenerative changes of the cervical spine. Involutiona l changes with advanced chronic microvascular ischemic disease. IMPRESSION: Unremarkable CTA of the head and neck. ACT 112: Negative or not required by law. The above report was generated using voice recognition software. It may contain grammatical, syntax o r spelling errors. Electronically signed by: Paul Bowden M.D. 11/13/2023 3:00 PM
[2023-11-13 15:03] LABS: INR 1.1 (0.9-1.1); Partial Thromboplastin Ratio 0.9; Partial Thromboplastin Time 25 Seconds (21-31); Prothrombin Time 11.5 Seconds (9.0-12.0)
[2023-11-13] MEDS: ONDANSETRON INJ 2 MG/ML 2 ML VIAL IV STA (15:04)
[2023-11-13 15:07] LABS: Alanine Aminotransferase 13 U/L (7-52); Albumin Globulin Ratio 1.3 (0.9-2); Alkaline Phosphatase 87 U/L (34-104); Aspartate Aminotransferase 21 U/L (13-39); BUN Creatinine Ratio 24.6 (10-20); Blood Urea Nitrogen 14 mg/dl (6-23); Est GFR (African American) 109.6 ml/min; Est GFR (Non-African American) 94.6 ml/min; Globulin 3.5 gm/dl (2.5-4.0); Glucose 126 mg/dl (70-99(Fasting)); Total Protein 8.1 gm/dl (6.0-8.3)
[2023-11-13 15:52] LABS: Adenovirus PCR Not Detected (NotDetected); Bordetella parapertussis PCR Not Detected (NotDetected); Bordetella pertussis PCR Not Detected (NotDetected); Chlamydia pneumoniae PCR Not Detected (NotDetected); Coronavirus 229E PCR Not Detected (NotDetected); Coronavirus CoV-2 (COVID19)PCR Not Detected (NotDetected); Coronavirus HKU1 PCR Not Detected (NotDetected); Coronavirus NL63 PCR Not Detected (NotDetected); Coronavirus OC43PCR Not Detected (NotDetected); Human Metapneumovirus PCR Not Detected (NotDetected); Influenza A PCR Not Detected (NotDetected); Influenza B PCR Not Detected (NotDetected); Mycoplasma pneumoniae PCR Not Detected (NotDetected); Parainfluenza Virus 1 PCR Not Detected (NotDetected); Parainfluenza Virus 2 PCR Not Detected (NotDetected); Parainfluenza Virus 3 PCR Not Detected (NotDetected); Parainfluenza Virus 4 PCR Not Detected (NotDetected); Respiratory Syncytial VirusPCR Not Detected (NotDetected); Rhinovirus/Enterovirus PCR Not Detected (NotDetected)
[2023-11-13 16:06] LABS: Appearance Urine Clear (Clear); Bacteria Urine Automated None Seen (None Seen); Bilirubin Urine Negative (Negative); Blood Urine Negative (Negative); Cast Urine Automated 0-2 /lpf (0-2); Color Urine Yellow; Epithelial Cell Urine Auto 0-2 /hpf (0-2); Glucose Urine UA Negative (Negative); Ketones Urine 1+ (Negative); Leukocyte Esterase Urine Negative (Negative); Nitrite Urine Negative (Negative); Protein Urine Trace (Negative); RBC Urine Automated 0-2 /hpf (0-2); Specific Gravity Urine > 1.045 (1.000-1.030); Urobilinogen Urine Negative (Negative); WBC Urine Automated 0-5 /hpf (0-5); pH Urine 8.5 (4.5-7.5)
[2023-11-13] MEDS: LORazepam 1 MG/1 ML SYR ED Inj Use IV STA (16:47)
--- NOTE | 2023-11-13 17:47 | History & Physical Report ---
Date of Service November 13, 2023 Assessment & Plan (1) Acute CVA (cerebrovascular accident): Plan: Significant receptive and expressive dysphasia Unable to give PO meds due to failed swallow screen - SLT consult tomorrow NPO, IV fluids On discussion with telestroke neurologist at [facility] following brain MRI recommended aspirin or clopidogrel and atorvastatin Since NPO will give aspirin 300mg OR, defer ongoing doses pending SLT consult TTE Lipid panel and HbA1C with AM labs IV fluids while NPO Consult neurology (2) CADASIL (cerebral autosomal dominant arteriopathy with subcortical infarcts and leukoencephalopathy): (3) Headache: Plan: Acetaminophen PRN - difficult to tell if truely having ongoing headache as unable to adequately take history from patient (4) Vomiting: Plan: Ondansetron PRN Consider famotidine if further vomiting (Hx of GERD in EHR) (5) Hypothyroid: Plan: TSH with AM labs Restart thyroid medication once able to take oral meds Plan VTE Prophylaxis - deferred chemical prophylaxis on admission due to allergies listed and history of GI bleeds Diet - NPO Disposition - admit to PCU Admission and Anticipated Discharge Date Admission Date: November 13, 2023 History of Present Illness Chief Complaint: Confusion, difficulty speaking Primary Care Provider: Ese Reeder MD Angeles Kruger is a 68 year old female with CADASIL (cerebral autosomal dominant arteriopathy with subcortical infarcts and leukoencephalopathy) and recurrent strokes/TIAs who presents to the ER with receptive and expressive dysphasia. Unable to get any history from the patient as she just says yes and no - possibly appropriately but also inappropriately to questions. Patient's no longer at bedside but from ER provider and triage notes she has had a headache and confusion starting around 9pm last night with vomiting throughout the night. Allergies Allergy/AdvReac Type Severity Reaction Status Date / Time argatroban Allergy Severe Unknown Verified 11/13/23 15:35 dabigatran etexilate Allergy Severe Unknown Verified 11/13/23 15:35 [From Pradaxa] vancomycin Allergy Severe RASH Verified 11/13/23 15:35 cat dander Allergy Unknown Unknown Verified 11/13/23 15:35 dog dander Allergy Unknown Unknown Verified 11/13/23 15:35 doxycycline Allergy Unknown RASH,VOMITT Verified 11/13/23 15:35 ING erythromycin base Allergy Unknown rash Verified 11/13/23 15:35 grass pollen Allergy Unknown Unknown Verified 11/13/23 15:35 horse dander Allergy Unknown Unknown Verified 11/13/23 15:35 apixaban AdvReac Severe Life-threatening Verified 11/13/23 15:35 ADR to ALL anticoagulants (Dx: CADASIL) edoxaban AdvReac Severe Life-threatening Verified 11/13/23 15:35 ADR to ALL anticoagulants (Dx: CADASIL) enoxaparin AdvReac Severe Life-threatening Verified 11/13/23 15:35 ADR to ALL anticoagulants (Dx: CADASIL) heparin AdvReac Severe Life-threatening Verified 11/13/23 15:35 ADR to ALL anticoagulants (Dx: CADASIL) rivaroxaban AdvReac Severe Life-threatening Verified 11/13/23 15:35 ADR to ALL anticoagulants (Dx: CADASIL) sodium citrate AdvReac Severe Life-threatening Verified 11/13/23 15:35 ADR to ALL anticoagulants (Dx: CADASIL) warfarin AdvReac Severe Life-threatening Verified 11/13/23 15:35 ADR to ALL anticoagulants (Dx: CADASIL) naproxen AdvReac Intermediate elevated BP Verified 11/13/23 15:35 acetaminophen [From Vicodin] AdvReac Unknown vomiting Verified 11/13/23 15:35 hydrocodone [From Vicodin] AdvReac Unknown Vomiting Verified 11/13/23 15:35 Dust Allergy Unknown Unknown Uncoded 11/13/23 15:35 Home Medications Medication Instructions Recorded Confirmed Type Medical Marijuana 1 dose PO DIRECTED PRN Pain 05/08/22 11/13/23 History escitalopram oxalate 10 mg tablet 10 mg PO DAILY 03/03/23 11/13/23 History (Lexapro) thyroid (pork) 60 mg tablet 60 mg PO HS #90 tabs 03/26/23 11/13/23 Rx [id number] 0 cap PO Q8H PRN migraines and pain 11/13/23 11/13/23 History 50 mg-300 mg-40 mg capsule (Fioricet) ergocalciferol (vitamin D2) 1,250 50,000 unit PO WK 11/13/23 11/13/23 History mcg (50,000 unit) capsule Past Med/Surg History Problem List (Updated 11/13/23 @ 20:52 by Wayne Jorgensen MD) Acute CVA (cerebrovascular accident) Headache (Acute) Vomiting (Acute) Leukocytosis (Acute) Expressive aphasia (Acute) Acute confusion (Acute) Sciatica Dry skin dermatitis Vitamin B 12 deficiency Vitamin D deficiency Meralgia paresthetica of left side Chronic abdominal pain Encounter for examination following treatment at hospital Routine health maintenance Encounter for pre-operative examination Asthma (Chronic) Primary hypothyroidism (Acute) Fatigue (Acute) Classic migraine with aura (Acute) Chronic daily headache (Acute) Chronic cerebral ischemia (Acute) CADASIL (cerebral autosomal dominant arteriopathy with subcortical infarcts and leukoencephalopathy) (Acute) Atypical migraine (Acute) Depression with anxiety (Acute) Cognitive impairment Low back pain Transient alteration of awareness Colitis (Acute) Hypothyroid CADASIL Medical History Chronic abdominal pain Blood in stool Colitis Classic migraine with aura Chronic cerebral ischemia GERD (gastroesophageal reflux disease) Hypothyroidism Transient ischemic attack (TIA) CADASIL Hyperlipidemia Depression with anxiety Asthma Surgical History History of tonsillectomy History of tooth extraction Jber teeth extracted History of esophagogastroduodenoscopy (EGD) History of colonoscopy Family History Father CADASIL (cerebral AD arteriopathy w infarcts and leukoencephalopathy) Mother Stroke Diabetes Breast cancer Aunt Breast cancer Social History Smoking Status: Never smoker Second Hand Exposure: No; Do You Dip or Chew Tobacco: No; Hx Alcohol Use: No Hx Substance Use: Yes Non-Prescribed Medications: Marijuana Last Used Substance: Days (ago) Last Used Substance Other:: 11/12/23 Substance Use Type Other:: medical card > daily use Preferred Language: Montenegrin Communication Ability: Impaired Visual Impairment: Limited Hearing Ability: Normal Department Chair Required: No Beliefs That Will Affect Care: None marital status: Current Living Situation: Spouse Current Living Situation Comment: with current occupational status: retired How many Children do You have: 2 Other Information That Helps Us Care for You: No Feels Safe at Home: No Is there a partner from a previous relationship who is making you feel unsafe now?: No Any Concerns about Your Family Situation: No Would You Like to Speak to Someone About Your Situation: No Safety Concerns: Feels Safe At This Time Childhood Exposure to Second-Hand Smoke: No Diet: regular caffeine: Yes (coffee and tea ) during the past year weight has: remained stable Dental Care, Regularly: Yes Physical Activity Frequency: Does not Exercise Seatbelt Use: always Sunscreen Use: No Do you think of yourself as: straight/heterosexual Gender Identity: Female Assistive Devices: None Review of Systems Review of Systems: All systems reviewed & are unremarkable except as noted in HPI & below Physical Exam Constitutional: well developed; + not well nourished and no acute distress Eyes: PERRL Respiratory: normal respiratory effort, lungs clear to auscultation Cardiovascular: RRR, no murmur, no edema Gastrointestinal (Abdomen): normal bowel sounds, soft, nontender, no hepatosplenomegaly Skin: no rashes, warm and dry (no areas of cellulitis noted) Neurologic: moves all extremities and awake Cranial Nerves: PERRL Unable to perform full neurological exam as patient unable to follow even one step commands - replies yes and occasional no possibly appropriately but mostly inappropriately to questions Occasionally yawning during exam but not enough to look in mouth or analyze tongue deviation Psychiatric: Orientation: alert; + not oriented x 3 Results & Data Results & Data Vital Signs (Past 12 Hours) Vital Signs Pulse Resp BP Pulse Ox O2 Del Method 11/13/23 17:20 79 16 160/81 H 93 Room Air 11/13/23 16:45 148/77 H 11/13/23 16:45 76 19 92 11/13/23 16:40 77 13 95 11/13/23 16:30 136/72 11/13/23 16:30 87 17 94 11/13/23 16:20 87 15 95 11/13/23 16:15 79 19 94 11/13/23 16:15 153/74 H 11/13/23 16:10 79 21 92 11/13/23 16:00 154/82 H 11/13/23 16:00 73 16 92 11/13/23 15:50 79 20 95 11/13/23 15:45 161/81 H 11/13/23 15:45 87 17 11/13/23 15:30 157/77 H 11/13/23 15:20 82 16 11/13/23 15:15 147/80 H 11/13/23 15:15 83 18 97 11/13/23 15:10 86 17 96 11/13/23 15:00 86 18 154/81 H 96 Room Air 11/13/23 14:58 88 11/13/23 14:47 95 H 18 156/77 H 97 Room Air 11/13/23 14:42 Room Air 11/13/23 14:42 Room Air 11/13/23 14:33 85 12 98 11/13/23 14:19 89 18 161/82 H 94 Room Air Laboratory Results Abnormal lab results 11/13/23 11/13/23 11/13/23 Range/Units 14:29 14:35 14:36 WBC 15.77 H (4.8-10.8) K/ul Plt Count 533 H (130-400) K/uL POC Total CO2 (24-31) mmol/L Anion Gap 13 H (3-11) POC Anion Gap (16-25) mmol/L Creatinine 0.57 L (0.6-1.2) mg/dl POC Creatinine (0.6-1.3) mg/dl BUN/Creatinine Ratio 24.6 H (10-20) Glucose 126 H (70-99(Fasting)) mg/dl POC Glucose 137 H (70-99) mg/dl POC Glucose (other) (70-99) mg/dl Lactate (0.4-2.0) mmol/L POC Ioniz Calcium Deonna (1.12-1.32) mmol/l Urine pH (4.5-7.5) Ur Specific [place] (1.000-1.030) Urine Protein (Negative) Urine Ketones (Negative) 11/13/23 11/13/23 11/13/23 Range/Units 14:37 15:45 16:15 WBC (4.8-10.8) K/ul Plt Count (130-400) K/uL POC Total CO2 22 L (24-31) mmol/L Anion Gap (3-11) POC Anion Gap 15.0 L (16-25) mmol/L Creatinine (0.6-1.2) mg/dl POC Creatinine 0.4 L (0.6-1.3) mg/dl BUN/Creatinine Ratio (10-20) Glucose (70-99(Fasting)) mg/dl POC Glucose (70-99) mg/dl POC Glucose (other) 136 H (70-99) mg/dl Lactate 2.1 H* (0.4-2.0) mmol/L POC Ioniz Calcium Deonna 1.06 L (1.12-1.32) mmol/l Urine pH 8.5 H (4.5-7.5) Ur Specific [place] > 1.045 H (1.000-1.030) Urine Protein Trace H (Negative) Urine Ketones 1+ H (Negative) Diagnostic Findings XR chest 1V portable HISTORY: 68 years-old Female stroke alert acute strokelike symptoms COMPARISON: 03/20/2017 TECHNIQUE: AP view of the chest FINDINGS: Cardiac silhouette is enlarged. No pneumothorax, pleural effusion, airspace consolidation or pulmonary edema. Bones appear grossly intact. Contrast noted within the renal collecting systems. IMPRESSION: No acute process. CT head/brain wo con CLINICAL HISTORY: 68 years-old Female with Neuro deficit, acute, stroke s uspected. Acutely altered mental status TECHNIQUE: Multiple axial CT images of the head were obtained without contrast. A dose lowering technique was utilized adhering to the principles of ALARA. CT DOSE: 1093.54 mGy.cm COMPARISON: CTA head of same day, 03/20/2020 brain MRI FINDINGS: No acute intracranial hemorrhage, midline shift, intracranial mass, hydrocephalus, territorial ischemia or abnormal extra-axial collection. Involutional changes with advanced chronic microvascular ischemic disease. 7 mm focal hypodensity involves the anterior limb of the right internal capsule and 12 series 2, unchanged from prior MRI. The calvarium is intact. Mastoid air cells are clear. Mild mucosal thickening of the paranasal sinuses. Right nasal turbinate polypoid mucosal thickening measures 1.4 cm. IMPRESSION: 1. No acute intracranial hemorrhage, midline shift or acute territorial infarct. 2. Involutional changes with advanced chronic microvascular ischemic disease. CT angio head w con, CT angio neck with con CLINICAL HISTORY: 68 years-old Female with aphasia; confusion. Acute stroke like symptoms COMPARISON STUDY: Head CT of same day, brain MRI 06/15/2022 TECHNIQUE: Following the IV administration of 120 cc of Optiray, CT angiogram of the head and neck was performed from the aortic arch to the skull apex. Images are reviewed in the axial, sagittal, and coronal planes. 3-D MIPS images are created and assessed. IV contrast was administered without complication. All measurements were obtained according to NASCET criteria. A dose lowering technique was utilized adhering to the principles of ALARA. FINDINGS: CT ANGIOGRAM OF THE HEAD AND NECK: Four vessel morphology of the thoracic arch. Patency of the innominate and image subclavian arteries. Common and internal carotid arteries are patent. Imaged bilateral internal carotid arteries are patent. The bilateral anterior and middle cerebral arteries are also patent. The vertebrobasilar system and posterior cerebral arteries are widely patent. There is no aneurysm, high-grade stenosis, or proximal branch occlusion identified. Dural sinuses appear patent. Lung apices appear clear. No pneumothorax. Atrophic thyroid. Unremarkable soft tissues. Polypoid mucosal thickening of the right nasal turbinates. Degenerative changes of the cervical spine. Involutional changes with advanced chronic microvascular ischemic disease. IMPRESSION: Unremarkable CTA of the head and neck. MR brain wo con HISTORY: 68 years-old Female aphasia acute shocklike symptoms COMPARISON: Head CT of same day, brain MRI 06/15/2022 TECHNIQUE: Multiplanar multisequence MRI of the brain was obtained without IV contrast FINDINGS: 4 mm focus of restricted diffusion within the subcortical right frontal lobe, image 15 series 4. No acute or subacute territorial infarct. Structures are unremarkable. Partially empty sella. Degenerative changes of the imaged cervical spine. No acute intracranial hemorrhage, midline shift, abnormal extra-axial collection, hydrocephalus or intra-axial mass. Involutional changes with extensive and confluent white matter T2/FLAIR hyperintense foci redemonstrated. Cerebral venous sinuses and major arterial flow voids appear patent. Skull, orbits and soft tissues are unremarkable. Mild polypoid mucosal thickening of the right ethmoid air cells and nasal turbinates. Motion degraded exam. IMPRESSION: 1. 4 mm acute right frontal lobe lacunar infarct. 2. No acute intracranial hemorrhage or midline shift. 3. Involutional changes with extensive chronic microvascular ischemic disease redemonstrated. Medications Administered ER Medications Given: Normal saline 1L bolus Ondansetron 4mg IV Lorazepam 0.25mg IV ECG Rate (beats per minute): 82 Rhythm: normal sinus Findings: no acute ischemic change Comparison ECG Date: from (Jul 30, 2023) Change: no significant change Code Status & VTE Plan Code Status Full VTE Prophylaxis Plan VTE Prophylaxis will be ordered: Yes PG Care Time/CCT Total # of Minutes Spent Total Time Spent with Patient: Total time spent is greater than 50% in coordination of care (as documented) at patient's floor/unit and/or counseling patient: Coding Level of Care Code 69290 INT INP/OBS CARE 3/75MIN Diagnoses Acute CVA (cerebrovascular accident) I63.9 CADASIL (cerebral autosomal dominant arteriopathy with subcortical infarcts and leukoencephalopathy) I67.850 Headache R51.9 Vomiting R11.10 Hypothyroid E03.9
--- NOTE | 2023-11-13 17:47 | Magnetic Resonance Report ---
MR brain wo con HISTORY: 68 years-old Female aphasia acute shocklike symptoms COMPARISON: Head CT of same day, brain MRI 06/15/2022 TECHNIQUE: Multiplanar multisequence MRI of the brain was obtained without IV contrast FINDINGS: 4 mm focus of restricted diffusion within the subcortical right frontal lobe, image 15 series 4. No a cute or subacute territorial infarct. Structures are unremarkable. Partially empty sella. Degenerative changes of the imaged cervical spine . No acute intracranial hemorrhage, midline shift, abnormal extra-axial collection, hydrocephalus or intra-axial mass. Involutional changes with extensive and confluent white matter T2/FLAIR hyperintens e foci redemonstrated. Cerebral venous sinuses and major arterial flow voids appear patent. Skull, orbits and soft tissues a re unremarkable. Mild polypoid mucosal thickening of the right ethmoid air cells and nasal turbinates . Motion degraded exam. IMPRESSION: 1. 4 mm acute right frontal lobe lacunar infarct. 2. No acute intracranial hemorrhage or midline shift. 3. Involutional changes with extensive chronic microvascular ischemic disease redemonstrated. ACT 112: Negative or not required by law. The above report was generated using voice recognition software. It may contain grammatical, syntax o r spelling errors. Electronically signed by: Paul Bowden M.D. 11/13/2023 5:44 PM
[2023-11-13] MEDS ORDERED: PHARMACIST DISCHARGE MED REC CONSULT PRN (21:18)
[2023-11-13] MEDS: ASPIRIN 300 MG SUPP PR ONE (21:53)
[2023-11-13] MEDS: ACETAMINOPHEN 1,000 MG/100 ML VIAL IV PRN (21:53)
[2023-11-13] MEDS: LACTATED RINGER'S 1,000 ML IV SCH (21:54)
[2023-11-13] MEDS: ARMOUR THYROID 30 MG TAB PO SCH (21:58)
[2023-11-14 06:35] LABS: Basophils # (auto) 0.04 K/uL (0.00-0.20); Basophils % (auto) 0.4 %; Eosinophils # (auto) 0.03 K/uL (0.00-0.50); Eosinophils % (auto) 0.3 %; Hematocrit (blood only) 35.7 % (37.0-47.0); Immature Granulocytes # (auto) 0.04 K/uL (0.01-0.20); Immature Granulocytes % (auto) 0.4 %; Lymphocytes # (auto) 1.31 K/uL (1.20-3.40); Lymphocytes % (auto) 11.6 %; Mean Corpuscular Hemoglobin 29.1 pg (25.0-34.0); Mean Corpuscular Hgb Conc 33.6 g/dL (32.0-36.0); Mean Corpuscular Volume 86.7 fL (80.0-100.0); Mean Platelet Volume 10.3 fL (9.4-12.4); Monocytes # (auto) 0.78 K/uL (0.11-0.59); Monocytes % (auto) 6.9 %; Neutrophils # (auto) 9.06 K/uL (1.40-6.50); Neutrophils % (auto) 80.4 %; Platelet Count 425 K/uL (130-400); RDW Coefficient of Variation 13.4 % (11.5-14.5); RDW Standard Deviation 42.5 fL (36.4-46.3); Red Blood Count 4.12 M/uL (4.20-5.40); White Blood Count 11.26 K/ul (4.8-10.8)
[2023-11-14 06:50] LABS: BUN Creatinine Ratio 26.5 (10-20); Calcium 8.7 mg/dl (8.6-10.3); Chol HDL Ratio 3.3 (0-5); Creatinine Clr Calc Pharmacy 97.5 ml/min; Est GFR (African American) 115.2 ml/min; Est GFR (Non-African American) 99.4 ml/min; Potassium 3.3 mmol/L (3.5-5.1)
--- NOTE | 2023-11-14 07:09 | Neurology Consultation ---
Date of Consultation November 14, 2023 Assessment & Plan (1) Acute CVA (cerebrovascular accident): History of Present Illness Attending Physician: Wayne Jorgensen MD History of Present Illness pt this morning feeling better with improved headache. pt sleepy but able to follow command well. mri brain with very small punctate rt frontal ischemic stroke with CTA head/neck negative. pt complaining of headache this morning mostly frontal. pt with hx of migraine and followed by Dr. nicholson in [facility] for CADASIL. pt also with hx of anxiety/depression. I asked her to drink some water this morning and had no problem swallowing and drinking. admission HPI: Patient is a 68-year-old female presenting with confusion. reports that last night around 9 PM the patient started having acute onset of headache. She has vomited multiple times throughout the night. He reports she slept in the room because she kept getting up to vomit. States that this morning when he went to check on the patient she was still complaining of a headache and had difficulties voicing any words. Reports that she is unable to form a sentence. No focal weakness. She states that her confusion is getting worse. She is not on any anticoagulation. Denies any recent fevers. No reported falls or recent head injuries. No recent chiropractic manipulation of her neck. Allergies Allergy/AdvReac Type Severity Reaction Status Date / Time argatroban Allergy Severe Unknown Verified 11/13/23 15:35 dabigatran etexilate Allergy Severe Unknown Verified 11/13/23 15:35 [From Pradaxa] vancomycin Allergy Severe RASH Verified 11/13/23 15:35 cat dander Allergy Unknown Unknown Verified 11/13/23 15:35 dog dander Allergy Unknown Unknown Verified 11/13/23 15:35 doxycycline Allergy Unknown RASH,VOMITT Verified 11/13/23 15:35 ING erythromycin base Allergy Unknown rash Verified 11/13/23 15:35 grass pollen Allergy Unknown Unknown Verified 11/13/23 15:35 horse dander Allergy Unknown Unknown Verified 11/13/23 15:35 apixaban AdvReac Severe Life-threatening Verified 11/13/23 15:35 ADR to ALL anticoagulants (Dx: CADASIL) edoxaban AdvReac Severe Life-threatening Verified 11/13/23 15:35 ADR to ALL anticoagulants (Dx: CADASIL) enoxaparin AdvReac Severe Life-threatening Verified 11/13/23 15:35 ADR to ALL anticoagulants (Dx: CADASIL) heparin AdvReac Severe Life-threatening Verified 11/13/23 15:35 ADR to ALL anticoagulants (Dx: CADASIL) rivaroxaban AdvReac Severe Life-threatening Verified 11/13/23 15:35 ADR to ALL anticoagulants (Dx: CADASIL) sodium citrate AdvReac Severe Life-threatening Verified 11/13/23 15:35 ADR to ALL anticoagulants (Dx: CADASIL) warfarin AdvReac Severe Life-threatening Verified 11/13/23 15:35 ADR to ALL anticoagulants (Dx: CADASIL) naproxen AdvReac Intermediate elevated BP Verified 11/13/23 15:35 acetaminophen [From Vicodin] AdvReac Unknown vomiting Verified 11/13/23 15:35 hydrocodone [From Vicodin] AdvReac Unknown Vomiting Verified 11/13/23 15:35 Dust Allergy Unknown Unknown Uncoded 11/13/23 15:35 Home Medications Medication Instructions Recorded Confirmed Type Medical Marijuana 1 dose PO DIRECTED PRN Pain 05/08/22 11/13/23 History escitalopram oxalate 10 mg tablet 10 mg PO DAILY 03/03/23 11/13/23 History (Lexapro) thyroid (pork) 60 mg tablet 60 mg PO HS #90 tabs 03/26/23 11/13/23 Rx urajkctbal-lkettqhvsciso-dqumwupv 0 cap PO Q8H PRN migraines and pain 11/13/23 11/13/23 History 50 mg-300 mg-40 mg capsule (Fioricet) ergocalciferol (vitamin D2) 1,250 50,000 unit PO WK 11/13/23 11/13/23 History mcg (50,000 unit) capsule Patient History Medical History Chronic abdominal pain Blood in stool Colitis Classic migraine with aura Chronic cerebral ischemia GERD (gastroesophageal reflux disease) Hypothyroidism Transient ischemic attack (TIA) CADASIL Hyperlipidemia Depression with anxiety Asthma Surgical History History of tonsillectomy History of tooth extraction [place] teeth extracted History of esophagogastroduodenoscopy (EGD) History of colonoscopy Family History Father CADASIL (cerebral AD arteriopathy w infarcts and leukoencephalopathy) Mother Stroke Diabetes Breast cancer Aunt Breast cancer Social History Smoking Status: Never smoker Second Hand Exposure: No; Do You Dip or Chew Tobacco: No; Hx Alcohol Use: No Hx Substance Use: Yes Non-Prescribed Medications: Marijuana Last Used Substance: Days (ago) Last Used Substance Other:: 11/12/23 Substance Use Type Other:: medical card > daily use Preferred Language: Liberian Communication Ability: Impaired Visual Impairment: Limited Hearing Ability: Normal Performance Engineer Required: No Beliefs That Will Affect Care: None marital status: Current Living Situation: Spouse Current Living Situation Comment: with current occupational status: retired How many Children do You have: 2 Other Information That Helps Us Care for You: No Feels Safe at Home: No Is there a partner from a previous relationship who is m aking you feel unsafe now?: No Any Concerns about Your Family Situation: No Would You Like to Speak to Someone About Your Situation: No Safety Concerns: Feels Safe At This Time Childhood Exposure to Second-Hand Smoke: No Diet: regular caffeine: Yes (coffee and tea ) during the past year weight has: remained stable Dental Care, Regularly: Yes Physical Activity Frequency: Does not Exercise Seatbelt Use: always Sunscreen Use: No Do you think of yourself as: straight/heterosexual Gender Identity: Female Assistive Devices: None Review of Systems Review of Systems: All systems reviewed & are unremarkable except as noted in Subjective Constitutional: as per Subjective / HPI Eyes: as per Subjective / HPI Ear, Nose, Mouth, Throat: as per Subjective / HPI Respiratory: as per Subjective / HPI Cardiovascular: as per Subjective / HPI Gastrointestinal: as per Subjective / HPI Musculoskeletal: as per Subjective / HPI Integumentary: as per Subjective / HPI Neurologic: as per Subjective / HPI Psychiatric: as per Subjective / HPI Endocrine: as per Subjective / HPI Hematologic / Lymphatic: as per Subjective / HPI Allergy / Immunological: as per Subjective / HPI Exam (Neuro) Physical Exam: HEENT: normocephalic Neuro: Mental: Alert and follows command but there is definitely fluctuation of her effort to participate and at times intentional speech problem as when she is prompt and occasional speaks in full sentence and when testing, she seems to hesitate to answer questions. pt was able to tell me her name, month and when asked year, she replied not sure. when she was distracted, she softly spoke in full sentences, normal comprehension, no apraxia, no L/R confusion, no neglect CN: PERRL, Full EOM, symmetric face, midline T/U/P, 5/5 SCM/traps. noted white thrush in her mouth. Motor: No abnormal movements, normal tone. intact strength t/o grossly, limited exam as pt does not want to participate Sens: intact to touch b/l grossly Coord: intact upper limbs. DTR: 2+ sym b/l Gait: deferred. Impression: 68 yo female with hx of CADASIL with small punctate acute ischemic stroke on rt frontal area with somewhat functional exam with apparently dysphagia (now seemed to have resolved) and expressive nonfluent aphasia (with inconsistent exam findings and functional appearing). pt with hx of migraine and anxiety/depression. Her mri brain finding should not cause her to have speech problem or aphasia or dysphagia. it is unclear as to why she is having these symptoms. It is reassuring that her exam is much improved. I feel that she likely had complicated migraine symptoms initially and now resolving with consideration for somatoform disorder vs psychological contribution. Recommendations: 1. Standard stroke work up as planned 2. antiplatelet therapy: it appears pt c an swallow now, do trial of bedside pill swallow and start DAPT for 21 days. * DAPT (dual antiplatelet therapy): start for pts with ABCD2 score 4 or higher. Initial loading dose with ASA 325mg and Plavix 300mg (if pt has not been started), then ASA 81mg daily and Plavix 75mg daily. Continue DAPT for 21 days if found small vessel disease only or continue for 90 days if found to have intracranial large artery atherosclerosis. After that, can continue single antiplatelet therapy (either ASA or Plavix). 3. Images: TTE with bubble 4. Permissive Hypertension for next 24 hrs. Keep SBP goal range less than 220. Avoid hypotension. Do not stop beta-jerald if on it. 6. Long-term SBP goal less than 130. 7. Plenty of hydration including IV flui d if possible (use isotonic solution) next 1-2 days. Avoid hypovolemia and hypotension. 8. Initiate DVT prevention therapy. 9. Avoid hypoglycemia, serum glucose goa l during hospitalization: 140-180. 10. Long-term HgA1c goal less than 7. 11. Start statin if not on it and no abs olute contraindication, long-term LDL goal less than 70. 12. Head of bed up 30 degrees if possibl e. 14. Telemetry monitoring. Consider adjunct faculty for medical terminology cardiac monitoring, i.e. MCOT (m obile cardiac outpatient telemetry) or ICM (insertable media monitor, e.g. LINQ), if never had adjunct faculty for medical terminology cardiac monitoring done previously. And if found to have atrial flutter or fibrillation, should consider anticoagulation therapy if no contraindication. 16. Consult physical and occupational th erapy and speech path evaluation. 17. consider psych consultation also. -as for her headache treatment, options are: Mg 1gm IV slow infusion over 1 hr, or trial of IV solumderol 250mg x1. Anti-emetic can also be used. would avoid triptans and vasoconstricting meds given her history. Chart reviewed I have spent more than 50% educating patient about potential diagnosis and neurological evaluation and coordinating care with patient's treatment team. Total time spent (including chart review and coordination of care): 60 min (this includes chart review). Results & Data Vital Signs (Past 12 Hours) Vital Signs Temp Pulse Pulse Resp BP BP Pulse Ox 11/14/23 02:51 36.8 C 85 18 141/72 H 95 11/13/23 22:00 81 11/13/23 21:34 37.7 C H 73 18 142/76 H 94 11/13/23 21:32 11/13/23 21:19 72 11/13/23 20:50 70 21 93 11/13/23 20:40 73 22 91 11/13/23 20:30 91 H 16 90 11/13/23 20:20 70 24 93 11/13/23 20:10 66 19 93 11/13/23 20:00 140/86 11/13/23 20:00 69 23 92 11/13/23 19:50 67 24 93 11/13/23 19:40 66 20 92 11/13/23 19:30 63 20 93 11/13/23 19:20 62 20 92 11/13/23 19:10 65 20 91 O2 Del Method O2 Flow Rate 11/14/23 02:51 Nasal Cannula 2 11/13/23 22:00 11/13/23 21:34 Nasal Cannula 2 11/13/23 21:32 Nasal Cannula 2 11/13/23 21:19 11/13/23 20:50 11/13/23 20:40 11/13/23 20:30 11/13/23 20:20 11/13/23 20:10 11/13/23 20:00 11/13/23 20:00 11/13/23 19:50 11/13/23 19:40 11/13/23 19:30 11/13/23 19:20 11/13/23 19:10 PG Care Time/CCT Total # of Minutes Spent Total Time Spent with Patient: Total time spent is greater than 50% in coordination of care (as documented) at patient's floor/unit and/or counseling patient: Coding Level of Care Code 97486 IN/OBS CONSULT LVL 4,60M Diagnoses Acute CVA (cerebrovascular accident) I63.9
[2023-11-14 07:17] LABS: Estimated Average Glucose 120 mg/dl; Hemoglobin A1C 5.8 % (4.5-5.6)
--- NOTE | 2023-11-14 07:45 | Hospitalist Progress Note ---
Date of Service November 14, 2023 Assessment & Plan (1) Acute CVA (cerebrovascular accident): Plan: 68 y/o woman history of TIA, CADASIL, migraine with aura and chronic headaches presented with confusion, vomiting, difficulty speaking following a headache that started around 9 pm. Found to have tiny right frontal infarct on brain MRI but does not correlate with presenting symptoms. Symptomatically improved over first night but still has aphasia, decreased speech output. Found to have 4 mm right frontal CVA on brain MRI. CTA head/neck unremarkable Symptoms include expressive aphasia and dysphagia, exam by neurologist inconsistent/functional AM of 11/13 -neurology consulted - reviewed recs - thought to be most likely complex migraine symptoms, consideration for somatoform disorder, toxic encephalopathy ( medical cannabis use) -standard stroke evaluation and 21 days DAPT with loading dose recommended, continue ASA or Plavix alone after that -24h permissive hypertension -failed swallow screen last night though swallowed without difficulty this am - ST consult -TTE c bubble pending -tele monitoring -A1c 5.8%, lipid panel LDL goal<70 -PT/OT/ST (2) CADASIL (cerebral autosomal dominant arteriopathy with subcortical infarcts and leukoencephalopathy): Plan: per Dr. Naranjo's note 11/30/2022: "CADASIL is a long-term diagnosis. Per patient has had confirmatory neuroimaging, genetic testing and has been followed by neurology here, previously evaluated at [facility]. Current associated symptoms include TIA- like symptoms maybe once a month, intermittent migraines and occasional cognition issues with difficulty learning new materials and intermittent numbness in her digits." Did not respond to trial of nifedipine last visit with Dr. Chairez 09/21/2022 he encouraged her to take 81 mg aspirin regularly for stroke prevention, she declined however because she had recent colonic bleed and was worried about recurrent GI bleeding per outpatient notes she reported a TIA-like event approximately monthly (3) Headache: Plan: History of migraine with aura. Presenting symptoms possibly related to complex migraine will treat for acute migraine with IV magnesium and Solu-Medrol per neurology Kelby as she appears to be currently symptomatic Per neurology recs avoid triptan/vasoconstricting meds if above treatment fails would try 500 mg IV Depakote, antiemetics may also be helpful (4) Vomiting: Plan: Ondansetron PRN (5) Hypothyroid: Plan: TSH pending Restart thyroid medication Plan Hypokalemia - still npo so replace IV. AM BMP Chronic medical problems: B12 deficiency Chronic abdominal pain Asthma Migraine with aura, chronic daily headache Cognitive impairment Depression with anxiety - cont celexa VTE Prophylaxis - deferred chemical prophylaxis on admission due to allergies listed and history of GI bleeds - I do not see a contraindication to DVT prophylaxis and she will benefit if remaining hospitalized more than one night Diet - NPO pending ST/swallow Disposition - transfer to med/surg with tele I updated her Cain by phone today Admission and Anticipated Discharge Date Admission Date: November 13, 2023 Subjective remains aphasic will only say a short phrase for me, appears to understand and nods yes no to questions appropriately holding hand over left eye, endorses headache. unclear whether still nauseated Physical Exam 2 Physical Exam: PHYSICAL EXAMINATION Last 24h vital signs reviewed, see documentation in flowsheet General: holding hand over left eye left frontal part of head, appears frustrated HEENT: Normocephalic, atraumatic, pupils round and equal, sclerae anicteric, no conjunctival injection, moist mucus membranes Lungs: Normal respiratory effort. Clear to auscultation bilaterally. No RRW Heart: Regular rate and rhythm, no murmurs. No JVD Abdomen: Soft, nontender, nondistended. Bowel sounds present. Extremities: Warm, dry, well-perfused. No extremity edema. Neuro: Alert, halting speech and seems stuck on 1 phrase, answers straightforward yes/no questions , face symmetric, moves 4 extremities well Psych: Normal affect and behavior Results & Data Results & Data Vital Signs (Past 12 Hours) Vital Signs Temp Pulse Pulse Resp BP BP Pulse Ox 11/14/23 02:51 36.8 C 85 18 141/72 H 95 11/13/23 22:00 81 11/13/23 21:34 37.7 C H 73 18 142/76 H 94 11/13/23 21:32 11/13/23 21:19 72 11/13/23 20:50 70 21 93 11/13/23 20:40 73 22 91 11/13/23 20:30 91 H 16 90 11/13/23 20:20 70 24 93 11/13/23 20:10 66 19 93 11/13/23 20:00 140/86 11/13/23 20:00 69 23 92 11/13/23 19:50 67 24 93 11/13/23 19:40 66 20 92 11/13/23 19:30 63 20 93 O2 Del Method O2 Flow Rate 11/14/23 02:51 Nasal Cannula 2 11/13/23 22:00 11/13/23 21:34 Nasal Cannula 2 11/13/23 21:32 Nasal Cannula 2 11/13/23 21:19 11/13/23 20:50 11/13/23 20:40 11/13/23 20:30 11/13/23 20:20 11/13/23 20:10 11/13/23 20:00 11/13/23 20:00 11/13/23 19:50 11/13/23 19:40 11/13/23 19:30 Laboratory Results 11/14/23 05:38 11/14/23 05:38 PG Care Time/CCT Total # of Minutes Spent Total Time Spent with Patient: Total time spent is greater than 50% in coordination of care (as documented) at patient's floor/unit and/or counseling patient: Coding Level of Care Code 41916 SUB INP/OBS CARE 3/50MIN Diagnoses Acute CVA (cerebrovascular accident) I63.9 CADASIL (cerebral autosomal dominant arteriopathy with subcortical infarcts and leukoencephalopathy) I67.850 Headache R51.9 Vomiting R11.10 Hypothyroid E03.9
--- NOTE | 2023-11-14 09:17 | Electrocardiogram Report ---
Test Reason : Blood Pressure : / mmHG Vent. Rate : 082 BPM Atrial Rate : 082 BPM P-R Int : 130 ms QRS Dur : 070 ms QT Int : 392 ms P-R-T Axes : 036 062 042 degrees QTc Int : 457 ms Normal sinus rhythm Normal ECG When compared with ECG of 30-JUL-2023 15:20, No significant change was found Confirmed by Alex Hollingsworth ([id number]) on 11/14/2023 9:17:24 AM Referred By: REFERRED SELF Confirmed By:Alex Hollingsworth
[2023-11-14] MEDS: POTASSIUM CHLORIDE PWD 20 MEQ PACK PO ONE (09:24)
[2023-11-14] MEDS: CLOPIDOGREL BISULFATE 300 MG TAB PO STA (09:24)
[2023-11-14] MEDS: ASPIRIN 81 MG ECTAB PO SCH (09:24)
[2023-11-14] MEDS: ESCITALOPRAM OXALATE 10 MG TAB PO SCH (09:24)
[2023-11-14] MEDS: POTASSIUM CHLORIDE CRTAB 20 MEQ TABCR PO STA (09:35)
--- NOTE | 2023-11-14 10:23 | XCELERA ---
[id number]
[2023-11-14] MEDS ORDERED: methylPREDNISolone 250 MG in SYRINGE 0 ML IV ONE (11:20)
[2023-11-14] MEDS: MAGNESIUM SULFATE / D5W 1 GM/100 ML BAG IV ONE (12:23)
[2023-11-14] MEDS: methylPREDNISolone 250 MG in DEXTROSE 5% 100 ML IV ONE (12:55)
[2023-11-14] MEDS: ACETAMINOPHEN 325 MG TAB PO PRN (15:45)
[2023-11-15 07:40] LABS: Creatinine Clr Calc Pharmacy 99.5 ml/min; Est GFR (Non-African American) 100.1 ml/min; Potassium 3.8 mmol/L (3.5-5.1)
[2023-11-15] MEDS: CLOPIDOGREL BISULFATE 75 MG TAB PO SCH (08:56)
--- NOTE | 2023-11-15 10:10 | Neurology Progress Note ---
Date of Service November 15, 2023 Assessment & Plan (1) Acute CVA (cerebrovascular accident): (2) CADASIL (cerebral autosomal dominant arteriopathy with subcortical infarcts and leukoencephalopathy): Plan Although there is no specific disease modifying treatment for CADASIL, long-term antithrombotic therapy (daily low-dose aspirin or other antiplatelet agents) is typically recommended. There is no data to support use of oral anticoagulants. Management of hypertension is also recommended, as well as glucose control and use of statins in individuals with elevated lipids. Migraines can be treated with nonsteroidal anti-inflammatories. Triptans are generally avoided. Donepe zil could be utilized to address CADASIL associated cognitive impairment and dementia. Agree with dual antiplatelet therapy for the time being, would continue for 3 weeks, then transition to aspirin monotherapy, 81 mg/day. Because the benefit of statins in patients with CADASIL is not entirely clear and her lipid panel is normal, I am skeptical that lowering her LDL with a statin would be beneficial. If patient's mental status does not improve, would recommend a repeat noncontrast brain MRI as well as an EEG. I do agree with Dr. Velasco, in that this patient's examination does seem to have a functional quality. However, given her extent of chronic cerebrovascular disease/CADASIL findings on MRI, I wonder if she may be developing CADASIL associated vascular type of dementia. Would not recommend starting a trial of donepezil at this point in time, however. Consider obtaining formal outpatient neuropsychological evaluation. Would recommend checking a vitamin B12, folate, homocystine, methylmalonic acid level. Agree with recommendations for headache management including IV fluids, antiemetics, consideration of a trial of Depakote if symptoms persist. Consider trial of Toradol for headache associated pain if necessary. Please call with any questions. Admission and Anticipated Discharge Date Admission Date: November 13, 2023 Subjective Follow-up regarding stroke The patient is a 68-year-old female who has been following with Dr. Chairez in the outpatient neurology clinic for chronic cerebrovascular disease and migraine. It looks like she was diagnosed with CADASIL (cerebral autosomal dominant arteriopathy with subcortical infarcts and leukoencephalopathy). This particular diagnosis may have been made sometime in 2016 although I was unable to find any specific documentation in [facility] or [facility] regarding when this genetic diagnosis was achieved. She does have a history of recurrent neurologic symptoms and brain MRI findings that would be consistent with this diagnosis, however. She saw Dr. Velasco in neurological consultation yesterday regarding confusion, headache, emesis. She continues to exhibit some confusion this morning and seems to have some difficulty expressing herself and following commands, she will stare blankly, react very slowly, but other times speaks fluently and exhibits intact comprehension. She does not have any obvious focal motor deficits on examination. I do agree with Dr. Velasco, in that her examination does have a functional appearance and that the very small punctate infarct within the right frontal lobe would be unlikely to be responsible for any difficulty with speech or gross neurologic deficits. She continues to complain of nausea, intermittently holds her head but does not endorse headache. Results & Data Vital Signs (Past 12 Hours) Vital Signs Temp Pulse Pulse Resp BP BP Pulse Ox 11/15/23 07:42 36.8 C 61 18 163/72 H 93 11/15/23 07:20 11/15/23 07:10 63 11/15/23 03:51 37.2 C 62 20 153/80 H 93 11/14/23 23:12 37.8 C H 65 20 154/80 H 93 11/14/23 21:50 63 O2 Del Method O2 Flow Rate 11/15/23 07:42 Room Air 11/15/23 07:20 Room Air 11/15/23 07:10 11/15/23 03:51 Nasal Cannula 2 11/14/23 23:12 Nasal Cannula 2 11/14/23 21:50 Laboratory Results WBC 11.26, hemoglobin 12.0, hematocrit 35.7, MCV 86.7, platelet count 425, sodium 136, potassium 3.8, BUN 12, creatinine 0.48, glucose 128, hemoglobin A1c 5.8, calcium 9.0, magnesium 2.0, AST 21, ALT 13, triglycerides 88, cholesterol 179, LDL 107, HDL 54, TSH 1.021 Diagnostic Findings CTA of the head and neck completed November 13, 2023 was normal. Brain MRI completed November 13, 2023 revealed a 4 mm acute right frontal lobe lacunar infarct, no hemorrhage. There was extensive chronic microvascular ischemic disease including white matter T2 hyperintensity involving the anterior temporal poles which may be seen in this disorder. No evidence of hemorrhage. I independently reviewed these images. Exam (Neuro) Constitutional: well developed and + behavioral limitations Eyes: normal visual velazquez by confrontation, PERRL and EOM intact bilaterally; no nystagmus Neurologic: Oriented to:: Other (Patient does not state her name when asked to do so) Attention: Span Intact (Exhibits varying degrees of inattentiveness) Language: negative Naming Objects (Stares blankly when asked to identify objects) Speech Fluency: Other (At times during the interview, spoke fluently) Fund of Knowledge: Vocabulary (Seems to understand vocabulary, but seems intermittently confused) Cranial Nerves: Normal II, III, IV, , V, VII, VIII, IX, X, XI and XII Motor Strength: Normal Lower Extremities and Normal Upper Extremities Motor Tone: Normal Lower Extremities and Normal Upper Extremities Muscle Bulk/Involuntary Movements: No Involuntary Movements; negative Muscle Atrophy Sensation: Light Touch Intact and Pain/Temperature Intact Coordination: negative Finger-Nose Abnormal Deep Tendon Reflexes: Rt Biceps: 2+, Lt Biceps: 2+, Rt Patellar: 2+ and Lt Patellar: 2+ Coding Level of Care Code 81485 SUB INP/OBS CARE 3/50MIN Diagnoses Acute CVA (cerebrovascular accident) I63.9 CADASIL (cerebral autosomal dominant arteriopathy with subcortical infarcts and leukoencephalopathy) I67.850 Time Spent (min) 60 Comment Total time includes patient contact, chart review, counseling, note preparation
[2023-11-15] MEDS: ONDANSETRON INJ 2 MG/ML 2 ML VIAL IV PRN (11:36)
--- NOTE | 2023-11-15 11:59 | Pharmacy Report ---
- Date of Service November 15, 2023 - Pharmacy CVA/TIA Medication Review Medications to Prevent Stroke handout has been added to the patients discharge packet. Antiplatelet(s) * ASA 81mg PO daily, Plavix 75mg PO daily * DAPT x3 weeks with plan to transition to ASA monotherapy Cholesterol * High intensity statin deferred per neuro: "Because the benefit of statins in patients with CADASIL is not entirely clear and her lipid panel is normal, I am skeptical that lowering her LDL with a statin would be beneficial" DVT Prophylaxis * SCD knee * Pharmacologic DVT prophylaxis deferred due to extensive "allergy" list and hx GI bleeds -- provider may add if prolonged hospital stay Therapeutic Anticoagulation * No history of Afib/Aflutter noted Type 2 Diabetes * Patient does not have T2DM * Pre-DM, as indicated by HbA1c 5.8% (11/14/23) * Recommend diet/lifestyle counseling, consider CDE consult
--- NOTE | 2023-11-15 17:39 | Hospitalist Progress Note ---
Date of Service November 15, 2023 Assessment & Plan (1) Acute CVA (cerebrovascular accident): Plan: 68 y/o woman history of TIA, CADASIL, migraine with aura and chronic headaches presented with confusion, vomiting, difficulty speaking following a headache that started around 9 pm. Found to have tiny right frontal infarct on brain MRI but does not correlate well with presenting symptoms. Is left handed. Symptomatically improved over first night but still has aphasia, decreased speech output. Found to have 4 mm right frontal CVA on brain MRI. CTA head/neck unremarkable Symptoms include expressive aphasia, exam with some inconsistent/functional components -neurology consulted - reviewed recs - consideration of complex migraine symptoms, consideration for somatoform disorder, toxic encephalopathy ( medical cannabis use) -per Dr. Munoz repeat brain MRI and/or EEG if not improving -standard stroke evaluation and 21 days DAPT with loading dose recommended, continue ASA alone after that. Her neurologist had recommended aspirin last year but she declined over concern of some recent LGIB -24h permissive hypertension -failed swallow screen in ED though swallowed without difficulty 11/13 - ST consulted -TTE c bubble completed - no shunt, normal EF, unremarkable -tele monitoring - all sinus rhythm to date -A1c 5.8%, lipid panel LDL 107 and not a clear benefit of statin in CADASIL per neuro -PT/OT/ST (2) CADASIL (cerebral autosomal dominant arteriopathy with subcortical infarcts and leukoencephalopathy): Plan: per Dr. Naranjo's note 11/30/2022: "CADASIL is a long-term diagnosis. Per patient has had confirmatory neuroimaging, genetic testing and has been followed by neurology here, previously evaluated at [facility]. Current associated symptoms include TIA- like symptoms maybe once a month, intermittent migraines and occasional cognition issues with difficulty learning new materials and intermittent numbness in her digits." Did not respond to trial of nifedipine last visit with Dr. Chairez 09/21/2022 he encouraged her to take 81 mg aspirin regularly for stroke prevention, she declined however because she had recent colonic bleed and was worried about recurrent GI bleeding see above (3) Headache: Plan: History of migraine with aura. Presenting symptoms possibly related to complex migraine treated for acute migraine with IV magnesium and Solu-Medrol 11/13. I do not think she has headache today. Per neurology recs avoid triptan/vasoconstricting meds (4) Vomiting: Plan: Ondansetron PRN Resolved (5) Hypothyroid: Plan: TSH 1, continue thyroid medication Plan Hypokalemia - replaced, resolved Chronic medical problems: B12 deficiency Chronic abdominal pain Asthma Migraine with aura, chronic daily headache Cognitive impairment Depression with anxiety - cont celexa VTE Prophylaxis - SCDs. declines anticoagulants because of her history of CADASIL. Can d/w neurologist whether that would include prophylaxis dose. Currently on DAPT I updated her Cain by phone 11/13, in person 11/14 Admission and Anticipated Discharge Date Admission Date: November 15, 2023 Subjective remains aphasic difficult to communicate with, not attempting to use sign board or write denied headache keeps saying "you disappeared" and "I'm suffering" once said "I have CADASIL" in room Physical Exam 2 Physical Exam: PHYSICAL EXAMINATION Last 24h vital signs reviewed, see documentation in flowsheet General: sitting in chair by window HEENT: Normocephalic, atraumatic, pupils round and equal, sclerae anicteric, no conjunctival injection, moist mucus membranes Lungs: Normal respiratory effort. Clear to auscultation bilaterally. No RRW Heart: Regular rate and rhythm, no murmurs. No JVD Abdomen: Soft, nontender, nondistended. Bowel sounds present. Extremities: Warm, dry, well-perfused. No extremity edema. Neuro: Alert, expressive aphasia, produces some phrases, unclear how much she understands, face symmetric, neo, eomi, moves 4 extremities well by observation but poor/inconsistent effort with strength exam Psych: frustrated Results & Data Results & Data Vital Signs (Past 12 Hours) Vital Signs Temp Pulse Pulse Resp BP BP Pulse Ox 11/15/23 15:37 36.7 C 64 18 168/80 H 93 11/15/23 15:00 56 L 11/15/23 11:29 36.7 C 58 L 18 173/72 H 93 11/15/23 07:42 36.8 C 61 18 163/72 H 93 11/15/23 07:20 11/15/23 07:10 63 O2 Del Method 11/15/23 15:37 Room Air 11/15/23 15:00 11/15/23 11:29 Room Air 11/15/23 07:42 Room Air 11/15/23 07:20 Room Air 11/15/23 07:10 Laboratory Results 11/14/23 05:38 11/15/23 06:38 PG Care Time/CCT Total # of Minutes Spent Total Time Spent with Patient: Total time spent is greater than 50% in coordination of care (as documented) at patient's floor/unit and/or counseling patient: Coding Level of Care Code 89230 SUB INP/OBS CARE 2/35MIN Diagnoses Acute CVA (cerebrovascular accident) I63.9 CADASIL (cerebral autosomal dominant arteriopathy with subcortical infarcts and leukoencephalopathy) I67.850 Headache R51.9 Vomiting R11.10 Hypothyroid E03.9
[2023-11-16 06:52] LABS: BUN Creatinine Ratio 22.6 (10-20); Calcium 8.6 mg/dl (8.6-10.3); Creatinine Clr Calc Pharmacy 90.1 ml/min; Est GFR (African American) 112.3 ml/min; Est GFR (Non-African American) 96.9 ml/min; Potassium 3.5 mmol/L (3.5-5.1)
--- NOTE | 2023-11-16 09:58 | Neurology Progress Note ---
Date of Service November 16, 2023 Assessment & Plan (1) Acute CVA (cerebrovascular accident): (2) CADASIL (cerebral autosomal dominant arteriopathy with subcortical infarcts and leukoencephalopathy): (3) Encephalopathy acute: Plan Small acute right frontal lobe infarct in the context of CADASIL. This patient does seem to be improving compared with yesterday. Her speech is a bit more fluent and her comprehension seems improved as well. She continues to endorse some headache and nausea consistent with migraine which is also often associated with CADASIL. Her current hospitalization is likely due to acute reversible encephalopathy which is a known clinical feature of CADASIL as well. (Acute reversible encephalopathy occurring in the context of CADASIL has been characterized by a variety of signs and symptoms including altered consciousness, visual hallucinations, seizures, focal neurologic deficits, dysarthria, aphasia, neglect, inattention, apraxia, and visual agnosia.) Again, this patient is clinically improving. Would continue with current medical management. Does not require a repeat brain MRI or EEG at this time. See yesterday's progress note for additional details. Admission and Anticipated Discharge Date Admission Date: November 15, 2023 Subjective Follow-up regarding stroke, CADASIL The patient does seem to be a little improved today compared with yesterday. She is more alert, attentive, her speech is a bit more fluent although she continues to exhibit moderate difficulty with expressive speech, and seemingly receptive speech at times as well. Her cognitive symptoms remain inconsistent and somewhat variable throughout the interview, however. She does endorse headache and a little nausea. She complains that her breakfast was "disgusting." She variably has difficulty following simple commands, again, inconsistent. She does not exhibit any gross weakness or motor deficits. I had recommended some additional lab evaluation yesterday including vitamin B12, methylmalonic acid, folate, and homocystine levels. The B12 and folate levels are normal, MMA and homocystine are pending. Again, her brain MRI does reveal extensive chronic microvascular ischemic disease in a pattern that would be seen in an individual with CADASIL. The study also reveals a small 4 mm right frontal lobe lacunar infarct. CT angiography of the head and neck are normal. An echocardiogram was negative for cardioembolic source. No evidence of atrial fibrillation on ECG. Results & Data Vital Signs (Past 12 Hours) Vital Signs Temp Pulse Pulse Resp BP Pulse Ox O2 Del Method 05/21/24 07:44 36.6 C 58 L 16 130/78 95 Room Air 11/16/23 07:20 58 L 11/16/23 03:10 36.9 C 60 14 129/60 92 Room Air 11/16/23 00:00 36.8 C 62 14 147/75 H 92 Room Air 11/15/23 22:00 60 Exam (Neuro) Constitutional: well developed and + behavioral limitations; no acute distress Eyes: normal visual velazquez by confrontation, PERRL and EOM intact bilaterally; no nystagmus Neurologic: Oriented to:: Person Attention: Span Intact Language: Other; negative Naming Objects or Repeating Phrases Cranial Nerves: Normal II, III, IV, , V, VII, VIII, IX, X, XI and XII Motor Strength: Normal Lower Extremities and Normal Upper Extremities Muscle Bulk/Involuntary Movements: No Involuntary Movements Coordination: Normal Details: Patient continues to have some difficulty with object naming as well as following simple commands. She is unable to read text. These difficulties are variable, however, and occur intermittently throughout the interview. At times her speech is fluent and she is able to follow commands, although with some prompting. Processing speed seems modestly reduced. Coding Level of Care Code 53107 SUB INP/OBS CARE 235MIN Diagnoses Acute CVA (cerebrovascular accident) I63.9 CADASIL (cerebral autosomal dominant arteriopathy with subcortical infarcts and leukoencephalopathy) I67.850 Encephalopathy acute G93.40 Time Spent (min) 40 Comment Total time includes patient contact, chart review, counseling, note preparation
[2023-11-16 12:27] LABS: Appearance Urine Clear (Clear); Bacteria Urine Automated None Seen (None Seen); Bilirubin Urine Negative (Negative); Blood Urine Negative (Negative); Cast Urine Automated 0-2 /lpf (0-2); Color Urine Yellow; Epithelial Cell Urine Auto 0-2 /hpf (0-2); Glucose Urine UA Negative (Negative); Ketones Urine 2+ (Negative); Leukocyte Esterase Urine 1+ (Negative); Nitrite Urine Negative (Negative); Protein Urine Negative (Negative); RBC Urine Automated 0-2 /hpf (0-2); Specific Gravity Urine 1.011 (1.000-1.030); Urobilinogen Urine Negative (Negative); pH Urine 7.5 (4.5-7.5)
--- NOTE | 2023-11-16 16:23 | Hospitalist Progress Note ---
Date of Service November 16, 2023 Assessment & Plan (1) Acute CVA (cerebrovascular accident): Plan: acute right frontal CVA, 4mm, as seen on MRI. Primary symptom has been expressive aphasia which has been fluctuating by report. acute CVA is in the setting of known "CADASIL" (as well as migraine with auras). CTA head/neck unremarkable Echo with normal EF and no PFO/ASD Appreciate neurology consultation - advises: * 21 days DAPT with loading dose recommended, continue ASA alone after that. * lipid panel - LDL 107 and not a clear benefit of statin in CADASIL per neurology. * PT/OT/ST Aphasia slowly improving. Deferring on repeat MRI brain. (2) CADASIL (cerebral autosomal dominant arteriopathy with subcortical infarcts and leukoencephalopathy): Plan: per records -- "CADASIL is a long-term diagnosis. Per patient has had confirmatory neuroimaging, genetic testing and has been followed by neurology here, previously evaluated at [facility]. Current associated symptoms include TIA- like symptoms maybe once a month, intermittent migraines and occasional cognition issues with difficulty learning new materials and intermittent numbness in her digits." Also by report she did not respond to trial of nifedipine last visit with Dr. Chairez 09/21/2022 he encouraged her to take 81 mg aspirin regularly for stroke prevention, she declined however because she had recent c olonic bleed and was worried about recurrent GI bleeding see above in #1 (3) Headache: Plan: History of migraine with aura. Presenting symptoms possibly related to complex migraine Treated for acute migraine with IV magnesium and Solu-Medrol 11/13. Denied headache today but c/o intermittent, brief episodes of vertigo -- will add meclizine 12.5mg TID. Per neurology recs avoid triptan/vasoconstricting meds. (4) Vomiting: Plan: resolved 2nd to migraine early in admission? (5) Hypothyroid: Plan: TSH 1 continue synthroid (6) Low grade fever: Plan: cxr w/o pneumonia recent u/a wnl resp biofire 11/13/23 completely negative will repeat u/a and urine cx check tick-borne labs as well follow temps Plan Hypokalemia - replaced, resolved Chronic medical problems -- all stable: B12 deficiency - resolved (B12 level this admission >1000) Chronic abdominal pain - no complaints today Asthma - no flare at this time Cognitive impairment Depression with anxiety - cont celexa VTE Prophylaxis - ambulation. By report declines anticoagulants because of her history of CADASIL. I updated her Cain by phone this evening patient is progressing Admission and Anticipated Discharge Date Admission Date: November 15, 2023 Subjective tele overnight wnl patient was able to transfer from beside the bed to back in bed w/o difficulty she continues with expressive aphasia but, by report, is much better than prior days she gets caught up in trying to get certain words out and does get frustrated by this she was able to recall that she is on plavix right now she denied any specific complaints for me Review of Systems Review of Systems: gen - eating fair cv - no pain pulm - no dyspnea GI - no pain Physical Exam Physical Exam: gen - NAD, expressive aphasia (mild) neck - no JVD heart - RRR, s1 s2, no murmur lungs - CTA b/l abd - soft NT ND BS+ ext - no edema, pulses 2+ b/l neuro - strength 5/5 x 4 exts; gait was steady; no facial droop; expressive aphasia still present, no receptive aphasia Results & Data Results & Data Vital Signs (Past 12 Hours) Vital Signs Temp Pulse Pulse Resp BP Pulse Ox O2 Del Method 11/16/23 15:24 69 11/16/23 11:28 36.3 C L 58 L 18 148/72 H 93 Room Air 11/16/23 07:44 36.6 C 58 L 16 130/78 95 Room Air 11/16/23 07:20 58 L Laboratory Results Laboratory Results - last 48 hr 11/15/23 11/16/23 11/16/23 06:38 05:53 11:50 WBC RBC Hgb Hct MCV MCH MCHC RDW Std Deviation RDW Coeff of Kelly Plt Count MPV Immature Gran % (Auto) Neut % (Auto) Lymph % (Auto) [place] % (Auto) Eos % (Auto) Baso % (Auto) Neut # (Auto) Lymph # (Auto) [place] # (Auto) Eos # (Auto) Baso # (Auto) Immature Gran # (Auto) Sodium 135 L Potassium 3.5 Chloride 102 Carbon Dioxide 25 Anion Gap 8 BUN 12 Creatinine 0.53 L Est Cr Clr Drug Dosing 90.1 Est GFR ( Amer) 112.3 Est GFR (Non-Af Amer) 96.9 BUN/Creatinine Ratio 22.6 H Glucose 99 Calcium 8.6 C-Reactive Protein Vitamin B12 1240 H Folate > 22.30 Urine Color Yellow Urine Appearance Clear Urine pH 7.5 Ur Specific [place] 1.011 Urine Protein Negative Urine Glucose (UA) Negative Urine Ketones 2+ H Urine Blood Negative Urine Nitrite Negative Urine Bilirubin Negative Urine Urobilinogen Negative Ur Leukocyte Esterase 1+ H Urine WBC (Auto) 11-20 H Urine RBC (Auto) 0-2 U Hyaline Cast (Auto) 0-2 U Epithel Cells (Auto) 0-2 Urine Bacteria (Auto) None Seen PG Care Time/CCT Total # of Minutes Spent Total Time Spent with Patient: Total time spent is greater than 50% in coordination of care (as documented) at patient's floor/unit and/or counseling patient: Coding Level of Care Code 46472 SUB INP/OBS CARE 2/35MIN Diagnoses Acute CVA (cerebrovascular accident) I63.9 CADASIL (cerebral autosomal dominant arteriopathy with subcortical infarcts and leukoencephalopathy) I67.850 Headache R51.9 Vomiting R11.10 Hypothyroid E03.9 Low grade fever R50.9
[2023-11-16] MEDS: MECLIZINE 12.5 MG TAB PO SCH (17:28)
[2023-11-17 07:42] LABS: Basophils # (auto) 0.06 K/uL (0.00-0.20); Basophils % (auto) 0.7 %; Eosinophils # (auto) 0.11 K/uL (0.00-0.50); Eosinophils % (auto) 1.4 %; Hematocrit (blood only) 35.8 % (37.0-47.0); Hemoglobin 12.7 g/dl (12.0-16.0); Immature Granulocytes # (auto) 0.02 K/uL (0.01-0.20); Immature Granulocytes % (auto) 0.2 %; Lymphocytes # (auto) 1.07 K/uL (1.20-3.40); Lymphocytes % (auto) 13.2 %; Mean Corpuscular Hemoglobin 30.2 pg (25.0-34.0); Mean Corpuscular Hgb Conc 35.5 g/dL (32.0-36.0); Mean Platelet Volume 10.7 fL (9.4-12.4); Monocytes # (auto) 0.58 K/uL (0.11-0.59); Monocytes % (auto) 7.2 %; Neutrophils # (auto) 6.25 K/uL (1.40-6.50); Neutrophils % (auto) 77.3 %; Platelet Count 418 K/uL (130-400); RDW Coefficient of Variation 12.9 % (11.5-14.5); RDW Standard Deviation 39.5 fL (36.4-46.3); Red Blood Count 4.21 M/uL (4.20-5.40); White Blood Count 8.09 K/ul (4.8-10.8)
[2023-11-17] MEDS: LORazepam 1 MG TAB PO STA (11:55)
--- NOTE | 2023-11-17 21:56 | Hospitalist Progress Note ---
Date of Service November 17, 2023 Assessment & Plan (1) Acute CVA (cerebrovascular accident): Plan: acute right frontal CVA, 4mm, as seen on MRI. Primary symptom had been expressive aphasia which has resolved. acute CVA is in the setting of known "CADASIL." CTA head/neck unremarkable Echo with normal EF and no PFO/ASD Appreciate neurology consultation - advised: * 21 days DAPT (asa + plavix) then continue ASA alone after that. * lipid panel - LDL 107 and not a clear benefit of statin in CADASIL per neurology. * PT/OT/ST consults appreciated. Deferring on repeat MRI brain since she has improved nicely. (2) CADASIL (cerebral autosomal dominant arteriopathy with subcortical infarcts and leukoencephalopathy): Plan: per records -- "CADASIL is a long-term diagnosis. Per patient has had confirmatory neuroimaging, genetic testing and has been followed by neurology here, previously evaluated at [facility]. Current associated symptoms include TIA- like symptoms maybe once a month, intermittent migraines and occasional cognition issues with difficulty learning new materials and intermittent numbness in her digits." Also by report she did not respond to trial of nifedipine last visit with Dr. Chairez 09/21/2022 he encouraged her to take 81 mg aspirin regularly for stroke prevention, she declined however because she had recent colonic bleed and was worried about recurrent GI bleeding she is willing to take the aspirin/plavix but she questions the efficacy of doing such see above in #1 (3) Headache: Plan: History of migraine with aura. Continues with migraine. Declines taking anything for it today. Treated for acute migraine with IV magnesium and Solu-Medrol 11/13. Still with brief episodes of dizziness/vertigo -- cont meclizine 12.5mg TID for now. Per neurology recs avoid triptan/vasoconstricting meds. (4) Vomiting: Plan: resolved 2nd to migraine early in admission? (5) Hypothyroid: Plan: TSH 1 continue synthroid (6) Low grade fever: Plan: cxr w/o pneumonia recent u/a wnl resp biofire 11/13/23 completely negative urine cx negative lyme negative anaplasmosis & babesia screens negative if any fever recurs will send DNA studies for the above tick-borne infections fortunately no fever today Plan Hypokalemia - replaced, resolved Chronic medical problems -- all stable: B12 deficiency - resolved (B12 level this admission >1000) Chronic abdominal pain - no complaints Asthma - no flare at this time Cognitive impairment - 2nd CADASIL Depression with anxiety - cont celexa VTE Prophylaxis - ambulation. By report declines anticoagulants because of her history of CADASIL. I updated her Cain by phone yesterday evening suspect we can d/c home tomorrow if stable overnight she asks that we not get blood work on her tomorrow am Admission and Anticipated Discharge Date Admission Date: November 15, 2023 Subjective patient feeling better headache still present but improved eating but doesn't like the food anxious to go home dizziness still present but able to ambulate speech more fluent and aphasia resolved tele stable overnight Review of Systems Review of Systems: cv - no chest pain pulm - no dyspnea GI - no pain or N/V Physical Exam Physical Exam: gen - NAD, expressive aphasia resolved neck - no JVD mouth - MMM eyes - no nystagmus heart - RRR, s1 s2, no murmur lungs - CTA b/l abd - soft NT ND BS+ ext - no edema, pulses 2+ b/l neuro - expressive aphasia resolved, speech clear/fluent, no facial droop Results & Data Results & Data Vital Signs (Past 12 Hours) Vital Signs Temp Pulse Pulse Resp BP BP Pulse Ox 11/17/23 20:10 37.3 C 70 20 136/70 95 11/17/23 15:47 79 11/17/23 15:15 36.7 C 62 13 112/64 94 11/17/23 11:26 37.0 C 60 14 163/78 H 95 O2 Del Method 11/17/23 20:10 Room Air 11/17/23 15:47 11/17/23 15:15 Room Air 11/17/23 11:26 Room Air Laboratory Results Laboratory Results - last 24 hr 11/16/23 11/17/23 05:53 06:52 WBC 8.09 RBC 4.21 Hgb 12.7 Hct 35.8 L MCV 85.0 MCH 30.2 MCHC 35.5 RDW Std Deviation 39.5 RDW Coeff of Kelly 12.9 Plt Count 418 H MPV 10.7 Immature Gran % (Auto) 0.2 Neut % (Auto) 77.3 Lymph % (Auto) 13.2 [place] % (Auto) 7.2 Eos % (Auto) 1.4 Baso % (Auto) 0.7 Neut # (Auto) 6.25 Lymph # (Auto) 1.07 L [place] # (Auto) 0.58 Eos # (Auto) 0.11 Baso # (Auto) 0.06 Immature Gran # (Auto) 0.02 C-Reactive Protein 2.48 H Homocysteine 6.6 Anaplasma Smear See Comment Babesia Smear See Comment Lyme Disease Screen Negative Diagnostic Findings Urine culture negative PG Care Time/CCT Total # of Minutes Spent Total Time Spent with Patient: Total time spent is greater than 50% in coordination of care (as documented) at patient's floor/unit and/or counseling patient: Coding Level of Care Code 31440 SUB INP/OBS CARE 2/35MIN Diagnoses Acute CVA (cerebrovascular accident) I63.9 CADASIL (cerebral autosomal dominant arteriopathy with subcortical infarcts and leukoencephalopathy) I67.850 Headache R51.9 Vomiting R11.10 Hypothyroid E03.9 Low grade fever R50.9
[2023-11-17] MEDS: LORazepam 1 MG TAB PO SCH (22:26)
--- NOTE | 2023-11-18 15:49 | Discharge Summary ---
Date of Service November 18, 2023 Admission HPI Per Admitting Provider Angeles Kruger is a 68 year old female with CADASIL (cerebral autosomal dominant arteriopathy with subcortical infarcts and leukoencephalopathy) and recurrent strokes/TIAs who presents to the ER with receptive and expressive dysphasia. Unable to get any history from the patient as she just says yes and no - possibly appropriately but also inappropriately to questions. Patient's no longer at bedside but from ER provider and triage notes she has had a headache and confusion starting around 9pm last night with vomiting throughout the night. Discharge Exam gen - NAD, expressive aphasia resolved neck - no JVD mouth - MMM eyes - no nystagmus heart - RRR, s1 s2, no murmur lungs - CTA b/l abd - soft NT ND BS+ ext - no edema, pulses 2+ b/l neuro - expressive aphasia resolved, speech clear/fluent, no facial droop Discharge Data Allergies Allergy/AdvReac Type Severity Reaction Status Date / Time argatroban Allergy Severe Unknown Verified 11/13/23 15:35 dabigatran etexilate Allergy Severe Unknown Verified 11/13/23 15:35 [From Pradaxa] vancomycin Allergy Severe RASH Verified 11/13/23 15:35 cat dander Allergy Unknown Unknown Verified 11/13/23 15:35 dog dander Allergy Unknown Unknown Verified 11/13/23 15:35 doxycycline Allergy Unknown RASH,VOMITT Verified 11/13/23 15:35 ING erythromycin base Allergy Unknown rash Verified 11/13/23 15:35 grass pollen Allergy Unknown Unknown Verified 11/13/23 15:35 horse dander Allergy Unknown Unknown Verified 11/13/23 15:35 apixaban AdvReac Severe Life-threatening Verified 11/13/23 15:35 ADR to ALL anticoagulants (Dx: CADASIL) edoxaban AdvReac Severe Life-threatening Verified 11/13/23 15:35 ADR to ALL anticoagulants (Dx: CADASIL) enoxaparin AdvReac Severe Life-threatening Verified 11/13/23 15:35 ADR to ALL anticoagulants (Dx: CADASIL) heparin AdvReac Severe Life-threatening Verified 11/13/23 15:35 ADR to ALL anticoagulants (Dx: CADASIL) rivaroxaban AdvReac Severe Life-threatening Verified 11/13/23 15:35 ADR to ALL anticoagulants (Dx: CADASIL) sodium citrate AdvReac Severe Life-threatening Verified 11/13/23 15:35 ADR to ALL anticoagulants (Dx: CADASIL) warfarin AdvReac Severe Life-threatening Verified 11/13/23 15:35 ADR to ALL anticoagulants (Dx: CADASIL) naproxen AdvReac Intermediate elevated BP Verified 11/13/23 15:35 acetaminophen [From Vicodin] AdvReac Unknown vomiting Verified 11/13/23 15:35 hydrocodone [From Vicodin] AdvReac Unknown Vomiting Verified 11/13/23 15:35 Consultations 11/13/23 16:19 ED Decision to Admit Stat 11/13/23 21:18 Consult Neurology Routine Ordered Studies 11/13/23 14:29 CT head/brain wo con Stat CTA head w con [CT angio head w con] Stat CTA neck with con [CT angio neck with con] Stat 11/13/23 16:10 MRI Brain [MR brain wo con] Stat Hospital Course (1) Acute CVA (cerebrovascular accident): acute right frontal CVA, 4mm, as seen on MRI. Primary symptom had been expressive aphasia which has resolved. acute CVA is in the setting of known "CADASIL." CTA head/neck unremarkable Echo with normal EF and no PFO/ASD Appreciate neurology consultation - advised: * 21 days DAPT (asa + plavix) then continue ASA alone after that. * lipid panel - LDL 107 and not a clear benefit of statin in CADASIL per neurology. * PT/OT/ST consults appreciated. Deferring on repeat MRI brain since she has improved nicely. (2) CADASIL (cerebral autosomal dominant arteriopathy with subcortical infarcts and leukoencephalopathy): per records -- "CADASIL is a long-term diagnosis. Per patient has had confirmatory neuroimaging, genetic testing and has been followed by neurology here, previously evaluated at [facility] [place]. Current associated symptoms include TIA- like symptoms maybe once a month, intermittent migraines and occasional cognition issues with difficulty learning new materials and intermittent numbness in her digits." Also by report she did not respond to trial of nifedipine last visit with Dr. Chairez 09/21/2022 he encouraged her to take 81 mg aspirin regularly for stroke prevention, she declined however because she had recent colonic bleed and was worried about recurrent GI bleeding she is willing to take the aspirin/plavix but she questions the efficacy of doing such see above in #1 (3) Headache: History of migraine with aura. Continues with migraine. Declines taking anything for it today. Treated for acute migraine with IV magnesium and Solu-Medrol 11/13. Still with brief episodes of dizziness/vertigo -- cont meclizine 12.5mg TID for now. Per neurology recs avoid triptan/vasoconstricting meds. (4) Vomiting: resolved 2nd to migraine early in admission? (5) Hypothyroid: TSH 1 continue synthroid (6) Low grade fever: cxr w/o pneumonia recent u/a wnl resp biofire 11/13/23 completely negative urine cx negative lyme negative anaplasmosis & babesia screens negative if any fever recurs will send DNA studies for the above tick-borne infections fortunately no fever today Plan Hypokalemia - replaced, resolved Chronic medical problems -- all stable: B12 deficiency - resolved (B12 level this admission >1000) Chronic abdominal pain - no complaints Asthma - no flare at this time Cognitive impairment - 2nd CADASIL Depression with anxiety - cont celexa VTE Prophylaxis - ambulation. By report declines anticoagulants because of her history of CADASIL. I updated her Cain by phone yesterday evening suspect we can d/c home tomorrow if stable overnight she asks that we not get blood work on her tomorrow am Discharge Plan Discharge Items Patient Disposition: Home - Self-Care Reason For Visit: Difficulty speaking (aphasia) Discharge Diagnosis: 1. aphasia due to CADASIL and migraine - aphasia much improved 2. tiny 4mm right frontal lobe stroke likely due to CADASIL 3. confusion - due to CADASIL - improving 4. migraine headache - improved 5. dizziness - improved 6. low-grade fever - resolved; cause uncertain; COVID/flu/RSV testing negative; urine culture negative; chest x-ray normal; lyme test negative Activity: As commented below Activity Comment: gradually increase activities as tolerated over the next 7-10 days Driving/Machine Use: NO DRIVING unless cleared by Dr Reeder Non-emergency contact: Primary Care Provider and Neurologist Call non-emergency contact if: you have any medication questions, your symptoms worsen and you have a fever Follow-up/Referrals: Javid Chairez MD [Physician] - 11/30/23 9:30 am (Follow up as scheduled) Ese Reeder MD [Primary Care Provider] - 11/24/23 11:30 am Diet: Regular Marleni Attending Provider Instructions: Ms Reich, You were hospitalized due to having confusion, headache, and difficulty speaking. These symptoms were due to your CADASIL condition as well as a tiny stroke found in the front portion of the right brain. Migraine headache likely also played a role in your symptoms. You made gradual improvements with supportive care and time. Your speech, headache, and other symptoms are all doing better. [facility] saw you in consult and recommended the following - 1. pcnc-tgc-ggbmbtv aspirin 81mg daily, potentially indefinitely 2. a 21-day course of plavix (clopidogrel) -- you have received 4 doses while here; thus, your prescription is for 17 more days of treatment; once the 17 days is complete you will stop plavix completely 3. PT, OT, and speech therapies during your stay In addition to the above you had some low-grade, intermittent fevers. A source for the low-grade temperatures was not found. As noted above we screened you for a variety of infections and none were found. You have had normal temperatures for 48+ hours prior to discharge. Additional recommendations - 1. no driving unless Dr Reeder tells you it is safe to do so 2. take it easy over the next 1-2 weeks as you recover from this event; no heavy exertional activities; light walks are fine 3. if you are having recurrent migraine headaches that are not responding to your fioricet migraine medicine please contact Dr Chairez's office ([facility]); they may prescribe a newer form of migraine medicine called Nurtec or Ubrelvy which are generally safe with your CADASIL condition 4. if you continue to have any visual troubles please see your eye doctor TASH for an eye exam Follow-up - see separate section Return to [facility] if - * you have fevers over 100 degrees * you have worsening confusion * you have a recurrence of difficulty speaking * you have any swallowing trouble, difficulty walking, weakness, etc * any other concerns It was our pleasure to care for you! Please continue to feel better, -Dr Ely Yepez Tie Inspector Provider Instructions: Risk Factors for Stroke: You can reduce your chances of stroke by working with your medical provider to adopt a healthy lifestyle. Some specific ways to lower your chance of stroke are: * If you are a smoker, now is the time to stop smoking cigarettes * If you are diabetic, improve the control of your blood sugars * Avoid excessive amounts of alcohol * Control high blood pressure * Lose weight if you are overweight * Be sure to lead an active lifestyle * Eat a healthy diet low in salt, cholesterol and fat You should know about other risk factors for stroke that you are unable to control. These include: * Age 55 years or older * Male gender * Certain racial groups: , or / * Family History of Stroke, Mini stroke or Heart Attack * Sickle Cell Disease Who to Call and When: Medical Emergencies: Call 911 immediately if you experience any of the following warning signs and symptoms of Stroke: * Sudden numbness or weakness of the face, arm or leg, especially on one side of the body * Sudden confusion, trouble speaking or understanding * Sudden trouble seeing in one or both eyes * Sudden trouble walking, dizziness, loss of balance or coordination * Sudden severe headache with no cause Do not delay calling 911 if you experience any warning signs or symptoms of a stroke. Delay in seeking medical attention may affect what treatments can be given to you. . Pending Studies at Discharge: No Stand-Alone Forms: [facility], Smoking Cessation, Medications to Prevent Stroke Medications and DC Order Prescriptions: New clopidogrel 75 mg Tablet 75 mg PO QAM 17 Days Qty: 17 0RF Rx Instructions: first dose 11/19/23. aspirin 81 mg Tablet,Delayed Release (Dr/Ec) 81 mg PO QAM Qty: 90 3RF Rx Instructions: purchase vgob-igf-kfoymyu lorazepam 1 mg Tablet 1 mg PO HS PRN (Reason: sleep) Qty: 1 0RF Continued thyroid (pork) 60 mg tablet 60 mg PO HS Qty: 90 3RF escitalopram oxalate [Lexapro] 10 mg tablet 10 mg PO DAILY Medical Marijuana 1 dose PO DIRECTED PRN (Reason: Pain) ergocalciferol (vitamin D2) 1,250 mcg (50,000 unit) capsule 50,000 unit PO WK Rx Instructions: Caregiver unsure of the day that pt takes this medication bygjnkzssz-tkowjtibaxfcf-cycw [Fioricet] 50-300-40 mg capsule 1 cap PO Q8H PRN (Reason: migraines and pain) Qty: 1 0RF Rx Instructions: Caregiver unsure of this medication at this date/time. Original Directions: 1 tablet by mouth every 8 hours as needed for migrains and pain Discharge Orders: Discharge Order (Routine); Ordered 11/18/23 Ordered By: Wayne Graves Admission Data Admit Date/Time: 11/15/23 15:46 Attending Provider: Wayne Graves Admit Provider: Alexa Scales Primary Care Provider: Ese Reeder Other Providers: Wayne Jorgensen; Juanito Velasco Coding Diagnoses Acute CVA (cerebrovascular accident) I63.9 CADASIL (cerebral autosomal dominant arteriopathy with subcortical infarcts and leukoencephalopathy) I67.850 Headache R51.9 Vomiting R11.10 Hypothyroid E03.9 Low grade fever R50.9
== END 2023-11-18 16:21 | disposition home or self-care (01) | DRG 64 ==
LOC: 2E 14:17 → ED 14:17 → SUATTDRO 17:48 → 2E 20:51 → 2N 11-14 11:45 → SUATTDRO 11-15 15:46
DX: E87.6 Hypokalemia; R11.2 Nausea with vomiting, unspecified; I67.850 Cerebral autosomal dominant arteriopathy with subcortical infarcts and leukoencephalopathy; Z88.8 Allergy status to other drugs, medicaments and biological substances; I63.81 Other cerebral infarction due to occlusion or stenosis of small artery; R41.0 Disorientation, unspecified; Z79.899 Other long term (current) drug therapy; G31.84 Mild cognitive impairment of uncertain or unknown etiology; G43.109 Migraine with aura, not intractable, without status migrainosus; R50.9 Fever, unspecified; J45.909 Unspecified asthma, uncomplicated; R42 Dizziness and giddiness; R10.9 Unspecified abdominal pain; Z79.890 Hormone replacement therapy; F41.8 Other specified anxiety disorders; Z88.6 Allergy status to analgesic agent; E53.8 Deficiency of other specified B group vitamins; Z91.048 Other nonmedicinal substance allergy status; Z11.52 Encounter for screening for COVID-19; Z88.1 Allergy status to other antibiotic agents; Z88.5 Allergy status to narcotic agent; R47.01 Aphasia; I67.83 Posterior reversible encephalopathy syndrome; G89.29 Other chronic pain; E03.9 Hypothyroidism, unspecified